=== PATIENT | male | born 1975 | race Caucasian/White ===

== ENCOUNTER 2016-10-06 23:36 | Inpatient (IN) ==
[2016-10-07] MEDS ORDERED: SODIUM CHLORIDE 0.9% 1,000 ML IV STA (00:03)
[2016-10-07] MEDS ORDERED: ALBUTEROL/IPRATROPIUM 3 ML NEB RESP TX STA (00:03)
[2016-10-07] MEDS ORDERED: ONDANSETRON 4 MG/2 ML VIAL IV STA (00:03)
[2016-10-07 00:22] LABS: Apearance,Urine CLOUDY (Clear); Bilirubin,Urine Negative (Negative); Blood, Urine Negative (Negative); Glucose,Urine (UA) Negative (Negative); Ketones,Urine Negative (Negative); Mucus,Urine Moderate /LPF (Occasional); Nitrite,Urine Negative (Negative); Protein,Urine 30 MG/DL; RBC,Urine 78 /HPF (0-4); Squamous Epithelial Cell,Urine Occasional /HPF (0-10); Urine Color Yellow (Yellow); Urine Specific Gravity 1.019 (1.001-1.035); Urine Urobilinogen < 2.0 EU/DL (0.2-1.0); WBC,Urine 295 /HPF (0-6)
--- NOTE | 2016-10-07 00:23 | EKG Report ---
Stationary ECG Study [facility] Test Date: 10/07/2016 12:18:38 AM Pat Name: VAHID FOSTER Department: Room: Gender: M [employer]: ARMIDA : 1975 Requested by: Marisel Tinoco Order Number: [id number] Reading MD: CARMEN GUTIERREZ Intervals [place] Rate: 108 P: 65 LA: 147 QRS: 53 QRSD: 104 T: 62 QT: 349 QTc: 412 Interpretive Statements SINUS TACHYCARDIA ABNORMAL RHYTHM ECG Electronically Signed On 10-07-16 08:59:15 CDT by CARMEN GUTIERREZ [id number]
[2016-10-07 00:41] LABS: Basophils % 0.3 % (0.0-0.8); Eosinophils # 0.2 10*3/uL (0.0-0.87); Eosinophils % 2.4 % (0.00-10.9); Hemoglobin 11.5 GM/DL (14.0-18.0); Immature Granulocytes % 0.3 %; Immature Granulocytes Absolute 0.02 #; Lymphocytes # 1.9 10*3/uL (1.4-4.0); Lymphocytes % 23.7 % (21.2-54.2); Mean Corpuscular HGB Conc 29.7 GM/DL (32-36); Mean Corpuscular Hemoglobin 25 PG (27-34); Mean Corpuscular Volume 83.9 FL (87-102); Mean Platelet Volume 9.7 FL (9.6-12.0); Monocytes # 0.5 10*3/uL (0.11-0.8); Neutrophils # 5.3 10*3/uL (1.4-7.4); Neutrophils % 67.3 % (38.7-73.9); Platelet Count 435 T/CUMM (130-400); Red Blood Count 4.61 MC/CUMM (3.8-5.5); Red Cell Distribution Width 16.3 % (9.3-17.3); White Blood Count 7.9 T/CUMM (4-12)
[2016-10-07] MEDS ORDERED: ONDANSETRON 4 MG/2 ML VIAL ONE (00:41)
[2016-10-07 00:48] LABS: Hematocrit 38.5 VOL% (42.0-52.0)
[2016-10-07 00:59] LABS: Albumin 2.9 G/DL (3.4-5.0); Bilirubin,Total 0.5 MG/DL (0.2-1.0); Calcium 9.6 MG/DL (8.5-10.1); Total Protein 7.3 G/DL (6.4-8.3)
[2016-10-07 01:00] LABS: Magnesium 2.2 MG/DL (1.8-2.4); Osmolality,Calculated 277.5 MOS/KG (273-304); Potassium 4.3 MMOL/L (3.5-5.1)
[2016-10-07] MEDS ORDERED: PIPERACILLIN/TAZOBACTAM 4.5 MG in SODIUM CHLORIDE 0.9% 100 ML IV STA (01:19)
[2016-10-07] MEDS ORDERED: PIPERACILLIN/TAZOBACTAM 4,500 MG VIAL IV ONE (01:33)
--- NOTE | 2016-10-07 01:38 | Emergency Department Note ---
Temo Eid Sierra, am scribing for, and in the presence of, Marisel Tinoco DO 23:56. IEarnest Catherine, DO, personally performed the services described in this documentation, ascribed by Nilsa Plascencia in my presence, and it is both accurate and complete . Arrival - Arrival Mode of Arrival: Stretcher Limitations: Physical Limitation Source: EMS - History of Present Illness HPI Narrative: Pt is a 41 y/o male that was brought to the ED from [facility] via EMS for evaluation of pt's trach tube falling out earlier today according to EMS. Pt is paraplegic due to a brain injury. Pt will open his eyes but is not responsive. Pt has no family present at the time. EMS reports pt's trach tube has been capped for over a month and skilled nursing. Nurse states pt was admitted to the hospital a couple of months for a "bad UTI." EMS reports the coughing began in the ER. No other complaints/pain in ED. Onset (ago): hour(s) Consistency: constant Allergies/Adverse Reactions: Allergies Allergy/AdvReac Type Severity Reaction Status Date / Time carisoprodol [From Soma] Allergy Unknown/Unable Verified 09/02/16 18:16 to obtain Home Medications: Home Medications Medication Instructions Recorded Confirmed Type Acetamin/Codeine 120-12 mg/5Ml 12.5 ml PEG Q8HR PRN 09/03/16 10/06/16 History [Tylenol/Codeine Liquid] Acetaminophen Tab [Tylenol Tab] 650 mg PER TUBE Q4H PRN #0 tablet 09/10/1610/06 Rx Albuterol/Ipratropium Neb [Duoneb] 3 ml RESP TX RT Q6H 09/10/16 10/06/16 Rx Ciprofloxacin 0.3% Oph Soln 2 drop RIGHT EYE Q4HR bottle 09/10/16 10/06/16 Rx [Ciloxan 0.3% Oph Soln] Diltiazem Tab [Cardizem Tab] 60 mg PO Q6H PRN #0 tablet 09/10/16 10/06/16 Rx Enoxaparin [Lovenox] 40 mg SUBCUT Q24H syringe 09/10/16 10/06/16 Rx Lansoprazole Odt Tab [Prevacid 30 mg PO DAILY tablet 09/10/16 10/06/16 Rx Solutab] Metoclopramide Tab [Reglan Tab] 5 mg PEG Q8H tablet 09/10/16 10/06/16 Rx Metoprolol Tartrate Tab [Lopressor 50 mg PEG BID tablet 09/10/16 10/06/16 Rx Tab] Morphine Inj 3 mg IV BID PRN #0 syringe 09/10/16 10/06/16 Rx Sodium Hypochlorite 0.25% Irr 1 applic TOP BID applic 09/10/16 10/06/16 Rx [Dakins 1/2 Strength 0.25% Soln] cefTAZidime [Fortaz] 1,000 mg IV Q12H vial 09/10/16 10/06/16 Rx levETIRAcetam TAB [Keppra Tab] 1,500 mg PEG BID tablet 09/10/16 10/06/16 Rx Review of System - Review of System ROS unobtainable: other (pt is paraplegic and is nonverbal and no family is present) Medical,Surgical,& Family Hx - Medical History Cardio: History of: Hypertension Neurology: History of: Neurological Problems (quadraplegia from an anoxic brain injury) Respiratory: History of: Obstructive Sleep Apnea, Respiratory Problems (trach) - Surgical History Surgical History: noncontributory - Family History Family History: noncontributory - Social History Smoking Status: Unknown if ever smoked Frequency of Alcohol Use: Unknown Type of Drug Use: Unknown Marital Status: Single Lives With:: Drafter [employer] Design Functional capacity: bed bound Exam Vital Signs: Vital Signs Temperature 98.2 F 10/06/16 23:36 Pulse Rate 107 H 10/07/16 01:10 Respiratory Rate 20 10/07/16 01:10 Blood Pressure 90/60 10/06/16 23:36 O2 Sat by Pulse Oximetry 100 10/07/16 01:10 - General Exam limited due to: other (pt is unresponsive) - Head Head exam: Present: atraumatic, normocephalic - Eye Eye exam: Present: PERRL, EOMI - ENT ENT exam: Present: other (thick sputum) - Neck Neck exam: Present: full ROM, other (trach site well healed) - Chest Chest inspection: Present: symmetric chest wall rise. Absent: tenderness - Respiratory Respiratory exam: Present: rhonchi (coarse rhonchi) - Cardiovascular Cardiovascular exam: Present: regular rate, normal rhythm, normal heart sounds - Abdominal Exam Abdominal exam: Present: soft, normal bowel sounds. Absent: distention, tenderness - exam: Present: other (catheter is draining urine with heavy sediment) - Neurological Exam Neurological exam: Present: alert - Psychiatric Psychiatric exam: Present: normal affect, normal mood - Skin Skin exam: Present: warm, dry Course Course Narrative: This is a 41-year-old male who is a quadriplegic from an anoxic brain injury. He has been using a tracheostomy for until about the last month. Now he has been on nasal cannula oxygen. He also has a PEG feeding tube. The patient is basically bedbound and is not verbally communicative at all. Apparently this evening the tracheostomy tube fell out the skilled nursing contacted the family and they wanted him evaluated. At arrival in the ER the stoma is noted to be well healed and stenotic. The patient is also noted to have a large amount of oral secretions and a very deep sounding cough. No other history is available when I initially evaluated the patient family was not present. The patient also has an indwelling Mcfadden I reviewed his chart his last admission was about a month and a half ago for urinary tract infection. Physical exam the patient is lying on the bed he is not on communicative he is asleep. He is in a position. HEENT exam there is some redness to both eyes. The oral mucosa is moist he has a lot of secretions that are being suctioned out of his mouth. They are yellow in color. His neck is supple he has a well-healed stoma in the trach region. There is no bleeding or drainage noted heart is regular rate and rhythm lungs reveal coarse expiratory next-door wheezing and rhonchi. Abdomen is round soft nontender with good bowel sounds he is a PEG tube present. His extremities are intact he is a quadriplegic. Neurologic exam no new deficits noted he has an anoxic brain injury. Chest x-ray done in the ER reveals a probable development of a right lower lobe pneumonia compared this to previous x -ray. Blood work has been obtained he also has a urinary tract infection. I have spoken to the hospitalist and feel the patient should be admitted for treatment of possible aspiration pneumonia. He has been given Zosyn in the ER he is also been given breathing treatments and blood cultures have been obtained. I have spoken to the patient's mom who is in the ER and she is in agreement with this treatment plan. - Consultations Consultation #1: Dr. Thompson has accepted the admission Time: 01:38 Results - Labs CBC & BMP: 10/07/16 00:28 10/07/16 00:28 Lab Results: I have reviewed the patients labs Labs: Laboratory Tests 09/02/16 09/02/16 10/07/16 20:34 20:34 00:11 WBC 12.5 H Hgb 9.3 L Hct 31.5 L MCV 81.2 L MCH 24 L MCHC 29.5 L Plt Count 532 H MPV 8.9 L Neut % (Auto) 79.7 H Lymph % (Auto) 12.2 L Neut # (Auto) 10.0 H Anion Gap 17.5 H Creatinine 0.40 L BUN/Creatinine Ratio 37.00 H Glucose 108 H AST 69 H ALT 107 H Alkaline Phosphatase 118 H Albumin 2.4 L Globulin 4.4 H Albumin/Globulin Ratio 0.5 L Urine Color Yellow Urine Appearance Cloudy Urine pH 6.0 Ur Specific [place] 1.019 Urine Protein 30 Urine Glucose (UA) Negative Urine Ketones Negative Urine Blood Negative Urine Nitrate Negative Urine Bilirubin Negative Urine Urobilinogen < 2.0 H Urine Leukocytes Large H Urine RBC 78 Urine WBC 295 Ur Squamous Epith Cells Occasional Urine Mucus Moderate Urine Yeast (Budding) Many Laboratory Tests 10/06/16 10/07/16 10/07/16 00:28 00:28 00:28 Hgb 11.5 L Hct 38.5 L MCV 83.9 L MCH 25 L MCHC 29.7 L Plt Count 435 H Creatinine 0.40 L BUN/Creatinine Ratio 35.00 H Lactic Acid 1.0 Albumin 2.9 L Globulin 4.4 H Albumin/Globulin Ratio 0.6 L - EKG EKG results: interpreted by ERMD, WNL EKG shows: tachycardia - Diagnostic Findings Procedure: Chest x-ray: image reviewed by me (Right lower lobe pneumonia.) Disposition Clinical Impression: Aspiration pneumonia, UTI (urinary tract infection) Case discussed with: patient's family Disposition: Still a Patient Condition: Stable Time of Disposition: 01:38
--- NOTE | 2016-10-07 02:08 | Hospitalist History & Physical ---
Assessment and Plan (1) Conjunctivitis, right eye Status: Acute Assessment and plan: Resume ciprofloxacin eyedrops. Patient did have them looked at the detention but recently they have been erroneously discontinued and the eye information continues Current Visit: Yes Qualifiers: Conjunctivitis type: chronic Chronic conjunctivitis type: bacterial Qualified Code(s): H10.401 - Unspecified chronic conjunctivitis, right eye (2) Aspiration pneumonia Status: Acute Assessment and plan: Patient is an institutionalized individual therefore this should be treated as a healthcare associated pneumonia with aspiration. She was started Zosyn this will be continued at a dose of 4.5 g IV every 6 hours. Unfortunately I cannot use Zyvox on this patient because of multiple other medication that would interact badly with it. I will therefore settle for vancomycin 1.25 g IV every 12 hours. Consult pharmacy for vancomycin pharmacokinetics and dosing. Duration of antibiotics should be at least 6 days and then reevaluate for alternative treatment Current Visit: Yes (3) UTI (urinary tract infection) Status: Acute Assessment and plan: Above antibiotic should suffice. For microbiology of the urinary cultures Current Visit: Yes History of Present Illness Chief complaint: Dislodged cupped tracheostomy/respiratory distress History of present illness: Mr. Arreola is a 41 year old male hat was brought to the ED from [facility] via EMS for evaluation of pt's trach tube falling out earlier today according to EMS. Pt is paraplegic due to a brain injury. Pt will open his eyes but is not responsive. Pt has no family present at the time. EMS reports pt's trach tube has been capped for over a month and detention. Nurse states pt was admitted to the hospital a couple of months for a "bad UTI." EMS reports the coughing began in the ER. Patient was seen facing the emergency room by Dr. Tinoco who explained to me that this patient had copious mucus suctioned out from his airway. Upon the obtaining an x-ray she was found to have a right lower lobe pneumonia. Patient also has a PEG tube and the possibility of aspiration. Right now the tracheostomy site is dressed and patient is saturating 95% on 2 L/min nasal cannula oxygen. He also has an indwelling Mcfadden catheter. Purulent urine. There is no fever and his total white count is only 7900. Home Medications Medication Instructions Recorded Confirmed Type Acetamin/Codeine 120-12 mg/5Ml 12.5 ml PEG Q8HR PRN 09/03/16 10/06/16 History [Tylenol/Codeine Liquid] Acetaminophen Tab [Tylenol Tab] 650 mg PER TUBE Q4H PRN #0 tablet 09/10/1610/06 Rx Albuterol/Ipratropium Neb [Duoneb] 3 ml RESP TX RT Q6H 09/10/16 10/06/16 Rx Ciprofloxacin 0.3% Oph Soln 2 drop RIGHT EYE Q4HR bottle 09/10/16 10/06/16 Rx [Ciloxan 0.3% Oph Soln] Diltiazem Tab [Cardizem Tab] 60 mg PO Q6H PRN #0 tablet 09/10/16 10/06/16 Rx Enoxaparin [Lovenox] 40 mg SUBCUT Q24H syringe 09/10/16 10/06/16 Rx Lansoprazole Odt Tab [Prevacid 30 mg PO DAILY tablet 09/10/16 10/06/16 Rx Solutab] Metoclopramide Tab [Reglan Tab] 5 mg PEG Q8H tablet 09/10/16 10/06/16 Rx Metoprolol Tartrate Tab [Lopressor 50 mg PEG BID tablet 09/10/16 10/06/16 Rx Tab] Morphine Inj 3 mg IV BID PRN #0 syringe 09/10/16 10/06/16 Rx Sodium Hypochlorite 0.25% Irr 1 applic TOP BID applic 09/10/16 10/06/16 Rx [Dakins 1/2 Strength 0.25% Soln] cefTAZidime [Fortaz] 1,000 mg IV Q12H vial 09/10/16 10/06/16 Rx levETIRAcetam TAB [Keppra Tab] 1,500 mg PEG BID tablet 09/10/16 10/06/16 Rx Allergies Allergy/AdvReac Type Severity Reaction Status Date / Time carisoprodol [From Soma] Allergy Unknown/Unable Verified 09/02/16 18:16 to obtain Medical,Surgical,& Family Hx - Medical History Cardio: History of: Hypertension Neurology: History of: Neurological Problems (quadraplegia from an anoxic brain injury; significant flexion contractures) Respiratory: History of: Obstructive Sleep Apnea, Respiratory Problems (trach) - Surgical History Additional Surgical History: Patient recently underwent debridement of sacral ulcers patient has chronic pressure ulcers in the sacral coccygeal area - Social History Smoking Status: Unknown if ever smoked Frequency of Alcohol Use: Unknown Type of Drug Use: Unknown Review of systems: 12 point system assessment was done. What stands out nausea the pneumonia in the right lower lobe patient with significant flexion contractures from he is quadriplegic patient with anoxic brain damage Exam - Constitutional Vitals: Period Temp Pulse Resp BP Sys/Plata Pulse Ox Last 24 Hr 98.2 F-98.2 F 100-108 20-26 90-90/60-60 94-100 General appearance: other (Incommunicado patient with anoxic brain damage significant contractures) - Head Head exam: Present: normocephalic, atraumatic - Eye Eye exam: Present: other (Noted right eye conjunctivitis) Pupils: Present: JOSE - Neck Neck exam: Present: other (Old tracheal stoma site is dressed is no drainage) - Respiratory Respiratory exam: Present: other (Poor inspiratory pool, no wheezing bilateral rhonchi) - Cardiovascular Cardiovascular exam: Present: regular rate and rhythm - GI/Abdominal GI/Abdominal exam: Present: normal bowel sounds - Extremities Exam Extremities exam: Present: other (Severe flexion contractures dose of muscle bulk) - Back Exam Back exam: Present: other (Contractures) - Neurological Exam Neurological exam: Present: other (Anoxic brain damage with severe flexion contractures) - Psychiatric Psychiatric exam: Present: other (No means of communication, anoxic brain damage ) - Skin Skin exam: Present: other (Sacral decubiti bimalleolar pressure ulcers) Results - Labs CBC & BMP: 10/07/16 00:28 10/07/16 00:28 Lab Results: I have reviewed the past 24 hour labs - Diagnostic Findings Procedure: Chest x-ray: image reviewed by me (Ppossible bibasilar infiltrate)
[2016-10-07] MEDS: CIPROFLOXACIN 0.3% OPH SOLN 2.5 ML BOTTLE RIGHT EYE SCH ×5 (05:36→21:27)
[2016-10-07] MEDS: METOCLOPRAMIDE 5 MG TABLET PEG SCH ×3 (05:36→21:28)
[2016-10-07] MEDS: VANCOMYCIN INJ 1,250 MG in SODIUM CHLORIDE 0.9% 250 ML IV SCH ×2 (05:40→17:03)
--- NOTE | 2016-10-07 06:52 | XRay Report ---
History: Shortness of breath Date: 10/07/2016 Study: Chest x-ray AP portable Comparison exam: September 24, 2016 The previous tracheostomy tube and right PICC line have been removed. The cardiomediastinal silhouette is unremarkable. The pulmonary vasculature is not engorged. There is some mild strandy and hazy bibasilar infiltrate. There is no gross pleural effusion. The osseous structures are unchanged. Impression: Mild bibasilar pneumonia. Consider aspiration pneumonia PROCEDURE INTERPRETED AT [facility] Final Report Signed by: Dr. Ivette Delgadillo
[2016-10-07] MEDS: ALBUTEROL/IPRATROPIUM 3 ML NEB RESP TX SCH ×3 (07:40→20:36)
[2016-10-07] MEDS: SODIUM HYPOCHLORITE 0.25% IRRIG 473 ML BOTTLE TOP SCH ×2 (08:02→20:55)
[2016-10-07] MEDS: ENOXAPARIN 40 MG/0.4 ML SYRINGE SUBCUT SCH (08:02)
[2016-10-07] MEDS: LANSOPRAZOLE ODT 30 MG TABLET PO SCH (08:02)
[2016-10-07] MEDS: METOPROLOL TARTRATE 50 MG TABLET PEG SCH ×2 (08:03→20:55)
[2016-10-07] MEDS: levETIRAcetam 500 MG TABLET PEG SCH ×2 (08:03→20:55)
[2016-10-07] MEDS: PIPERACILLIN/TAZOBACTAM 3,375 MG in SODIUM CHLORIDE 0.9% 100 ML IV SCH ×2 (09:48→20:55)
--- NOTE | 2016-10-07 09:48 | Event Note ---
Consult for wounds. I have been following this patient at [facility]. His sacral ulcer and ankle ulcers all appear healthy and clean. There is no need for debridement. Continue local wound care. I will continue to follow him when he goes back down to [facility].
--- NOTE | 2016-10-07 11:30 | Pulmonology Consult Note ---
Assessment and Plan (1) Right lower lobe pneumonia Status: Acute Assessment and plan: Probably has a mild infiltrate at the right base. Agree with empiric antibiotics. Does not need bronchoscopy at this point. He has a pretty good cough it appears. Current Visit: Yes (2) Urinary tract infection Status: Acute Assessment and plan: Abnormal urinalysis suggesting urinary tract infection. Cultures pending. Previously grew Pseudomonas that was sensitive to Zosyn. Agree with Zosyn this time. Current Visit: No Qualifiers: Urinary tract infection type: catheter-associated UTI Indwelling urinary catheter type: indwelling urethral catheter Encounter type: initial encounter Qualified Code(s): T83.511A - Infection and inflammatory reaction due to indwelling urethral catheter, initial encounter; N39.0 - Urinary tract infection , site not specified (3) Sacral decubitus ulcer, stage IV Status: Chronic Assessment and plan: Dr. Molina has seen him for this. He feels his decubitus ulcers are clean. Just needs wound care while here. Current Visit: No (4) Anoxic brain injury Status: Chronic Assessment and plan: Patient is being fed through PEG tube. He is not responsive. His tracheostomy is now out. If he can control his secretions with cough then he will not need to have the trach replaced. If his x-ray gets worse or is not able to clear secretions, then the tracheostomy could be replaced. Current Visit: No History of Present Illness Chief complaint: Tracheostomy came out History of present illness: Mr. 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 He had a 4 month hospitalization at [facility] with mechanical ventilation and tracheostomy. He went back to a half-way. He developed a urinary tract infection and sepsis a few weeks ago. He also has multiple decubitus ulcers. He was hospitalized here and then at [facility]. His pressure ulcers are better and clean according to Dr. Green the surgeon follows those. He was sent back from [facility] to [facility] and apparently there coughed his tracheostomy out. He was sent over here primarily for that. He was found to have a mild patchy infiltrate at the right lower lobe on his x-ray. Also has a lot of phlegm production. The tracheostomy had just been used for suctioning him out. He was keeping it closed most of the time. At the present time he is comfortable with the tracheostomy out. He has a pretty good cough. He has not had any fever. His white blood count is normal. He does have an abnormal urinalysis and an indwelling Mcfadden catheter. Home Medications Medication Instructions Recorded Confirmed Type Acetamin/Codeine 120-12 mg/5Ml 12.5 ml PEG Q8HR PRN 09/03/16 10/06/16 History [Tylenol/Codeine Liquid] Acetaminophen Tab [Tylenol Tab] 650 mg PER TUBE Q4H PRN #0 tablet 09/10/1610/06 Rx Albuterol/Ipratropium Neb [Duoneb] 3 ml RESP TX RT Q6H 09/10/16 10/06/16 Rx Ciprofloxacin 0.3% Oph Soln 2 drop RIGHT EYE Q4HR bottle 09/10/16 10/06/16 Rx [Ciloxan 0.3% Oph Soln] Diltiazem Tab [Cardizem Tab] 60 mg PO Q6H PRN #0 tablet 09/10/16 10/06/16 Rx Enoxaparin [Lovenox] 40 mg SUBCUT Q24H syringe 09/10/16 10/06/16 Rx Lansoprazole Odt Tab [Prevacid 30 mg PO DAILY tablet 09/10/16 10/06/16 Rx Solutab] Metoclopramide Tab [Reglan Tab] 5 mg PEG Q8H tablet 09/10/16 10/06/16 Rx Metoprolol Tartrate Tab [Lopressor 50 mg PEG BID tablet 09/10/16 10/06/16 Rx Tab] Morphine Inj 3 mg IV BID PRN #0 syringe 09/10/16 10/06/16 Rx Sodium Hypochlorite 0.25% Irr 1 applic TOP BID applic 09/10/16 10/06/16 Rx [Dakins 1/2 Strength 0.25% Soln] cefTAZidime [Fortaz] 1,000 mg IV Q12H vial 09/10/16 10/06/16 Rx levETIRAcetam TAB [Keppra Tab] 1,500 mg PEG BID tablet 09/10/16 10/06/16 Rx Allergies Allergy/AdvReac Type Severity Reaction Status Date / Time carisoprodol [From [facility]] Allergy Unknown/Unable Verified 09/02/16 18:16 to obtain ROS unobtainable: due to mental status Exam (Pulmonay) H&P - Constitutional Vitals: Period Temp Pulse Resp BP Sys/Plata Pulse Ox Last 24 Hr 96.8 F-98.1 F 111-115 19-20 115-123/73-83 93-96 Exam: Patient's afebrile. Oxygen saturation 98% on 2 L nasal biprong's. Pupils react to light he is unresponsive but does move his head and eyes side to side. He does move his arms spontaneously but without purpose apparently. He did pull his tracheostomy out himself but I suspect it was by accident. Tracheostomy site still open but bandaged. Chest reveals few rhonchi equal breath sounds does not sound tight. Heart normal rate rhythm no murmurs no rubs no gallops. Abdomen soft nontender no masses. Extremities no clubbing cyanosis edema. Multiple decubitus ulcers as described by wound care nurse and Dr. Green. Medical,Surgical,& Family Hx - Medical History Cardio: History of: Hypertension Neurology: History of: Neurological Problems (quadraplegia from an anoxic brain injury; significant flexion contractures) Respiratory: History of: Obstructive Sleep Apnea, Respiratory Problems (trach) - Family History Family History: Reports;: Family Hypertension (moms, mom) - Social History Smoking Status: Unknown if ever smoked Frequency of Alcohol Use: Unknown Type of Drug Use: Unknown Results - Labs CBC & BMP: 10/07/16 00:28 10/07/16 00:28 Lab Results: I have reviewed the past 24 hour labs - Diagnostic Findings Procedure: Chest x-ray: image reviewed by me (Mild strand infiltrate right lower lobe. Otherwise same as before.)
[2016-10-07] MEDS: DORNASE ALFA 2.5 MG/2.5 ML VIAL RESP TX SCH (20:30)
[2016-10-08] MEDS: ALBUTEROL/IPRATROPIUM 3 ML NEB RESP TX SCH ×4 (00:13→20:19)
[2016-10-08] MEDS: PIPERACILLIN/TAZOBACTAM 3,375 MG in SODIUM CHLORIDE 0.9% 100 ML IV SCH ×3 (01:56→17:22)
[2016-10-08] MEDS: CIPROFLOXACIN 0.3% OPH SOLN 2.5 ML BOTTLE RIGHT EYE SCH ×7 (01:56→22:41)
[2016-10-08] MEDS: VANCOMYCIN INJ 1,250 MG in SODIUM CHLORIDE 0.9% 250 ML IV SCH ×2 (05:49→23:12)
[2016-10-08] MEDS: METOCLOPRAMIDE 5 MG TABLET PEG SCH ×3 (05:58→22:42)
[2016-10-08 06:58] LABS: Calcium 9.1 MG/DL (8.5-10.1); Magnesium 2.2 MG/DL (1.8-2.4); Osmolality,Calculated 286.8 MOS/KG (273-304); Potassium 3.8 MMOL/L (3.5-5.1); Prealbumin 24.7 MG/DL (20-40)
[2016-10-08] MEDS: DORNASE ALFA 2.5 MG/2.5 ML VIAL RESP TX SCH ×2 (08:01→20:19)
[2016-10-08] MEDS: ENOXAPARIN 40 MG/0.4 ML SYRINGE SUBCUT SCH (08:05)
[2016-10-08] MEDS: levETIRAcetam 500 MG TABLET PEG SCH ×2 (08:06→21:27)
[2016-10-08] MEDS: METOPROLOL TARTRATE 50 MG TABLET PEG SCH ×2 (08:06→21:27)
[2016-10-08] MEDS: SODIUM HYPOCHLORITE 0.25% IRRIG 473 ML BOTTLE TOP SCH ×2 (08:06→22:42)
[2016-10-08] MEDS: LANSOPRAZOLE ODT 30 MG TABLET PO SCH (08:06)
--- NOTE | 2016-10-08 08:43 | Pulmonology Progress Note ---
Pulmonary - PN: Subj Interval history: This 41-year-old white male was sent over from the [facility] after pulling out his tracheostomy. He seems to have done fine with it out. We had considered removing an earlier but still needed it to suction him from time to time. He seems to be breathing better with the tracheostomy out. I would just leave it out. He has one mild area of stranding in his right mid lung that has been called pneumonia. He is on antibiotics for that. Also has urinary tract infection. Could be changed to antibiotics per PEG tube and go back to the [facility] tomorrow if chest x-ray looks okay in the morning. Exam (Progress Note) - Constitutional Vitals: Period Temp Pulse Resp BP Sys/Plata Pulse Ox Last 24 Hr 97.1 F-99.7 F 114-134 14-24 111-130/54-77 90-98 Exam: He has severe hypoxic brain injury and is not responsive. He does look around with his eyes and move his arms from time to time. He is afebrile. Pupils were reactive. Throat clear. Neck supple. Has a bandage over his tracheostomy site. I do not hear any air leak but it will probably take a few days for the cystocele. Chest shows minimal expiratory rhonchi. Actually sounds pretty clear. Heart normal rate rhythm no murmurs. Abdomen soft no masses. PEG tube in place and looks clean. Extremities no clubbing cyanosis or edema. Results - Labs CBC & BMP: 10/07/16 00:28 10/08/16 06:09 Lab Results: I have reviewed the past 24 hour labs Assessment and Plan (1) Right lower lobe pneumonia Status: Acute Assessment and plan: Probably has a mild infiltrate at the right base. Agree with empiric antibiotics. Does not need bronchoscopy at this point. He has a pretty good cough it appears. 10/08/16 very mild pneumonia at worst. Probably could change to Ceftin per PEG tube and discharge tomorrow back to [facility] if chest x-ray is stable or better. Current Visit: Yes (2) Urinary tract infection Status: Acute Assessment and plan: Abnormal urinalysis suggesting urinary tract infection. Cultures pending. Previously grew Pseudomonas that was sensitive to Zosyn. Agree with Zosyn this time. 10/08/16 I do not see a report on the urine culture. Current Visit: No Qualifiers: Urinary tract infection type: catheter-associated UTI Indwelling urinary catheter type: indwelling urethral catheter Encounter type: initial encounter Qualified Code(s): T83.511A - Infection and inflammatory reaction due to indwelling urethral catheter, initial encounter; N39.0 - Urinary tract infection , site not specified (3) Sacral decubitus ulcer, stage IV Status: Chronic Assessment and plan: Dr. Molina has seen him for this. He feels his decubitus ulcers are clean. Just needs wound care while here. Current Visit: No (4) Anoxic brain injury Status: Chronic Assessment and plan: Patient is being fed through PEG tube. He is not responsive. His tracheostomy is now out. If he can control his secretions with cough then he will not need to have the trach replaced. If his x-ray gets worse or is not able to clear secretions, then the tracheostomy could be replaced. 10/08/16 it does appear that he can defend his airway. Has a good cough. Have added cough assist. This could be continued at the nursing center. Current Visit: No
--- NOTE | 2016-10-08 09:03 | Hospitalist Progress Note ---
<Lainey Rodriguez - Last Filed: 10/08/16 09:05> Assessment and Plan (1) Right lower lobe pneumonia Status: Acute Assessment and plan: Agree with pulmonary recommendation; continue ABT. Will change to tablets for peg administration. BC NGTD; WBC's 7.9 today. Current Visit: Yes (2) UTI (urinary tract infection) Status: Acute Assessment and plan: Continue ABT as previously ordered. Current Visit: Yes Hospitalist: Subjective Interval history: Patient seen and examined. No significant overnight events. Tracheostomy decannulated; no respiratory issues reported per staff. Will monitor overnight ; plan to return to SNF in AM. Exam - Constitutional Vitals: Period Temp Pulse Resp BP Sys/Plata Pulse Ox Last 24 Hr 97.1 F-99.7 F 114-134 14-24 111-130/54-77 90-98 General appearance: normal weight, no acute distress - Head Head exam: Present: normal inspection, normocephalic, atraumatic - Eye Eye exam: Present: EOMI. Absent: conjunctival injection, nystagmus Pupils: Present: JOSE, normal accommodation - ENT ENT exam: Present: normal exam, normal external ear exam, normal oropharynx - Neck Neck exam: Present: normal inspection. Absent: lymphadenopathy, meningismus, tenderness, thyromegaly - Respiratory Respiratory exam: Present: rhonchi (scattered), other (tracheostomy de- cannulated.) - Cardiovascular Cardiovascular exam: Present: regular rate and rhythm. Absent: diastolic murmur , gallop, JVD, rubs - GI/Abdominal GI/Abdominal exam: Present: soft, other (PEG intact) - Extremities Exam Extremities exam: Present: other (flexion contractures noted to upper and lower torso) - Neurological Exam Neurological exam: Present: altered, motor sensory deficit - Psychiatric Psychiatric exam: Present: normal affect - Skin Skin exam: Present: normal color, diaphoretic Results - Labs CBC & BMP: 10/07/16 00:28 10/08/16 06:09 Lab Results: I have reviewed the past 24 hour labs <Noni Amaro - Last Filed: 10/08/16 11:35> Hospitalist: Subjective Interval history: Patient seen and examined along with DOV Rodriguez, agree with history, assessment and plan as documented. Patient looks more comfortable today. Possible return to senior care tomorrow on po antibiotics. Exam - Constitutional Vitals: Period Temp Pulse Resp BP Sys/Plata Pulse Ox Last 24 Hr 97.1 F-99.7 F 112-134 14-24 111-130/54-77 90-98 Results - Labs CBC & BMP: 10/07/16 00:28 10/08/16 06:09
[2016-10-08] MEDS: ACETAMINOPHEN 325 MG TABLET PER TUBE PRN (21:27)
[2016-10-09] MEDS: CIPROFLOXACIN 0.3% OPH SOLN 2.5 ML BOTTLE RIGHT EYE SCH ×6 (01:51→22:25)
[2016-10-09] MEDS: PIPERACILLIN/TAZOBACTAM 3,375 MG in SODIUM CHLORIDE 0.9% 100 ML IV SCH ×3 (01:57→18:23)
[2016-10-09] MEDS: ALBUTEROL/IPRATROPIUM 3 ML NEB RESP TX SCH ×4 (03:02→20:00)
[2016-10-09] MEDS: METOCLOPRAMIDE 5 MG TABLET PEG SCH ×3 (05:59→22:25)
[2016-10-09 06:59] LABS: Basophils % 0.2 % (0.0-0.8); Eosinophils # 0.1 10*3/uL (0.0-0.87); Eosinophils % 0.6 % (0.00-10.9); Hematocrit 35.1 VOL% (42.0-52.0); Hemoglobin 10.4 GM/DL (14.0-18.0); Immature Granulocytes % 0.6 %; Immature Granulocytes Absolute 0.09 #; Lymphocytes # 1.8 10*3/uL (1.4-4.0); Lymphocytes % 11.2 % (21.2-54.2); Mean Corpuscular HGB Conc 29.6 GM/DL (32-36); Mean Corpuscular Hemoglobin 25 PG (27-34); Monocytes # 0.7 10*3/uL (0.11-0.8); Monocytes % 4.1 % (1.7-12.7); Neutrophils # 13.6 10*3/uL (1.4-7.4); Neutrophils % 83.3 % (38.7-73.9); Platelet Count 434 T/CUMM (130-400); Red Blood Count 4.18 MC/CUMM (3.8-5.5); Red Cell Distribution Width 16.5 % (9.3-17.3); White Blood Count 16.3 T/CUMM (4-12)
[2016-10-09 07:30] LABS: Albumin 2.7 G/DL (3.4-5.0); Bilirubin,Total 0.6 MG/DL (0.2-1.0); Calcium 8.8 MG/DL (8.5-10.1); Magnesium 2.2 MG/DL (1.8-2.4); Osmolality,Calculated 290.6 MOS/KG (273-304); Potassium 3.7 MMOL/L (3.5-5.1); Total Protein 6.8 G/DL (6.4-8.3)
[2016-10-09] MEDS: DORNASE ALFA 2.5 MG/2.5 ML VIAL RESP TX SCH ×2 (07:34→20:00)
--- NOTE | 2016-10-09 07:56 | Pulmonology Progress Note ---
Pulmonary - PN: Subj Interval history: This 41-year-old white male was [facility] after pulling out his tracheostomy. He seems to have done fine with it out. We had considered removing an earlier but still needed it to suction him from time to time. He seems to be breathing better with the tracheostomy out. I would just leave it out. He has one mild area of stranding in his right mid lung that has been called pneumonia. He is on antibiotics for that. Also has urinary tract infection. Could be changed to antibiotics per PEG tube and go back to the [facility] tomorrow if chest x-ray looks okay in the morning. 10/09/2016 patient having a little more difficulty with coarse rhonchi. White blood count is up to 16,000. No fever. Oxygen saturations acceptable. Chest x -ray looks a little bit worse. I still favor leaving the tracheostomy out if we can. I will plan bronchoscopy in the morning and evaluate his airways. May yet want to get the trach replaced. If he has problems with hypoxemia that is what I would do next. Exam (Progress Note) - Constitutional Vitals: Period Temp Pulse Resp BP Sys/Plata Pulse Ox Last 24 Hr 97.1 F-101.0 F 112-132 14-24 106-122/66-91 90-99 Exam: He has severe hypoxic brain injury and is not responsive. He does look around with his eyes and move his arms from time to time. He is afebrile. Pupils were reactive. Throat clear. Neck supple. Has a bandage over his tracheostomy site. Chest shows rhonchi bilaterally. Equal breath sounds. Heart normal rate rhythm no murmurs. Abdomen soft no masses. PEG tube in place and looks clean. Extremities no clubbing cyanosis or edema. Results - Labs CBC & BMP: 10/09/16 06:31 10/09/16 06:31 Lab Results: I have reviewed the past 24 hour labs - Diagnostic Findings Procedure: Chest x-ray: image reviewed by me (Slightly increased interstitial markings in the bases.) Assessment and Plan (1) Right lower lobe pneumonia Status: Acute Assessment and plan: Probably has a mild infiltrate at the right base. Agree with empiric antibiotics. Does not need bronchoscopy at this point. He has a pretty good cough it appears. 10/08/16 very mild pneumonia at worst. Probably could change to Ceftin per PEG tube and discharge tomorrow back to [facility] if chest x-ray is stable or better. 10/09/2016 he has some bibasilar pneumonia. Elevated white count. No fever. Continuing empiric antibiotics. Not ready to go back to [facility] as yet. I will plan bronchoscopy in the morning. Make a decision after that as to whether we can leave the trach out long-term. I certainly hope that we can do that. He should be able to breathe better with the trach out then with it and and capped. Current Visit: Yes (2) Urinary tract infection Status: Acute Assessment and plan: Abnormal urinalysis suggesting urinary tract infection. Cultures pending. Previously grew Pseudomonas that was sensitive to Zosyn. Agree with Zosyn this time. 10/08/16 I do not see a report on the urine culture. 10/09/2016 only grew some yeast. Cover with Diflucan. Current Visit: No Qualifiers: Urinary tract infection type: catheter-associated UTI Indwelling urinary catheter type: indwelling urethral catheter Encounter type: initial encounter Qualified Code(s): T83.511A - Infection and inflammatory reaction due to indwelling urethral catheter, initial encounter; N39.0 - Urinary tract infection , site not specified (3) Sacral decubitus ulcer, stage IV Status: Chronic Assessment and plan: Dr. Molina has seen him for this. He feels his decubitus ulcers are clean. Just needs wound care while here. 10/09/2016 continuing wound care. Current Visit: No (4) Anoxic brain injury Status: Chronic Assessment and plan: Patient is being fed through PEG tube. He is not responsive. His tracheostomy is now out. If he can control his secretions with cough then he will not need to have the trach replaced. If his x-ray gets worse or is not able to clear secretions, then the tracheostomy could be replaced. 10/08/16 it does appear that he can defend his airway. Has a good cough. Have added cough assist. This could be continued at the nursing center. 10/09/2016 he has a pretty good cough. Remains to be seen how he will do with his pneumonia with his tracheostomy out. Current Visit: No
[2016-10-09 08:12] LABS: INR 1.2; PT Patient Result 12.5 SECS
--- NOTE | 2016-10-09 08:24 | XRay Report ---
Referring Physician: ANKITA Rodriguez Exam: XR chest 1V portable Date: October 09, 2016 at 6:02 AM Reason: COPD Comparison: Chest one view portable October 07, 2016 Findings: The cardiac silhouette is upper normal in size. The lungs are poorly expanded, and there are scattered opacities within both lower lung zones. These opacities likely represent atelectasis, but there could also be pneumonia. No pneumothorax or pleural effusion is identified. The osseous structures appear stable. There is again a sclerotic density at the left humeral neck. Please see previous studies of the left humerus for further details. Impression: There are scattered opacities within both lower lung zones. The opacities within the left lower lung zone have slightly increased. This likely represents atelectasis, but there could also be pneumonia. PROCEDURE INTERPRETED AT [facility] DEPARTMENT OF RADIOLOGY Final Report Signed by: Dr. Jose De Jesus
[2016-10-09] MEDS: ENOXAPARIN 40 MG/0.4 ML SYRINGE SUBCUT SCH (08:42)
[2016-10-09] MEDS: METOPROLOL TARTRATE 50 MG TABLET PEG SCH ×2 (08:43→20:48)
[2016-10-09] MEDS: LANSOPRAZOLE ODT 30 MG TABLET PO SCH (08:43)
[2016-10-09] MEDS: levETIRAcetam 500 MG TABLET PEG SCH ×2 (08:43→20:49)
[2016-10-09] MEDS: methylPREDNISolone SOD SUC 40 MG/1 ML VIAL IV SCH ×2 (08:44→18:20)
[2016-10-09] MEDS: SODIUM HYPOCHLORITE 0.25% IRRIG 473 ML BOTTLE TOP SCH ×2 (08:44→21:01)
[2016-10-09] MEDS: VANCOMYCIN INJ 1,250 MG in SODIUM CHLORIDE 0.9% 250 ML IV SCH ×2 (08:45→22:19)
--- NOTE | 2016-10-09 16:14 | Hospitalist Progress Note ---
Assessment and Plan (1) Urinary tract infection Status: Acute Current Visit: No Qualifiers: Urinary tract infection type: catheter-associated UTI Indwelling urinary catheter type: indwelling urethral catheter Encounter type: initial encounter Qualified Code(s): T83.511A - Infection and inflammatory reaction due to indwelling urethral catheter, initial encounter; N39.0 - Urinary tract infection , site not specified (2) Anoxic brain injury Status: Chronic Current Visit: No (3) Right lower lobe pneumonia Status: Acute Current Visit: Yes Hospitalist: Subjective Interval history: No acute events overnight. Increase in wbc count today. Afebrile. Pulmonary assisting. Plan for bronchoscopy tomorrow. Exam - Constitutional Vitals: Period Temp Pulse Resp BP Sys/Plata Pulse Ox Last 24 Hr 98.1 F-99.9 F 107-132 14-24 106-135/70-91 90-99 General appearance: normal weight - Head Head exam: Present: normocephalic, atraumatic - Eye Eye exam: Present: EOMI Pupils: Present: JOSE - ENT ENT exam: Present: normal exam - Neck Neck exam: Present: normal inspection - Respiratory Respiratory exam: Present: clear to auscultation bilaterally. Absent: rhonchi, wheezes - Cardiovascular Cardiovascular exam: Present: regular rate and rhythm - GI/Abdominal GI/Abdominal exam: Present: normal bowel sounds, soft. Absent: tenderness, rebound - Extremities Exam Extremities exam: Present: normal inspection - Back Exam Back exam: Present: normal inspection - Skin Skin exam: Present: warm, intact Results - Labs CBC & BMP: 10/09/16 06:31 10/09/16 06:31
[2016-10-09] MEDS: DILTIAZEM 60 MG TABLET PO PRN (20:49)
[2016-10-10] MEDS: ALBUTEROL/IPRATROPIUM 3 ML NEB RESP TX SCH ×4 (00:36→19:19)
[2016-10-10] MEDS: methylPREDNISolone SOD SUC 40 MG/1 ML VIAL IV SCH ×4 (01:21→23:00)
[2016-10-10] MEDS: PIPERACILLIN/TAZOBACTAM 3,375 MG in SODIUM CHLORIDE 0.9% 100 ML IV SCH ×3 (01:26→18:40)
[2016-10-10] MEDS: CIPROFLOXACIN 0.3% OPH SOLN 2.5 ML BOTTLE RIGHT EYE SCH ×6 (01:29→21:44)
[2016-10-10] MEDS: METOCLOPRAMIDE 5 MG TABLET PEG SCH ×3 (06:03→22:11)
[2016-10-10] MEDS ORDERED: PROMETHAZINE 25 MG/1 ML VIAL IM ONE (07:00)
[2016-10-10] MEDS ORDERED: LIDOCAINE 1% 20 ML VIAL MISC INJ ONE (07:30)
[2016-10-10] MEDS ORDERED: MIDAZOLAM 2 MG/2 ML VIAL IV ONE (07:30)
[2016-10-10 07:45] LABS: Hematocrit 34.3 VOL% (42.0-52.0); Hemoglobin 10.3 GM/DL (14.0-18.0); Immature Granulocytes % 0.4 %; Immature Granulocytes Absolute 0.05 #; Lymphocytes # 0.9 10*3/uL (1.4-4.0); Lymphocytes % 7.8 % (21.2-54.2); Mean Corpuscular Hemoglobin 25 PG (27-34); Mean Corpuscular Volume 83.9 FL (87-102); Mean Platelet Volume 10.2 FL (9.6-12.0); Monocytes # 0.1 10*3/uL (0.11-0.8); Monocytes % 1.2 % (1.7-12.7); Neutrophils # 10.5 10*3/uL (1.4-7.4); Neutrophils % 90.6 % (38.7-73.9); Platelet Count 406 T/CUMM (130-400); Red Blood Count 4.09 MC/CUMM (3.8-5.5); Red Cell Distribution Width 16.1 % (9.3-17.3); White Blood Count 11.6 T/CUMM (4-12)
[2016-10-10] MEDS: DORNASE ALFA 2.5 MG/2.5 ML VIAL RESP TX SCH ×2 (07:47→19:19)
[2016-10-10 08:16] LABS: Calcium 9.3 MG/DL (8.5-10.1); Magnesium 2.4 MG/DL (1.8-2.4); Osmolality,Calculated 295.6 MOS/KG (273-304); Phosphorous 3.7 MG/DL (2.5-4.9); Potassium 4.3 MMOL/L (3.5-5.1)
[2016-10-10 08:17] LABS: Lymphocytes 9 % (20-55); Segmented Neutrophils 90 % (50-85); Total Cells Counted 100
[2016-10-10 08:19] LABS: Hypochromasia 1+; Microcytosis 1+
--- NOTE | 2016-10-10 09:44 | Operative Note ---
Date of procedure: 10/10/16 (Abrupt bronchoscopy with bronchial washings) Pre-op diagnosis: Pneumonia retained secretions Post-op diagnosis: same Procedure: After an appropriate time out to be sure we were dealing with Miguel Arreola, the patient was topically anesthetized in the nose and nasopharynx with Xylocaine. He had been given 25 mg of Phenergan intramuscularly on the berry prior to coming to the respiratory suite. 3 L of nasal oxygen was placed in the left naris. The fiberoptic bronchoscope was introduced via the right naris. There were lots of thick secretions in the hypopharynx. His vocal cords were identified and did not seem to function normally in that you could see laryngeal secretions going into the trachea. He had a vigorous cough but it was not clearing the secretions. The bronchoscope was advanced into the trachea. There were retained secretions throughout the tracheobronchial tree. They are worse in both lower lobes. Using saline irrigation to remove the retained secretions. The site of the tracheostomy was noted internally and there is no stenosis at that level. Tracheostomy site is high. The bronchoscope was removed. I did remove some thick nasal pharyngeal secretions prior to totally removing the bronchoscope. Procedure was tolerated well. Based on what I am seeing I think his tracheostomy needs to be replaced for adequate suctioning. His cough does not appear to be adequate. Anesthesia: conscious sedation Surgeon / Physician: Devon Mai Estimated blood loss: none Specimens: other (Bronchial washings for cultures) Condition: stable Disposition: floor Results - Labs CBC & BMP: 10/10/16 07:20 10/10/16 07:20 Discharge Plan - Discharge Medications No Action Acetamin/Codeine 120-12 mg/5Ml [Tylenol/Codeine Liquid] 12.5 ml PEG Q8HR PRN PRN Reason: Pain Acetaminophen Tab [Tylenol Tab] 650 mg PER TUBE Q4H PRN #0 tablet PRN Reason: fever, headache/body aches Albuterol/Ipratropium Neb [Duoneb] 3 ml RESP TX RT Q6H Ciprofloxacin 0.3% Oph Soln [Ciloxan 0.3% Oph Soln] 2 drop RIGHT EYE Q4HR bottle Enoxaparin [Lovenox] 40 mg SUBCUT Q24H syringe Lansoprazole Odt Tab [Prevacid Solutab] 30 mg PO DAILY tablet Metoprolol Tartrate Tab [Lopressor Tab] 50 mg PEG BID tablet Morphine Inj 3 mg IV BID PRN #0 syringe PRN Reason: Pain cefTAZidime [Fortaz] 1,000 mg IV Q12H vial levETIRAcetam TAB [Keppra Tab] 1,500 mg PEG BID tablet Diltiazem Tab [Cardizem Tab] 60 mg PO Q6H PRN #0 tablet PRN Reason: INCREASED HEART RATE Metoclopramide Tab [Reglan Tab] 5 mg PEG Q8H tablet Sodium Hypochlorite 0.25% Irr [Dakins 1/2 Strength 0.25% Soln] 1 applic TOP BID applic - Follow Up or Referral - Forms/Instructions
--- NOTE | 2016-10-10 09:47 | Pulmonology Progress Note ---
Pulmonary - PN: Subj Interval history: This 41-year-old white male was sent over from the skilled nursing after pulling out his tracheostomy. He seems to have done fine with it out. We had considered removing an earlier but still needed it to suction him from time to time. He seems to be breathing better with the tracheostomy out. I would just leave it out. He has one mild area of stranding in his right mid lung that has been called pneumonia. He is on antibiotics for that. Also has urinary tract infection. Could be changed to antibiotics per PEG tube and go back to the skilled nursing tomorrow if chest x-ray looks okay in the morning. 10/09/2016 patient having a little more difficulty with coarse rhonchi. White blood count is up to 16,000. No fever. Oxygen saturations acceptable. Chest x -ray looks a little bit worse. I still favor leaving the tracheostomy out if we can. I will plan bronchoscopy in the morning and evaluate his airways. May yet want to get the trach replaced. If he has problems with hypoxemia that is what I would do next. 10/10/2016 patient has a lower white count. However he is having some diaphoresis. No fever has been recorded. He had fiberoptic bronchoscopy this morning which is dictated separately. He has a strong cough but is not able to expectorate sputum. I think he clearly needs his tracheostomy replaced for tracheal toilet. Exam (Progress Note) - Constitutional Vitals: Period Temp Pulse Resp BP Sys/Plata Pulse Ox Last 24 Hr 98.7 F-99.6 F 107-142 14-29 93-166/60-79 90-98 Exam: He has severe hypoxic brain injury and is not responsive. He does look around with his eyes and move his arms from time to time. He is afebrile. Pupils were reactive. Throat clear. Neck supple. Has a bandage over his tracheostomy site. Chest shows rhonchi bilaterally. Equal breath sounds. Heart normal rate rhythm no murmurs. Abdomen soft no masses. PEG tube in place and looks clean. Extremities no clubbing cyanosis or edema. Results - Labs CBC & BMP: 10/10/16 07:20 10/10/16 07:20 Lab Results: I have reviewed the past 24 hour labs Assessment and Plan (1) Right lower lobe pneumonia Status: Acute Assessment and plan: Probably has a mild infiltrate at the right base. Agree with empiric antibiotics. Does not need bronchoscopy at this point. He has a pretty good cough it appears. 10/08/16 very mild pneumonia at worst. Probably could change to Ceftin per PEG tube and discharge tomorrow back to skilled nursing if chest x-ray is stable or better. 10/09/2016 he has some bibasilar pneumonia. Elevated white count. No fever. Continuing empiric antibiotics. Not ready to go back to skilled nursing as yet. I will plan bronchoscopy in the morning. Make a decision after that as to whether we can leave the trach out long-term. I certainly hope that we can do that. He should be able to breathe better with the trach out then with it and and capped. 10/10/2016 he has actually bibasilar pneumonia. On empiric antibiotics. Based on bronchoscopy findings today we need to replace his tracheostomy to adequately clear his airways. Current Visit: Yes (2) Urinary tract infection Status: Acute Assessment and plan: Abnormal urinalysis suggesting urinary tract infection. Cultures pending. Previously grew Pseudomonas that was sensitive to Zosyn. Agree with Zosyn this time. 10/08/16 I do not see a report on the urine culture. 10/09/2016 only grew some yeast. Cover with Diflucan. Current Visit: No Qualifiers: Urinary tract infection type: catheter-associated UTI Indwelling urinary catheter type: indwelling urethral catheter Encounter type: initial encounter Qualified Code(s): T83.511A - Infection and inflammatory reaction due to indwelling urethral catheter, initial encounter; N39.0 - Urinary tract infection , site not specified (3) Sacral decubitus ulcer, stage IV Status: Chronic Assessment and plan: Dr. Molina has seen him for this. He feels his decubitus ulcers are clean. Just needs wound care while here. 10/09/2016 continuing wound care. 10/10/16 followed by wound care and surgery as needed. Current Visit: No (4) Anoxic brain injury Status: Chronic Assessment and plan: Patient is being fed through PEG tube. He is not responsive. His tracheostomy is now out. If he can control his secretions with cough then he will not need to have the trach replaced. If his x-ray gets worse or is not able to clear secretions, then the tracheostomy could be replaced. 10/08/16 it does appear that he can defend his airway. Has a good cough. Have added cough assist. This could be continued at the nursing center. 10/09/2016 he has a pretty good cough. Remains to be seen how he will do with his pneumonia with his tracheostomy out. 10/10/2016 patient still not responsive. He has a vigorous cough but fails to clear secretions I think he continues to aspirate upper airway secretions. We need to get his tracheostomy replaced. Current Visit: No
[2016-10-10] MEDS ORDERED: LIDOCAINE 1%/EPI INJ 20 ML VIAL MISC INJ ONE (11:20)
[2016-10-10] MEDS: ENOXAPARIN 40 MG/0.4 ML SYRINGE SUBCUT SCH (11:27)
[2016-10-10] MEDS: METOPROLOL TARTRATE 50 MG TABLET PEG SCH ×2 (11:28→20:58)
[2016-10-10] MEDS: levETIRAcetam 500 MG TABLET PEG SCH ×2 (11:28→20:57)
[2016-10-10] MEDS: LANSOPRAZOLE ODT 30 MG TABLET PO SCH (11:28)
[2016-10-10] MEDS: VANCOMYCIN INJ 1,250 MG in SODIUM CHLORIDE 0.9% 250 ML IV SCH ×2 (11:29→23:02)
[2016-10-10] MEDS: SODIUM HYPOCHLORITE 0.25% IRRIG 473 ML BOTTLE TOP SCH ×2 (11:30→21:06)
--- NOTE | 2016-10-10 12:04 | Hospitalist Progress Note ---
<Michael,Lainey - Last Filed: 10/10/16 12:01> Assessment and Plan (1) Right lower lobe pneumonia Status: Acute Assessment and plan: Agree with pulmonary recommendation; continue ABT. Will change to tablets for peg administration. BC NGTD; WBC's 7.9 today. 5/4-Bronch this AM; there is concern that he may not be able to adequately clear his airway; agree with pulmonary recommendation to replace trach. Current Visit: Yes (2) UTI (urinary tract infection) Status: Acute Assessment and plan: Continue ABT as previously ordered. Current Visit: Yes (3) Hypernatremia Status: Acute Assessment and plan: Sodium level at 146; will increase free water flushes to 200 ml every 6 hours. Current Visit: No Hospitalist: Subjective Interval history: Patient seen and examined; no significant overnight events reported. Bronchscopy this AM per Dr. Mai. Exam - Constitutional Vitals: Period Temp Pulse Resp BP Sys/Plata Pulse Ox Last 24 Hr 96.2 F-99.6 F 107-146 14-29 93-166/48-79 90-98 General appearance: normal weight, no acute distress - Head Head exam: Present: normal inspection, normocephalic - Eye Eye exam: Present: EOMI Pupils: Present: JOSE, normal accommodation - ENT ENT exam: Present: normal exam - Neck Neck exam: Present: normal inspection. Absent: lymphadenopathy, meningismus, tenderness, thyromegaly - Respiratory Respiratory exam: Present: decreased breath sounds - Cardiovascular Cardiovascular exam: Present: regular rate and rhythm. Absent: carotid bruit, diastolic murmur, gallop, rubs, systolic murmur, tachycardia - GI/Abdominal GI/Abdominal exam: Present: normal bowel sounds, soft - Extremities Exam Extremities exam: Present: other (flexion contractures noted to upper and lower torso) - Back Exam Back exam: Present: normal inspection - Neurological Exam Neurological exam: Present: alert, altered, motor sensory deficit - Psychiatric Psychiatric exam: Present: normal affect - Skin Skin exam: Present: normal color, warm, dry Results - Labs CBC & BMP: 10/10/16 07:20 10/10/16 07:20 Lab Results: I have reviewed the past 24 hour labs <Noni Amaro - Last Filed: 10/10/16 14:44> Assessment and Plan (1) Urinary tract infection Status: Acute Current Visit: No Qualifiers: Urinary tract infection type: catheter-associated UTI Indwelling urinary catheter type: indwelling urethral catheter Encounter type: initial encounter Qualified Code(s): T83.511A - Infection and inflammatory reaction due to indwelling urethral catheter, initial encounter; N39.0 - Urinary tract infection , site not specified (2) Anoxic brain injury Status: Chronic Current Visit: No (3) Right lower lobe pneumonia Status: Acute Current Visit: Yes Hospitalist: Subjective Interval history: Patient seen independently of [employer]PER Michael, agree with assessment and plan as documented. Plan is for tracheostomy with stomal revision in the OR tomorrow. Exam - Constitutional Vitals: Period Temp Pulse Resp BP Sys/Plata Pulse Ox Last 24 Hr 96.2 F-99.6 F 112-146 14-29 93-166/48-79 90-98 Results - Labs CBC & BMP: 10/10/16 07:20 10/10/16 07:20
--- NOTE | 2016-10-10 13:15 | Consultation ---
Assessment and Plan - Time spent with patient Time spent with patient: Less than 30 minutes (1) Tracheostomy dependence Status: Acute Assessment and plan: I recommend tracheostomy with stomal revision tomorrow in the OR will obtain consent and put this on the schedule. Thank you very much for this consult Current Visit: Yes (2) Dyspnea Status: Acute Current Visit: Yes (3) Anoxic brain injury Status: Chronic Current Visit: No History of Present Illness - Data of Consult Patient: new to practice Consult date: 10/10/16 Requesting Physician: Devon Mai - Consult Narrative Reason for consult: Trach History of present illness: Mr. Arreola is a 41 year old male with anoxic brain injury and the history were requiring trach. He recently had trach removed as were trying to advance his independence and over the last 3 days as the tracheostomy has closed he has had more more difficulty and there is a desire to replace the trach. ENT is evaluated to see if this can be done at bedside or if she will need a formal tracheostomy again. CC: Noni Amaro MD - Home Medications and Allergies Home Medications: Home Medications Medication Instructions Recorded Confirmed Type Acetamin/Codeine 120-12 mg/5Ml 12.5 ml PEG Q8HR PRN 09/03/16 10/06/16 History [Tylenol/Codeine Liquid] Acetaminophen Tab [Tylenol Tab] 650 mg PER TUBE Q4H PRN #0 tablet 09/10/1610/06 Rx Albuterol/Ipratropium Neb [Duoneb] 3 ml RESP TX RT Q6H 09/10/16 10/06/16 Rx Ciprofloxacin 0.3% Oph Soln 2 drop RIGHT EYE Q4HR bottle 09/10/16 10/06/16 Rx [Ciloxan 0.3% Oph Soln] Diltiazem Tab [Cardizem Tab] 60 mg PO Q6H PRN #0 tablet 09/10/16 10/06/16 Rx Enoxaparin [Lovenox] 40 mg SUBCUT Q24H syringe 09/10/16 10/06/16 Rx Lansoprazole Odt Tab [Prevacid 30 mg PO DAILY tablet 09/10/16 10/06/16 Rx Solutab] Metoclopramide Tab [Reglan Tab] 5 mg PEG Q8H tablet 09/10/16 10/06/16 Rx Metoprolol Tartrate Tab [Lopressor 50 mg PEG BID tablet 09/10/16 10/06/16 Rx Tab] Morphine Inj 3 mg IV BID PRN #0 syringe 09/10/16 10/06/16 Rx Sodium Hypochlorite 0.25% Irr 1 applic TOP BID applic 09/10/16 10/06/16 Rx [Dakins 1/2 Strength 0.25% Soln] cefTAZidime [Fortaz] 1,000 mg IV Q12H vial 09/10/16 10/06/16 Rx levETIRAcetam TAB [Keppra Tab] 1,500 mg PEG BID tablet 09/10/16 10/06/16 Rx Allergies/Adverse Reactions: Allergies Allergy/AdvReac Type Severity Reaction Status Date / Time carisoprodol [From Soma] Allergy Unknown/Unable Verified 09/02/16 18:16 to obtain ROS unobtainable: due to mental status Medical,Surgical,& Family Hx - Medical History Cardio: History of: Hypertension Neurology: History of: Neurological Problems (quadraplegia from an anoxic brain injury; significant flexion contractures) Respiratory: History of: Obstructive Sleep Apnea, Respiratory Problems (trach) - Family History Family History: Reports;: Family Hypertension (moms, mom) - Social History Smoking Status: Unknown if ever smoked Frequency of Alcohol Use: Unknown Type of Drug Use: Unknown Exam - Constitutional Vitals: Period Temp Pulse Resp BP Sys/Plata Pulse Ox Last 24 Hr 96.2 F-99.6 F 107-146 14-29 93-166/48-79 90-98 General appearance: normal weight, no acute distress - Head Head exam: Present: normal inspection, normocephalic - ENT ENT exam: Present: normal exam, normal external ear exam, normal oropharynx - Neck Neck exam: Present: other (Midline tracheostomy scar with the stoma completely closed possible pinpoint hole present but not enough to be able to dilate and place a tracheostomy at bedside I recommend we go to the OR tomorrow we can perform a tracheostomy.) - Respiratory Respiratory exam: Present: other (Mild shortness of breath with no current discomfort or respiratory distress.) - GI/Abdominal GI/Abdominal exam: Present: soft - Neurological Exam Neurological exam: Present: other (Arousable but only to his baseline secondary to his history of neurologic injury) - Psychiatric Psychiatric exam: Present: other (At baseline secondary to neurologic injury) - Skin Skin exam: Present: normal color, warm Results - Labs CBC & BMP: 10/10/16 07:20 10/10/16 07:20 Lab Results: I have reviewed the past 24 hour labs
[2016-10-10] MEDS: FLUCONAZOLE INJ 200 MG in PREMIX 1 EACH IV SCH (17:28)
[2016-10-10] MEDS: ACETAMINOPHEN 325 MG TABLET PER TUBE PRN (20:56)
[2016-10-10] MEDS: DILTIAZEM 60 MG TABLET PO PRN (20:57)
[2016-10-11] MEDS: ALBUTEROL/IPRATROPIUM 3 ML NEB RESP TX SCH ×4 (00:11→19:15)
[2016-10-11] MEDS: CIPROFLOXACIN 0.3% OPH SOLN 2.5 ML BOTTLE RIGHT EYE SCH ×6 (03:39→21:31)
[2016-10-11] MEDS: PIPERACILLIN/TAZOBACTAM 3,375 MG in SODIUM CHLORIDE 0.9% 100 ML IV SCH ×3 (03:39→18:18)
[2016-10-11] MEDS: METOCLOPRAMIDE 5 MG TABLET PEG SCH ×3 (06:22→21:31)
[2016-10-11 06:43] LABS: Hematocrit 35.8 VOL% (42.0-52.0); Hemoglobin 10.5 GM/DL (14.0-18.0); Immature Granulocytes % 0.5 %; Immature Granulocytes Absolute 0.05 #; Lymphocytes % 9.5 % (21.2-54.2); Mean Corpuscular HGB Conc 29.3 GM/DL (32-36); Mean Corpuscular Hemoglobin 25 PG (27-34); Mean Corpuscular Volume 86.5 FL (87-102); Mean Platelet Volume 10.2 FL (9.6-12.0); Monocytes # 0.3 10*3/uL (0.11-0.8); Monocytes % 3.3 % (1.7-12.7); Neutrophils % 86.7 % (38.7-73.9); Platelet Count 435 T/CUMM (130-400); Red Blood Count 4.14 MC/CUMM (3.8-5.5); Red Cell Distribution Width 16.1 % (9.3-17.3); White Blood Count 10.3 T/CUMM (4-12)
[2016-10-11 07:20] LABS: Alanine Aminotransferase 39 U/L (16-61); Albumin 2.8 G/DL (3.4-5.0); Alkaline Phosphatase 65 U/L (45-117); Aspartate Amino Transferase 16 U/L (0-37); Bilirubin,Total < 0.39 MG/DL (0.2-1.0); Blood Urea Nitrogen 25 MG/DL (7-18); Calcium 9.1 MG/DL (8.5-10.1); Glucose 142 MG/DL (74-106); Magnesium 2.3 MG/DL (1.8-2.4); Phosphorous 3.2 MG/DL (2.5-4.9); Sodium 150 MMOL/L (136-145)
--- NOTE | 2016-10-11 09:30 | Pulmonology Progress Note ---
Pulmonary - PN: Subj Interval history: This 41-year-old white male [facility] out his [facility]. He seems to have done fine with it out. We had considered removing an earlier but still needed it to suction him from time to time. He seems to be breathing better with the tracheostomy out. I would just leave it out. He has one mild area of stranding in his right mid lung that has been called pneumonia. He is on antibiotics for that. Also has urinary tract infection. Could be changed to antibiotics per PEG tube and go back to the [facility] tomorrow if chest x-ray looks okay in the morning. 10/09/2016 patient having a little more difficulty with coarse rhonchi. White blood count is up to 16,000. No fever. Oxygen saturations acceptable. Chest x -ray looks a little bit worse. I still favor leaving the tracheostomy out if we can. I will plan bronchoscopy in the morning and evaluate his airways. May yet want to get the trach replaced. If he has problems with hypoxemia that is what I would do next. 10/10/2016 patient has a lower white count. However he is having some diaphoresis. No fever has been recorded. He had fiberoptic bronchoscopy this morning which is dictated separately. He has a strong cough but is not able to expectorate sputum. I think he clearly needs his tracheostomy replaced for tracheal toilet. 10/11/2016 patient clearly is better today. His chest x-ray is improved. His lungs sound better. He is tolerating the CoughAssist machine. His mother declined the tracheostomy at this point. I think that is reasonable. We will treat him without the tracheostomy. He may require suctioning from time to time. If his cough is adequate with the CoughAssist machine then we may do fine without it. Would treat him for a few more days with antibiotics. He does have some erythema on his face and chest that I think is probably red man syndrome secondary to vancomycin. We will slow down the administration of the vancomycin and give him some antihistamines. May be able to change off of that once the bronchial wash cultures are out Exam (Progress Note) - Constitutional Vitals: Period Temp Pulse Resp BP Sys/Plata Pulse Ox Last 24 Hr 97 F-101.3 F 109-146 14-29 100-166/48-85 90-99 Exam: He has severe hypoxic brain injury and is not responsive. He does look around with his eyes and move his arms from time to time. He is afebrile. Pupils were reactive. Face is somewhat erythematous throat clear. Neck supple. Has a bandage over his tracheostomy site. Chest shows rhonchi bilaterally. Upper anterior chest is erythematous. equal breath sounds. Heart normal rate rhythm no murmurs. Abdomen soft no masses. PEG tube in place and looks clean. Extremities no clubbing cyanosis or edema. Results - Labs CBC & BMP: 10/11/16 05:59 10/11/16 05:59 Lab Results: I have reviewed the past 24 hour labs - Diagnostic Findings Procedure: Chest x-ray: image reviewed by me (Chest x-ray is a little better. Less bibasilar atelectasis.) Assessment and Plan (1) Right lower lobe pneumonia Status: Acute Assessment and plan: Probably has a mild infiltrate at the right base. Agree with empiric antibiotics. Does not need bronchoscopy at this point. He has a pretty good cough it appears. 10/08/16 very mild pneumonia at worst. Probably could change to Ceftin per PEG tube and discharge [facility] if chest x-ray is stable or better. 10/09/2016 he has some bibasilar pneumonia. Elevated white count. No fever. Continuing empiric antibiotics. Not ready to go back to [facility] as yet. I will plan bronchoscopy in the morning. Make a decision after that as to whether we can leave the trach out long-term. I certainly hope that we can do that. He should be able to breathe better with the trach out then with it and and capped. 10/10/2016 he has actually bibasilar pneumonia. On empiric antibiotics. Based on bronchoscopy findings today we need to replace his tracheostomy to adequately clear his airways. 10/11/2016 we will continue treating antibiotics and leave the tracheostomy out, as is his mother's request. Check cultures this weekend. If we can stop vancomycin we should. He has red man syndrome likely from that. Current Visit: Yes (2) Urinary tract infection Status: Acute Assessment and plan: Abnormal urinalysis suggesting urinary tract infection. Cultures pending. Previously grew Pseudomonas that was sensitive to Zosyn. Agree with Zosyn this time. 10/08/16 I do not see a report on the urine culture. 10/09/2016 only grew some yeast. Cover with Diflucan. Current Visit: No Qualifiers: Urinary tract infection type: catheter-associated UTI Indwelling urinary catheter type: indwelling urethral catheter Encounter type: initial encounter Qualified Code(s): T83.511A - Infection and inflammatory reaction due to indwelling urethral catheter, initial encounter; N39.0 - Urinary tract infection , site not specified (3) Sacral decubitus ulcer, stage IV Status: Chronic Assessment and plan: Dr. Molina has seen him for this. He feels his decubitus ulcers are clean. Just needs wound care while here. 10/09/2016 continuing wound care. 10/10/16 followed by wound care and surgery as needed. 10/11/16 this has been stable. Current Visit: No (4) Anoxic brain injury Status: Chronic Assessment and plan: Patient is being fed through PEG tube. He is not responsive. His tracheostomy is now out. If he can control his secretions with cough then he will not need to have the trach replaced. If his x-ray gets worse or is not able to clear secretions, then the tracheostomy could be replaced. 10/08/16 it does appear that he can defend his airway. Has a good cough. Have added cough assist. This could be continued at the nursing center. 10/09/2016 he has a pretty good cough. Remains to be seen how he will do with his pneumonia with his tracheostomy out. 10/10/2016 patient still not responsive. He has a vigorous cough but fails to clear secretions I think he continues to aspirate upper airway secretions. We need to get his tracheostomy replaced. 10/11/2016 decision has been made not to replace the tracheostomy, as his mother does not want it done. We would use CoughAssist and do nasopharyngeal suctioning as required. Current Visit: No
--- NOTE | 2016-10-11 10:04 | XRay Report ---
XR chest 1V portable Indication: COPD Comparison: 09 Oct 2016 Findings: The heart and mediastinum are normal in size and configuration. The pulmonary vascularity is normal in caliber. Linear densities are present in both lung bases. No other lung infiltrates, effusions, pneumothorax or other abnormality is demonstrated. Impression: No significant changes. PROCEDURE INTERPRETED AT [facility] DEPARTMENT OF RADIOLOGY Final Report Signed by: Dr. Eduardo Stafford
--- NOTE | 2016-10-11 10:04 | Hospitalist Progress Note ---
<Lainey Rodriguez - Last Filed: 10/11/16 10:01> Assessment and Plan (1) Right lower lobe pneumonia Status: Acute Assessment and plan: Agree with pulmonary recommendation; continue ABT. Will change to tablets for peg administration. BC NGTD; WBC's 7.9 today. 5/4-Bronch this AM; there is concern that he may not be able to adequately clear his airway; agree with pulmonary recommendation to replace trach. 5/5-Family refused tracheostomy; no respirataory issues noted. Agree with pulmonary; will discontinue Vancomycin and use cough assist as needed. Current Visit: Yes (2) UTI (urinary tract infection) Status: Acute Assessment and plan: Continue ABT as previously ordered. 5- Urine culture positive for anderson tropicalis;will start Diflucan 200 mg QD. 5/5-Continue Diflucan as ordered. Current Visit: Yes (3) Hypernatremia Status: Acute Assessment and plan: 5/4-Sodium level at 146; will increase free water flushes to 200 ml every 6 hours. 5/5-Sodium increased to 150 today; will start Dextrose 5% at 75 ml hr. Will reassess in AM. Current Visit: No Hospitalist: Subjective Interval history: Patient seen and examined. No significant overnight events. Family refused tracheostomy placement at this time. No reported respiratory issues. Exam - Constitutional Vitals: Period Temp Pulse Resp BP Sys/Plata Pulse Ox Last 24 Hr 97 F-101.3 F 109-134 18-22 121-136/68-85 90-99 General appearance: normal weight, mild distress - Head Head exam: Present: normal inspection, normocephalic, atraumatic - Eye Eye exam: Present: EOMI. Absent: conjunctival injection Pupils: Present: JOSE, normal accommodation - ENT ENT exam: Present: normal exam, normal external ear exam, normal oropharynx, other (trach stoma; covered with dressing) - Neck Neck exam: Present: normal inspection. Absent: lymphadenopathy, meningismus, tenderness, thyromegaly - Respiratory Respiratory exam: Present: decreased breath sounds. Absent: rales, rhonchi, stridor, wheezes - Cardiovascular Cardiovascular exam: Present: regular rate and rhythm, tachycardia. Absent: carotid bruit, diastolic murmur, gallop, JVD, rubs, systolic murmur - GI/Abdominal GI/Abdominal exam: Present: normal bowel sounds, soft (PEG tube noted) - Extremities Exam Extremities exam: Present: other (flexion contractures) - Neurological Exam Neurological exam: Present: altered - Psychiatric Psychiatric exam: Present: normal affect - Skin Skin exam: Present: normal color, warm, dry Results - Labs CBC & BMP: 10/11/16 05:59 10/11/16 05:59 Lab Results: I have reviewed the past 24 hour labs <Noni Amaro - Last Filed: 10/11/16 10:57> Assessment and Plan (1) Urinary tract infection Status: Acute Current Visit: No Qualifiers: Urinary tract infection type: catheter-associated UTI Indwelling urinary catheter type: indwelling urethral catheter Encounter type: initial encounter Qualified Code(s): T83.511A - Infection and inflammatory reaction due to indwelling urethral catheter, initial encounter; N39.0 - Urinary tract infection , site not specified (2) Anoxic brain injury Status: Chronic Current Visit: No (3) Right lower lobe pneumonia Status: Acute Current Visit: Yes Hospitalist: Subjective Interval history: Patient seen and examined independently of SUPERVISOR GROWER Michael, agree with assessment and plan as documented. Patient's mother refused tracheostomy placement. Noted facial redness with vancomycin, agree with slowing infusion. Pulmonary managing. Exam - Constitutional Vitals: Period Temp Pulse Resp BP Sys/Plata Pulse Ox Last 24 Hr 97 F-101.3 F 109-134 18-22 121-136/68-85 90-99 Results - Labs CBC & BMP: 10/11/16 05:59 10/11/16 05:59
[2016-10-11] MEDS: methylPREDNISolone SOD SUC 40 MG/1 ML VIAL IV SCH ×3 (10:16→23:18)
[2016-10-11] MEDS: METOPROLOL TARTRATE 50 MG TABLET PEG SCH ×2 (10:16→20:07)
[2016-10-11] MEDS: LANSOPRAZOLE ODT 30 MG TABLET PO SCH (10:16)
[2016-10-11] MEDS: ENOXAPARIN 40 MG/0.4 ML SYRINGE SUBCUT SCH (10:17)
[2016-10-11] MEDS: SODIUM HYPOCHLORITE 0.25% IRRIG 473 ML BOTTLE TOP SCH ×2 (10:23→20:07)
--- NOTE | 2016-10-11 10:36 | Progress Note ---
Assessment and Plan (1) Tracheostomy dependence Status: Acute Assessment and plan: I recommend tracheostomy with stomal revision tomorrow in the OR will obtain consent and put this on the schedule. Thank you very much for this consult 10/11/2016 His mother does not desire to have a tracheostomy placed we will cancel surgery and I will sign off on this case but I remain available if there is any questions or concerns. Current Visit: Yes (2) Dyspnea Status: Acute Current Visit: Yes (3) Anoxic brain injury Status: Chronic Current Visit: No Family Medicine PN Sub Interval history: Patient's mother does not desire to have a repeat tracheostomy performed we will cancel this case at this time and if we need to readdress this issue in the future we will I notified this to Dr. Mai. Exam (Progress Note) - Constitutional Vitals: Period Temp Pulse Resp BP Sys/Plata Pulse Ox Last 24 Hr 97 F-101.3 F 109-134 18-22 121-136/68-85 90-99 General appearance: normal weight, mild distress (I expect his respiratory distress will worsen as the tracheostomy completely closes but the mother is reportedly aware of this.) - Head Head exam: Present: normal inspection, normocephalic - ENT ENT exam: Present: normal exam, normal external ear exam, normal oropharynx - Neck Neck exam: Present: other (Midline tracheostomy completely closed with possible pinhole still present) - Respiratory Respiratory exam: Present: accessory muscle use, other (Mild difficulty with breathing) - GI/Abdominal GI/Abdominal exam: Present: soft - Neurological Exam Neurological exam: Present: other (At baseline per patient nurses) - Psychiatric Psychiatric exam: Present: other (At baseline per patient's nurses) - Skin Skin exam: Present: normal color, warm Results - Labs CBC & BMP: 10/11/16 05:59 10/11/16 05:59 Lab Results: I have reviewed the past 24 hour labs
[2016-10-11] MEDS: levETIRAcetam 500 MG TABLET PEG SCH (10:52)
[2016-10-11] MEDS: VANCOMYCIN INJ 1,250 MG in SODIUM CHLORIDE 0.9% 250 ML IV SCH (10:52)
[2016-10-11] MEDS: diphenhydrAMINE 25 MG/10 ML UDCUP PO SCH ×2 (11:11→18:18)
[2016-10-11] MEDS: LACTOBACILLUS RHAMNOSUS GG CAPSULE PO SCH ×2 (11:11→20:06)
[2016-10-11] MEDS: DEXTROSE 5% 1,000 ML IV SCH (15:11)
[2016-10-11] MEDS: FLUCONAZOLE INJ 200 MG in PREMIX 1 EACH IV SCH (16:07)
[2016-10-12] MEDS: ALBUTEROL/IPRATROPIUM 3 ML NEB RESP TX SCH ×4 (00:20→19:25)
[2016-10-12] MEDS: PIPERACILLIN/TAZOBACTAM 3,375 MG in SODIUM CHLORIDE 0.9% 100 ML IV SCH ×3 (02:42→18:11)
[2016-10-12] MEDS: diphenhydrAMINE 25 MG/10 ML UDCUP PO SCH ×3 (02:43→18:10)
[2016-10-12] MEDS: CIPROFLOXACIN 0.3% OPH SOLN 2.5 ML BOTTLE RIGHT EYE SCH ×6 (02:43→21:20)
[2016-10-12] MEDS: METOCLOPRAMIDE 5 MG TABLET PEG SCH ×3 (05:46→21:02)
--- NOTE | 2016-10-12 08:59 | Hospitalist Progress Note ---
<Camille Rodriguezda - Last Filed: 10/12/16 09:02> Assessment and Plan (1) Right lower lobe pneumonia Status: Acute Assessment and plan: Agree with pulmonary recommendation; continue ABT. Will change to tablets for peg administration. BC NGTD; WBC's 7.9 today. 5/4-Bronch this AM; there is concern that he may not be able to adequately clear his airway; agree with pulmonary recommendation to replace trach. 5/5-Family refused tracheostomy; no respirataory issues noted. Agree with pulmonary; will discontinue Vancomycin and use cough assist as needed. 5/6-Continue Zosyn as ordered. Current Visit: Yes (2) UTI (urinary tract infection) Status: Acute Assessment and plan: Continue ABT as previously ordered. 5/- Urine culture positive for anderson tropicalis;will start Diflucan 200 mg QD. 5/5-Continue Diflucan as ordered. 5/6-Continue Diflucan as ordered. Current Visit: Yes (3) Hypernatremia Status: Acute Assessment and plan: 5-Sodium level at 146; will increase free water flushes to 200 ml every 6 hours. 5/5-Sodium increased to 150 today; will start Dextrose 5% at 75 ml hr. Will reassess in AM. 5/6-Continue free water flushes and IV 5% Dextrose at 75 ml/hr. Current Visit: No Hospitalist: Subjective Interval history: Patient seen and examined. No significant overnight events. Exam - Constitutional Vitals: Period Temp Pulse Resp BP Sys/Plata Pulse Ox Last 24 Hr 97.5 F-100.6 F 98-114 18-20 127-134/60-82 91-100 General appearance: normal weight, no acute distress - Head Head exam: Present: normal inspection, normocephalic, atraumatic - Eye Eye exam: Present: EOMI. Absent: conjunctival injection, nystagmus Pupils: Present: JOSE, normal accommodation - ENT ENT exam: Present: normal exam, normal external ear exam, normal oropharynx, other (Tracheostomy site covered with dressing) - Neck Neck exam: Present: normal inspection - Respiratory Respiratory exam: Present: decreased breath sounds - Cardiovascular Cardiovascular exam: Present: regular rate and rhythm. Absent: carotid bruit, diastolic murmur, gallop, JVD, rubs, systolic murmur - GI/Abdominal GI/Abdominal exam: Present: normal bowel sounds, soft, other (PEG intact) - Extremities Exam Extremities exam: Present: other (Flexion contractures noted to upper and lower torso) - Back Exam Back exam: Present: normal inspection - Neurological Exam Neurological exam: Present: altered - Psychiatric Psychiatric exam: Present: normal affect - Skin Skin exam: Present: normal color, warm, dry Results - Labs CBC & BMP: 10/11/16 05:59 10/11/16 05:59 Lab Results: I have reviewed the past 24 hour labs <Noni Amaro - Last Filed: 10/12/16 11:53> Assessment and Plan (1) Urinary tract infection Status: Acute Current Visit: No Qualifiers: Urinary tract infection type: catheter-associated UTI Indwelling urinary catheter type: indwelling urethral catheter Encounter type: initial encounter Qualified Code(s): T83.511A - Infection and inflammatory reaction due to indwelling urethral catheter, initial encounter; N39.0 - Urinary tract infection , site not specified (2) Anoxic brain injury Status: Chronic Current Visit: No (3) Right lower lobe pneumonia Status: Acute Current Visit: Yes Hospitalist: Subjective Interval history: Patient seen and examined independently of SYSTEM DEVELOPMENT MANAGER Michael, agree with assessment and plan as documented. Patient appears red and flushed on exam today, vancomycin has been discontinued. Pulmonary assisting. Bronchial washings growing gram negative rods. Exam - Constitutional Vitals: Period Temp Pulse Resp BP Sys/Plata Pulse Ox Last 24 Hr 97.5 F-100.6 F 102-114 18-20 127-140/60-84 91-100 Results - Labs CBC & BMP: 10/11/16 05:59 10/11/16 05:59
[2016-10-12] MEDS: LANSOPRAZOLE ODT 30 MG TABLET PO SCH (09:16)
[2016-10-12] MEDS: METOPROLOL TARTRATE 50 MG TABLET PEG SCH ×2 (09:16→20:52)
[2016-10-12] MEDS: methylPREDNISolone SOD SUC 40 MG/1 ML VIAL IV SCH ×3 (09:16→23:19)
[2016-10-12] MEDS: LACTOBACILLUS RHAMNOSUS GG CAPSULE PO SCH ×2 (09:16→20:51)
[2016-10-12] MEDS: ENOXAPARIN 40 MG/0.4 ML SYRINGE SUBCUT SCH (09:16)
--- NOTE | 2016-10-12 09:27 | Pulmonology Progress Note ---
Pulmonary - PN: Subj Interval history: The patient is a 41-year-old man that [facility] and is quite debilitated after anoxic brain injury. He previously had a tracheostomy tube and he pulled this out. His family does not want the tube replaced but he does seem to be breathing okay at present. The patient did have a bronchoscope and is growing gram-negative rods out of washings. He does not seem to have any respiratory distress at present. The patient is lying in bed and is completely obtunded. Exam (Progress Note) - Constitutional Vitals: Period Temp Pulse Resp BP Sys/Plata Pulse Ox Last 24 Hr 97.5 F-100.6 F 98-114 18-20 127-134/60-82 91-100 General appearance: normal weight, no acute distress (The patient is comfortable lying in bed.) - Head Head exam: Present: normal inspection - Eye Eye exam: Present: other (The patient does look around but does not follow commands). Absent: conjunctival injection, scleral icterus Pupils: Present: JOSE - ENT ENT exam: Present: other (He does have a pati complexion) - Neck Neck exam: Present: other (The tracheostomy site is closing). Absent: lymphadenopathy, thyromegaly - Respiratory Respiratory exam: Present: rhonchi. Absent: accessory muscle use, rales, wheezes - Cardiovascular Cardiovascular exam: Present: regular rate and rhythm. Absent: gallop, systolic murmur - GI/Abdominal GI/Abdominal exam: Present: normal bowel sounds, soft, other (He has a PEG tube in place). Absent: distended, organomegaly, tenderness - Extremities Exam Extremities exam: Absent: calf tenderness, edema - Neurological Exam Neurological exam: Present: altered (He is not able to follow commands), other ( He does have some rigidity of his extremities) - Skin Skin exam: Present: other (He has some decubitus ulcers on the sacrum and ankles ) Results - Labs CBC & BMP: 10/11/16 05:59 10/11/16 05:59 - Diagnostic Findings Procedure: Chest x-ray: image reviewed by me, report reviewed by me (Chest x- ray does show some minimal atelectasis in the bases.) Assessment and Plan (1) Anoxic brain injury Status: Chronic Assessment and plan: Patient apparently has significant anoxic brain injury and is bedridden and very debilitated. Current Visit: No (2) Sacral decubitus ulcer, stage IV Status: Chronic Assessment and plan: The wounds are being followed by surgery. Current Visit: No (3) UTI (urinary tract infection) Status: Acute Assessment and plan: Patient has yeast growing out on culture. Current Visit: Yes (4) Right lower lobe pneumonia Status: Acute Assessment and plan: Patient may have minimal pneumonia. His breathing is relatively stable. He has gram-negative rods on washings. His antibiotics have been adjusted. Current Visit: Yes
[2016-10-12] MEDS: SODIUM HYPOCHLORITE 0.25% IRRIG 473 ML BOTTLE TOP SCH ×2 (11:33→21:56)
[2016-10-12] MEDS: levETIRAcetam LIQUID 100 MG/ML 30 ML/BOTTLE PEG SCH ×2 (11:33→21:17)
[2016-10-12] MEDS: FLUCONAZOLE INJ 200 MG in PREMIX 1 EACH IV SCH (15:44)
[2016-10-12] MEDS: DEXTROSE 5% 1,000 ML IV SCH (23:18)
[2016-10-13] MEDS: ALBUTEROL/IPRATROPIUM 3 ML NEB RESP TX SCH ×4 (00:56→19:18)
[2016-10-13] MEDS: diphenhydrAMINE 25 MG/10 ML UDCUP PO SCH ×3 (01:53→18:08)
[2016-10-13] MEDS: CIPROFLOXACIN 0.3% OPH SOLN 2.5 ML BOTTLE RIGHT EYE SCH ×6 (01:53→23:13)
[2016-10-13] MEDS: PIPERACILLIN/TAZOBACTAM 3,375 MG in SODIUM CHLORIDE 0.9% 100 ML IV SCH ×3 (01:53→18:19)
[2016-10-13] MEDS: METOCLOPRAMIDE 5 MG TABLET PEG SCH ×2 (05:57→16:25)
[2016-10-13 07:38] LABS: Albumin 2.8 G/DL (3.4-5.0); Bilirubin,Total 0.7 MG/DL (0.2-1.0); Calcium 8.8 MG/DL (8.5-10.1); Magnesium 2.3 MG/DL (1.8-2.4); Phosphorous 2.7 MG/DL (2.5-4.9); Potassium 4.2 MMOL/L (3.5-5.1); Total Protein 6.8 G/DL (6.4-8.3)
[2016-10-13] MEDS: METOPROLOL TARTRATE 50 MG TABLET PEG SCH ×2 (08:25→23:10)
[2016-10-13] MEDS: LANSOPRAZOLE ODT 30 MG TABLET PO SCH (08:25)
[2016-10-13] MEDS: ENOXAPARIN 40 MG/0.4 ML SYRINGE SUBCUT SCH (08:26)
[2016-10-13] MEDS: SODIUM HYPOCHLORITE 0.25% IRRIG 473 ML BOTTLE TOP SCH ×2 (08:26→23:11)
[2016-10-13] MEDS: methylPREDNISolone SOD SUC 40 MG/1 ML VIAL IV SCH ×2 (08:26→16:25)
[2016-10-13] MEDS: LACTOBACILLUS RHAMNOSUS GG CAPSULE PO SCH ×2 (08:26→23:10)
[2016-10-13] MEDS: levETIRAcetam LIQUID 100 MG/ML 30 ML/BOTTLE PEG SCH ×2 (08:27→23:11)
--- NOTE | 2016-10-13 09:11 | Hospitalist Progress Note ---
<Camille Rodriguezda - Last Filed: 10/13/16 09:08> Assessment and Plan (1) Right lower lobe pneumonia Status: Acute Assessment and plan: Agree with pulmonary recommendation; continue ABT. Will change to tablets for peg administration. BC NGTD; WBC's 7.9 today. 5/4-Bronch this AM; there is concern that he may not be able to adequately clear his airway; agree with pulmonary recommendation to replace trach. 5/5-Family refused tracheostomy; no respirataory issues noted. Agree with pulmonary; will discontinue Vancomycin and use cough assist as needed. 5/6-Continue Zosyn as ordered. 5/7-Bronchial washing significant for psuedomonas; continue Zosyn as ordered. Current Visit: Yes (2) UTI (urinary tract infection) Status: Acute Assessment and plan: Continue ABT as previously ordered. 5/- Urine culture positive for anderson tropicalis;will start Diflucan 200 mg QD. 5/5-Continue Diflucan as ordered. 5/6-Continue Diflucan as ordered. 5/7-Continue Diflucan as ordered. Current Visit: Yes (3) Hypernatremia Status: Acute Assessment and plan: 5-Sodium level at 146; will increase free water flushes to 200 ml every 6 hours. 5/5-Sodium increased to 150 today; will start Dextrose 5% at 75 ml hr. Will reassess in AM. 5/6-Continue free water flushes and IV 5% Dextrose at 75 ml/hr. 5/7-Sodium has normalized; today at 143. Will change to KVO. Current Visit: No Hospitalist: Subjective Interval history: Patient seen and examined; no significant overnight events. C&S of bronchial wash reports pseudomonas. Sodium normalized today at 143. Exam - Constitutional Vitals: Period Temp Pulse Resp BP Sys/Plata Pulse Ox Last 24 Hr 97.1 F-99.0 F 89-103 16-22 132-151/74-89 90-99 General appearance: normal weight, no acute distress - Head Head exam: Present: normal inspection, normocephalic, atraumatic - Eye Eye exam: Present: EOMI, conjunctival injection Pupils: Present: JOSE, normal accommodation - ENT ENT exam: Present: normal exam, normal external ear exam, normal oropharynx, other (trach stoma with scab formation) - Neck Neck exam: Present: normal inspection. Absent: lymphadenopathy, meningismus, tenderness, thyromegaly - Respiratory Respiratory exam: Present: clear to auscultation bilaterally. Absent: rales, rhonchi, stridor, wheezes - Cardiovascular Cardiovascular exam: Present: regular rate and rhythm. Absent: carotid bruit, diastolic murmur, gallop, rubs, systolic murmur - GI/Abdominal GI/Abdominal exam: Present: soft, other (PEG tube). Absent: normal bowel sounds - Extremities Exam Extremities exam: Present: other (flexion contractures to upper and lower extremeties) - Back Exam Back exam: Present: normal inspection - Neurological Exam Neurological exam: Present: altered - Psychiatric Psychiatric exam: Present: flat affect - Skin Skin exam: Present: normal color, warm, dry Results - Labs CBC & BMP: 10/11/16 05:59 10/13/16 06:57 Lab Results: I have reviewed the past 24 hour labs <Noni Amaro - Last Filed: 10/13/16 11:39> Assessment and Plan (1) Urinary tract infection Status: Acute Current Visit: No Qualifiers: Urinary tract infection type: catheter-associated UTI Indwelling urinary catheter type: indwelling urethral catheter Encounter type: initial encounter Qualified Code(s): T83.511A - Infection and inflammatory reaction due to indwelling urethral catheter, initial encounter; N39.0 - Urinary tract infection , site not specified (2) Anoxic brain injury Status: Chronic Current Visit: No (3) Right lower lobe pneumonia Status: Acute Current Visit: Yes Qualifiers: Pneumonia type: due to Pseudomonas Qualified Code(s): J15.1 - Pneumonia due to Pseudomonas Hospitalist: Subjective Interval history: Patient seen and examined independently of DOV Rodriguez. Sodium within normal limits now. Bronchial washings growing Pseudomonas Exam - Constitutional Vitals: Period Temp Pulse Resp BP Sys/Plata Pulse Ox Last 24 Hr 97.1 F-99.0 F 89-103 16-22 132-151/74-89 90-99 Results - Labs CBC & BMP: 10/13/16 09:34 10/13/16 06:57
--- NOTE | 2016-10-13 09:21 | Pulmonology Progress Note ---
Pulmonary - PN: Subj Interval history: The patient is a 41-year-old man that is in the care home and is quite debilitated after anoxic brain injury. He previously had a tracheostomy tube and he pulled this out. His family does not want the tube replaced but he does seem to be breathing okay at present. The patient did have a bronchoscope and is growing Pseudomonas out of the washings. The patient looks about the same and is breathing comfortably. He does not seem to be having any respiratory distress at present. Exam (Progress Note) - Constitutional Vitals: Period Temp Pulse Resp BP Sys/Plata Pulse Ox Last 24 Hr 97.1 F-99.0 F 89-103 16-22 132-151/74-89 90-99 Exam: General appearance: normal weight, no acute distress (The patient is comfortable lying in bed. He is basically bedridden and unable to follow commands) - Head Head exam: Present: normal inspection - Eye Eye exam: Present: other (The patient does look around but does not follow commands). Absent: conjunctival injection, scleral icterus Pupils: Present: JOSE - ENT ENT exam: Present: other (He does have a pati complexion) - Neck Neck exam: Present: other (The tracheostomy site is closing). Absent: lymphadenopathy, thyromegaly - Respiratory Respiratory exam: Present: He has fair breath sounds bilaterally with some minimal rhonchi. - Cardiovascular Cardiovascular exam: Present: regular rate and rhythm. Absent: gallop, systolic murmur - GI/Abdominal GI/Abdominal exam: Present: normal bowel sounds, soft, other (He has a PEG tube in place). Absent: distended, organomegaly, tenderness - Extremities Exam Extremities exam: Absent: calf tenderness, edema - Neurological Exam Neurological exam: Present: altered (He is not able to follow commands), other ( He does have some rigidity of his extremities) - Skin Skin exam: Present: other (He has some decubitus ulcers on the sacrum and ankles ) Results - Labs CBC & BMP: 10/11/16 05:59 10/13/16 06:57 Assessment and Plan (1) Anoxic brain injury Status: Chronic Assessment and plan: Patient apparently has significant anoxic brain injury and is bedridden and very debilitated. Current Visit: No (2) Sacral decubitus ulcer, stage IV Status: Chronic Assessment and plan: The wounds are being followed by surgery. Current Visit: No (3) UTI (urinary tract infection) Status: Acute Assessment and plan: Patient has yeast growing out on culture. Current Visit: Yes (4) Right lower lobe pneumonia Status: Acute Assessment and plan: Patient has Pseudomonas growing out of his washings. Will adjust his antibiotics. He seems to be breathing okay. Current Visit: Yes Qualifiers: Pneumonia type: due to Pseudomonas Qualified Code(s): J15.1 - Pneumonia due to Pseudomonas
[2016-10-13 09:43] LABS: Basophils % 0.1 % (0.0-0.8); Hemoglobin 12.1 GM/DL (14.0-18.0); Immature Granulocytes % 0.6 %; Lymphocytes # 1.6 10*3/uL (1.4-4.0); Lymphocytes % 9.8 % (21.2-54.2); Mean Corpuscular HGB Conc 30.3 GM/DL (32-36); Mean Corpuscular Hemoglobin 25 PG (27-34); Mean Corpuscular Volume 82.5 FL (87-102); Mean Platelet Volume 10.3 FL (9.6-12.0); Monocytes # 0.6 10*3/uL (0.11-0.8); Monocytes % 3.9 % (1.7-12.7); Neutrophils # 13.9 10*3/uL (1.4-7.4); Neutrophils % 85.6 % (38.7-73.9); Platelet Count 338 T/CUMM (130-400); Red Blood Count 4.85 MC/CUMM (3.8-5.5); Red Cell Distribution Width 15.4 % (9.3-17.3); White Blood Count 16.2 T/CUMM (4-12)
[2016-10-13] MEDS: SODIUM CHLORIDE 0.9% IV SCH (16:25)
[2016-10-13] MEDS: TOBRAMYCIN IV SCH (16:25)
[2016-10-13] MEDS: FLUCONAZOLE INJ 200 MG in PREMIX 1 EACH IV SCH (16:30)
[2016-10-13] MEDS: DEXTROSE 5% 1,000 ML IV SCH ×2 (17:24→23:09)
[2016-10-13] MEDS: METOCLOPRAMIDE 10 MG/10 ML UDCUP PEG SCH (23:09)
[2016-10-13] MEDS: DESITIN 4OZ/NYSTATIN 15 GRAM MIXTURE PASTE TOP SCH (23:13)
[2016-10-14] MEDS: ALBUTEROL/IPRATROPIUM 3 ML NEB RESP TX SCH ×4 (00:16→18:57)
[2016-10-14] MEDS: methylPREDNISolone SOD SUC 40 MG/1 ML VIAL IV SCH ×2 (00:53→12:08)
[2016-10-14] MEDS: diphenhydrAMINE 25 MG/10 ML UDCUP PO SCH ×3 (03:15→17:25)
[2016-10-14] MEDS: PIPERACILLIN/TAZOBACTAM 3,375 MG in SODIUM CHLORIDE 0.9% 100 ML IV SCH ×2 (03:15→09:33)
[2016-10-14] MEDS: CIPROFLOXACIN 0.3% OPH SOLN 2.5 ML BOTTLE RIGHT EYE SCH ×6 (03:15→21:01)
[2016-10-14] MEDS: METOCLOPRAMIDE 10 MG/10 ML UDCUP PEG SCH ×3 (05:14→20:43)
--- NOTE | 2016-10-14 08:31 | Pulmonology Progress Note ---
Pulmonary - PN: Subj Interval history: This 41-year-old white male was sent over from the [facility] after pulling out his tracheostomy. He seems to have done fine with it out. We had considered removing an earlier but still needed it to suction him from time to time. He seems to be breathing better with the tracheostomy out. I would just leave it out. He has one mild area of stranding in his right mid lung that has been called pneumonia. He is on antibiotics for that. Also has urinary tract infection. Could be changed to antibiotics per PEG tube and go back to the [facility] tomorrow if chest x-ray looks okay in the morning. 10/09/2016 patient having a little more difficulty with coarse rhonchi. White blood count is up to 16,000. No fever. Oxygen saturations acceptable. Chest x -ray looks a little bit worse. I still favor leaving the tracheostomy out if we can. I will plan bronchoscopy in the morning and evaluate his airways. May yet want to get the trach replaced. If he has problems with hypoxemia that is what I would do next. 10/10/2016 patient has a lower white count. However he is having some diaphoresis. No fever has been recorded. He had fiberoptic bronchoscopy this morning which is dictated separately. He has a strong cough but is not able to expectorate sputum. I think he clearly needs his tracheostomy replaced for tracheal toilet. 10/11/2016 patient clearly is better today. His chest x-ray is improved. His lungs sound better. He is tolerating the CoughAssist machine. His mother declined the tracheostomy at this point. I think that is reasonable. We will treat him without the tracheostomy. He may require suctioning from time to time. If his cough is adequate with the CoughAssist machine then we may do fine without it. Would treat him for a few more days with antibiotics. He does have some erythema on his face and chest that I think is probably red man syndrome secondary to vancomycin. We will slow down the administration of the vancomycin and give him some antihistamines. May be able to change off of that once the bronchial wash cultures are out. 10/14/2016 he seems to be doing well with the tracheostomy out now. He grew Pseudomonas from bronchial washings that was only sensitive to aminoglycosides. Presently on combination of tobramycin and Zosyn. Needs at least 5 days of tobramycin which would put us through with that. Would look for return to [facility] Friday if stable and if possible. Exam (Progress Note) - Constitutional Vitals: Period Temp Pulse Resp BP Sys/Plata Pulse Ox Last 24 Hr 96.1 F-98.3 F 72-111 16-21 113-143/65-83 91-100 Exam: He has severe hypoxic brain injury and is not responsive. He does look around with his eyes and move his arms from time to time. He is afebrile. Pupils were reactive. Face no longer red, throat clear. Neck supple. Tracheostomy site almost completely sealed. Chest shows rhonchi bilaterally, equal breath sounds. Heart normal rate rhythm no murmurs. Abdomen soft no masses. PEG tube in place and looks clean. Extremities no clubbing cyanosis or edema. Results - Labs CBC & BMP: 10/13/16 09:34 10/13/16 06:57 Lab Results: I have reviewed the past 24 hour labs - Diagnostic Findings Procedure: Chest x-ray: pending Assessment and Plan (1) Right lower lobe pneumonia Status: Acute Assessment and plan: Probably has a mild infiltrate at the right base. Agree with empiric antibiotics. Does not need bronchoscopy at this point. He has a pretty good cough it appears. 10/08/16 very mild pneumonia at worst. Probably could change to Ceftin per PEG tube and discharge tomorrow back to [facility] if chest x-ray is stable or better. 10/09/2016 he has some bibasilar pneumonia. Elevated white count. No fever. Continuing empiric antibiotics. Not ready to go back to [facility] as yet. I will plan bronchoscopy in the morning. Make a decision after that as to whether we can leave the trach out long-term. I certainly hope that we can do that. He should be able to breathe better with the trach out then with it and and capped. 10/10/2016 he has actually bibasilar pneumonia. On empiric antibiotics. Based on bronchoscopy findings today we need to replace his tracheostomy to adequately clear his airways. 10/11/2016 we will continue treating antibiotics and leave the tracheostomy out, as is his mother's request. Check cultures this weekend. If we can stop vancomycin we should. He has red man syndrome likely from that. 10/14/2016 clinically he is much improved with the pneumonia. Needs about 5 more days of tobramycin as it was just started yesterday. The Pseudomonas was only sensitive to aminoglycosides. Current Visit: Yes Qualifiers: Pneumonia type: due to Pseudomonas Qualified Code(s): J15.1 - Pneumonia due to Pseudomonas (2) Urinary tract infection Status: Acute Assessment and plan: Abnormal urinalysis suggesting urinary tract infection. Cultures pending. Previously grew Pseudomonas that was sensitive to Zosyn. Agree with Zosyn this time. 10/08/16 I do not see a report on the urine culture. 10/09/2016 only grew some yeast. Cover with Diflucan. Current Visit: No Qualifiers: Urinary tract infection type: catheter-associated UTI Indwelling urinary catheter type: indwelling urethral catheter Encounter type: initial encounter Qualified Code(s): T83.511A - Infection and inflammatory reaction due to indwelling urethral catheter, initial encounter; N39.0 - Urinary tract infection , site not specified (3) Sacral decubitus ulcer, stage IV Status: Chronic Assessment and plan: Dr. Molina has seen him for this. He feels his decubitus ulcers are clean. Just needs wound care while here. 10/09/2016 continuing wound care. 10/10/16 followed by wound care and surgery as needed. 10/11/16 this has been stable. 10/14/2016 continues to be followed by wound care. Current Visit: No (4) Anoxic brain injury Status: Chronic Assessment and plan: Patient is being fed through PEG tube. He is not responsive. His tracheostomy is now out. If he can control his secretions with cough then he will not need to have the trach replaced. If his x-ray gets worse or is not able to clear secretions, then the tracheostomy could be replaced. 10/08/16 it does appear that he can defend his airway. Has a good cough. Have added cough assist. This could be continued at the nursing center. 10/09/2016 he has a pretty good cough. Remains to be seen how he will do with his pneumonia with his tracheostomy out. 10/10/2016 patient still not responsive. He has a vigorous cough but fails to clear secretions I think he continues to aspirate upper airway secretions. We need to get his tracheostomy replaced. 10/11/2016 decision has been made not to replace the tracheostomy, as his mother does not want it done. We would use CoughAssist and do nasopharyngeal suctioning as required. 10/14/2016 no change in mental status. Still looks around but does not make contact. Current Visit: No
[2016-10-14 08:45] LABS: Osmolality,Calculated 287.1 MOS/KG (273-304); Potassium 3.7 MMOL/L (3.5-5.1); Prealbumin 34.2 MG/DL (20-40)
[2016-10-14] MEDS ORDERED: methylPREDNISolone SOD SUC 40 MG/1 ML VIAL IV SCH (09:00)
[2016-10-14] MEDS: DESITIN 4OZ/NYSTATIN 15 GRAM MIXTURE PASTE TOP SCH ×2 (09:32→20:46)
[2016-10-14] MEDS: LANSOPRAZOLE ODT 30 MG TABLET PO SCH (09:32)
[2016-10-14] MEDS: LACTOBACILLUS RHAMNOSUS GG CAPSULE PO SCH ×2 (09:32→20:43)
[2016-10-14] MEDS: METOPROLOL TARTRATE 50 MG TABLET PEG SCH ×2 (09:32→20:43)
[2016-10-14] MEDS: levETIRAcetam LIQUID 100 MG/ML 30 ML/BOTTLE PEG SCH ×2 (09:32→20:44)
[2016-10-14 09:38] LABS: Basophils % 0.1 % (0.0-0.8); Hematocrit 36.3 VOL% (42.0-52.0); Hemoglobin 10.9 GM/DL (14.0-18.0); Immature Granulocytes % 1.5 %; Immature Granulocytes Absolute 0.21 #; Lymphocytes # 0.8 10*3/uL (1.4-4.0); Lymphocytes % 5.5 % (21.2-54.2); Mean Corpuscular Hemoglobin 25 PG (27-34); Mean Corpuscular Volume 82.1 FL (87-102); Mean Platelet Volume 10.9 FL (9.6-12.0); Monocytes # 0.3 10*3/uL (0.11-0.8); Monocytes % 1.9 % (1.7-12.7); Neutrophils # 13.1 10*3/uL (1.4-7.4); Platelet Count 393 T/CUMM (130-400); Red Blood Count 4.42 MC/CUMM (3.8-5.5); Red Cell Distribution Width 15.1 % (9.3-17.3); White Blood Count 14.4 T/CUMM (4-12)
--- NOTE | 2016-10-14 10:04 | XRay Report ---
Portable chest Date: 10/14/2016 Clinical history: Follow-up pneumonia Comparison: 10/11/2016 Technique: Portable AP sitting chest Findings: The heart is borderline in size. Expiratory chest with reduced atelectasis/infiltration of the right lung base with progressive atelectasis/infiltration at the left lung base. Degenerative changes are noted with stable sclerotic ossific findings in the left shoulder location. Impression: Reduced atelectasis/infiltrate in the right lung base with similar progressive findings at the left lung base. PROCEDURE INTERPRETED AT [facility] DEPARTMENT OF RADIOLOGY Final Report Signed by: Dr. Britta Chou
--- NOTE | 2016-10-14 10:24 | Hospitalist Progress Note ---
<Mynor Dahl - Last Filed: 10/14/16 10:20> Assessment and Plan - Time spent with patient Time spent with patient: Less than 30 minutes (1) Right lower lobe pneumonia Status: Acute Assessment and plan: CXR today reveals reduced atelectasis/infiltrate in right lung base. Continue tobramycin and zosyn. Pulmonology continues to follow. Current Visit: Yes Qualifiers: Pneumonia type: due to Pseudomonas Qualified Code(s): J15.1 - Pneumonia due to Pseudomonas (2) UTI (urinary tract infection) Status: Acute Assessment and plan: Continue diflucan as ordered Current Visit: Yes (3) Anoxic brain injury Status: Chronic Assessment and plan: Patient is unresponsive and being fed through a PEG tube. On exam, the patient does look around but fails to make eye contact. He no longer has a trach and appears to be coping well without it. CXR reveals reduced atelectasis/ infiltrate in RLL. Family has decided against replacing his tracheostomy. Pulmonology is following and using CoughAssist and nasopharyngeal suctioning to assist with clearing secretions from his pneumonia. Current Visit: No Hospitalist: Subjective Interval history: Patient seen and examined today. He appears to be coping well without the tracheostomy. He continues to be treated with tobramycin and Zosyn for the pseudomonas that grew from his bronchial washings. CXR this morning revealed reduced atelectasis/infiltrate in the right lung base. No other significant events reported overnight. Exam - Constitutional Vitals: Period Temp Pulse Resp BP Sys/Plata Pulse Ox Last 24 Hr 96.1 F-98.3 F 72-111 16-21 113-143/65-83 91-100 Exam: General appearance: normal weight, no acute distress - Head Head exam: Present: normocephalic, atraumatic - Eye Eye exam: Present: EOMI. Absent: conjunctival injection, nystagmus Pupils: Present: JOSE, normal accommodation - ENT ENT exam: Present: normal exam, normal external ear exam, trach stoma with scab formation - Neck Neck exam: Present: normal inspection. Absent: lymphadenopathy, tenderness, thyromegaly - Respiratory Respiratory exam: Present: diffuse adventitious lung sounds throughout. Absent : rales, wheezes - Cardiovascular Cardiovascular exam: Present: regular rate and rhythm. Absent: carotid bruit, gallop, rubs - GI/Abdominal GI/Abdominal exam: Present: normal bowel sounds, PEG tube in place. Absent: ascites, distended, mass - Extremities Exam Extremities exam: Present: normal inspection, normal capillary refill. Absent: edema - Back Exam Back exam: Absent: CVA tenderness (L), CVA tenderness (R) - Neurological Exam Neurological exam: Present: altered - Psychiatric Psychiatric exam: Present: flat affect - Skin Skin exam: Present: normal color, warm, dry Results - Labs CBC & BMP: 10/14/16 08:08 10/14/16 08:08 Lab Results: I have reviewed the past 24 hour labs - Diagnostic Findings Procedure: Chest x-ray: image reviewed by me, report reviewed by me (reduced atelectasis/infiltrate in RLL) <Noni Amaro - Last Filed: 10/14/16 13:19> Assessment and Plan (1) Urinary tract infection Status: Acute Current Visit: No Qualifiers: Urinary tract infection type: catheter-associated UTI Indwelling urinary catheter type: indwelling urethral catheter Encounter type: initial encounter Qualified Code(s): T83.511A - Infection and inflammatory reaction due to indwelling urethral catheter, initial encounter; N39.0 - Urinary tract infection , site not specified (2) Anoxic brain injury Status: Chronic Current Visit: No (3) Right lower lobe pneumonia Status: Acute Current Visit: Yes Qualifiers: Pneumonia type: due to Pseudomonas Qualified Code(s): J15.1 - Pneumonia due to Pseudomonas Hospitalist: Subjective Interval history: Patient seen and examined independently of MARIANA Dahl, agree with assessment and plan as documented. Pulmonary assisting. Bronchial washings grew pseudomonas. Continue tobramycin. Will need for 5 more days. Discontinue zosyn. Exam - Constitutional Vitals: Period Temp Pulse Resp BP Sys/Plata Pulse Ox Last 24 Hr 96.1 F-98.3 F 72-111 16-21 113-128/65-74 91-98 Results - Labs CBC & BMP: 10/14/16 08:08 10/14/16 08:08
[2016-10-14] MEDS: SODIUM HYPOCHLORITE 0.25% IRRIG 473 ML BOTTLE TOP SCH ×2 (10:30→20:43)
[2016-10-14 11:27] LABS: Hypochromasia 1+; Lymphocytes 5 % (20-55); Platelet Estimate Adequate; Polychromasia Slight; Segmented Neutrophils 93 % (50-85); Total Cells Counted 100
[2016-10-14] MEDS: ENOXAPARIN 40 MG/0.4 ML SYRINGE SUBCUT SCH (12:58)
[2016-10-14] MEDS: TOBRAMYCIN IV SCH (17:00)
[2016-10-14] MEDS: SODIUM CHLORIDE 0.9% IV SCH (17:00)
[2016-10-14] MEDS: FLUCONAZOLE INJ 200 MG in PREMIX 1 EACH IV SCH (18:00)
[2016-10-14] MEDS: DEXTROSE 5% 1,000 ML IV SCH (20:09)
[2016-10-15] MEDS: ALBUTEROL/IPRATROPIUM 3 ML NEB RESP TX SCH ×4 (01:22→19:23)
[2016-10-15] MEDS: methylPREDNISolone SOD SUC 40 MG/1 ML VIAL IV SCH (02:28)
[2016-10-15] MEDS: CIPROFLOXACIN 0.3% OPH SOLN 2.5 ML BOTTLE RIGHT EYE SCH ×7 (02:28→22:41)
[2016-10-15] MEDS: METOCLOPRAMIDE 10 MG/10 ML UDCUP PEG SCH ×4 (02:28→20:46)
[2016-10-15] MEDS: diphenhydrAMINE 25 MG/10 ML UDCUP PO SCH ×3 (02:28→17:31)
[2016-10-15 06:44] LABS: Calcium 8.9 MG/DL (8.5-10.1); Magnesium 2.2 MG/DL (1.8-2.4); Osmolality,Calculated 289.8 MOS/KG (273-304); Potassium 3.4 MMOL/L (3.5-5.1)
[2016-10-15 07:13] LABS: Basophils % 0.1 % (0.0-0.8); Eosinophils % 0.1 % (0.00-10.9); Hematocrit 37.8 VOL% (42.0-52.0); Hemoglobin 11.4 GM/DL (14.0-18.0); Immature Granulocytes % 0.6 %; Immature Granulocytes Absolute 0.12 #; Lymphocytes # 0.8 10*3/uL (1.4-4.0); Lymphocytes % 4.4 % (21.2-54.2); Mean Corpuscular HGB Conc 30.2 GM/DL (32-36); Mean Corpuscular Hemoglobin 25 PG (27-34); Mean Corpuscular Volume 84.2 FL (87-102); Mean Platelet Volume 10.6 FL (9.6-12.0); Monocytes # 0.3 10*3/uL (0.11-0.8); Monocytes % 1.8 % (1.7-12.7); Neutrophils # 17.8 10*3/uL (1.4-7.4); Platelet Count 400 T/CUMM (130-400); Red Blood Count 4.49 MC/CUMM (3.8-5.5); Red Cell Distribution Width 16.1 % (9.3-17.3); White Blood Count 19.2 T/CUMM (4-12)
[2016-10-15 07:20] LABS: Lymphocytes 2 % (20-55); Segmented Neutrophils 94 % (50-85); Total Cells Counted 100
[2016-10-15 07:21] LABS: Hypochromasia 1+; Ovalocytes Slight; Platelet Estimate Adequate
--- NOTE | 2016-10-15 07:40 | Pulmonology Progress Note ---
Pulmonary - PN: Subj Interval history: This 41-year-old white male was sent over from the long term after pulling out his tracheostomy. He seems to have done fine with it out. We had considered removing an earlier but still needed it to suction him from time to time. He seems to be breathing better with the tracheostomy out. I would just leave it out. He has one mild area of stranding in his right mid lung that has been called pneumonia. He is on antibiotics for that. Also has urinary tract infection. Could be changed to antibiotics per PEG tube and go back to the long term tomorrow if chest x-ray looks okay in the morning. 10/09/2016 patient having a little more difficulty with coarse rhonchi. White blood count is up to 16,000. No fever. Oxygen saturations acceptable. Chest x -ray looks a little bit worse. I still favor leaving the tracheostomy out if we can. I will plan bronchoscopy in the morning and evaluate his airways. May yet want to get the trach replaced. If he has problems with hypoxemia that is what I would do next. 10/10/2016 patient has a lower white count. However he is having some diaphoresis. No fever has been recorded. He had fiberoptic bronchoscopy this morning which is dictated separately. He has a strong cough but is not able to expectorate sputum. I think he clearly needs his tracheostomy replaced for tracheal toilet. 10/11/2016 patient clearly is better today. His chest x-ray is improved. His lungs sound better. He is tolerating the CoughAssist machine. His mother declined the tracheostomy at this point. I think that is reasonable. We will treat him without the tracheostomy. He may require suctioning from time to time. If his cough is adequate with the CoughAssist machine then we may do fine without it. Would treat him for a few more days with antibiotics. He does have some erythema on his face and chest that I think is probably red man syndrome secondary to vancomycin. We will slow down the administration of the vancomycin and give him some antihistamines. May be able to change off of that once the bronchial wash cultures are out. 10/14/2016 he seems to be doing well with the tracheostomy out now. He grew Pseudomonas from bronchial washings that was only sensitive to aminoglycosides. Presently on combination of tobramycin and Zosyn. Needs at least 5 days of tobramycin which would put us through with that. Would look for return to long term Friday if stable and if possible. 10/15/2016 patient remains afebrile. White count is up to 19,000 however. I do think we should continue with a combination of antibiotics despite the fact that it is resistant to Zosyn. Using it in combination with an aminoglycoside might be more effective than the aminoglycoside alone. Usually need to antibiotics for Pseudomonas to prevent resistance. His chest x-ray has shown improvement. Probably can be discharged to the long term on Friday if all is stable. Exam (Progress Note) - Constitutional Vitals: Period Temp Pulse Resp BP Sys/Plata Pulse Ox Last 24 Hr 98.0 F-99.8 F 88-115 17-22 124-155/76-93 90-100 Exam: He has severe hypoxic brain injury and is not responsive. He does look around with his eyes and move his arms from time to time. He is afebrile. Pupils were reactive. Face no longer red, throat clear. Neck supple. Tracheostomy site almost completely sealed. Chest shows mild rhonchi bilaterally, equal breath sounds. Heart normal rate rhythm no murmurs. Abdomen soft no masses. PEG tube in place and looks clean. Extremities no clubbing cyanosis or edema. Results - Labs CBC & BMP: 10/15/16 05:28 10/15/16 05:28 Lab Results: I have reviewed the past 24 hour labs Assessment and Plan (1) Right lower lobe pneumonia Status: Acute Assessment and plan: Probably has a mild infiltrate at the right base. Agree with empiric antibiotics. Does not need bronchoscopy at this point. He has a pretty good cough it appears. 10/08/16 very mild pneumonia at worst. Probably could change to Ceftin per PEG tube and discharge tomorrow back to long term if chest x-ray is stable or better. 10/09/2016 he has some bibasilar pneumonia. Elevated white count. No fever. Continuing empiric antibiotics. Not ready to go back to long term as yet. I will plan bronchoscopy in the morning. Make a decision after that as to whether we can leave the trach out long-term. I certainly hope that we can do that. He should be able to breathe better with the trach out then with it and and capped. 10/10/2016 he has actually bibasilar pneumonia. On empiric antibiotics. Based on bronchoscopy findings today we need to replace his tracheostomy to adequately clear his airways. 10/11/2016 we will continue treating antibiotics and leave the tracheostomy out, as is his mother's request. Check cultures this weekend. If we can stop vancomycin we should. He has red man syndrome likely from that. 10/14/2016 clinically he is much improved with the pneumonia. Needs about 5 more days of tobramycin as it was just started yesterday. The Pseudomonas was only sensitive to aminoglycosides. 10/15/2016 radiographically improved. Still has some atelectasis at the right base. This is healthcare facility acquired and is Pseudomonas so needs antibiotics a couple more days. Current Visit: Yes Qualifiers: Pneumonia type: due to Pseudomonas Qualified Code(s): J15.1 - Pneumonia due to Pseudomonas (2) Urinary tract infection Status: Acute Assessment and plan: Abnormal urinalysis suggesting urinary tract infection. Cultures pending. Previously grew Pseudomonas that was sensitive to Zosyn. Agree with Zosyn this time. 10/08/16 I do not see a report on the urine culture. 10/09/2016 only grew some yeast. Cover with Diflucan. Current Visit: No Qualifiers: Urinary tract infection type: catheter-associated UTI Indwelling urinary catheter type: indwelling urethral catheter Encounter type: initial encounter Qualified Code(s): T83.511A - Infection and inflammatory reaction due to indwelling urethral catheter, initial encounter; N39.0 - Urinary tract infection , site not specified (3) Sacral decubitus ulcer, stage IV Status: Chronic Assessment and plan: Dr. Molina has seen him for this. He feels his decubitus ulcers are clean. Just needs wound care while here. 10/09/2016 continuing wound care. 10/10/16 followed by wound care and surgery as needed. 10/11/16 this has been stable. 10/14/2016 continues to be followed by wound care. 10/15/2016 wound care following. Current Visit: No (4) Anoxic brain injury Status: Chronic Assessment and plan: Patient is being fed through PEG tube. He is not responsive. His tracheostomy is now out. If he can control his secretions with cough then he will not need to have the trach replaced. If his x-ray gets worse or is not able to clear secretions, then the tracheostomy could be replaced. 10/08/16 it does appear that he can defend his airway. Has a good cough. Have added cough assist. This could be continued at the nursing center. 10/09/2016 he has a pretty good cough. Remains to be seen how he will do with his pneumonia with his tracheostomy out. 10/10/2016 patient still not responsive. He has a vigorous cough but fails to clear secretions I think he continues to aspirate upper airway secretions. We need to get his tracheostomy replaced. 10/11/2016 decision has been made not to replace the tracheostomy, as his mother does not want it done. We would use CoughAssist and do nasopharyngeal suctioning as required. 10/14/2016 no change in mental status. Still looks around but does not make contact. Current Visit: No
[2016-10-15] MEDS: PIPERACILLIN/TAZOBACTAM 3,375 MG in SODIUM CHLORIDE 0.9% 100 ML IV SCH (08:42)
[2016-10-15] MEDS: METOPROLOL TARTRATE 50 MG TABLET PEG SCH ×2 (08:42→20:46)
[2016-10-15] MEDS: SODIUM HYPOCHLORITE 0.25% IRRIG 473 ML BOTTLE TOP SCH ×2 (08:42→20:47)
[2016-10-15] MEDS: ENOXAPARIN 40 MG/0.4 ML SYRINGE SUBCUT SCH (08:43)
[2016-10-15] MEDS: DESITIN 4OZ/NYSTATIN 15 GRAM MIXTURE PASTE TOP SCH ×2 (08:43→20:46)
[2016-10-15] MEDS: LANSOPRAZOLE ODT 30 MG TABLET PO SCH (08:43)
[2016-10-15] MEDS: LACTOBACILLUS RHAMNOSUS GG CAPSULE PO SCH ×2 (10:19→20:46)
[2016-10-15] MEDS: levETIRAcetam LIQUID 100 MG/ML 30 ML/BOTTLE PEG SCH ×2 (10:19→20:46)
--- NOTE | 2016-10-15 14:14 | Hospitalist Progress Note ---
Assessment and Plan (1) Right lower lobe pneumonia Status: Acute Assessment and plan: Lung sound clear but reduced breath sounds bilaterally.Bronchial washings grew Pseudomonas Continue with Tobramycin and Zosyn IV Pulm is following will get BC Current Visit: Yes Qualifiers: Pneumonia type: due to Pseudomonas Qualified Code(s): J15.1 - Pneumonia due to Pseudomonas (2) Anoxic brain injury Status: Chronic Assessment and plan: Patient is non-responsive, he appears comfortable on NC of oxygen. Continue good nursing care. CXR in am. Current Visit: No (3) Urinary tract infection Status: Acute Assessment and plan: due to yeast infection Continue with IV diflucan Current Visit: No Qualifiers: Urinary tract infection type: catheter-associated UTI Indwelling urinary catheter type: indwelling urethral catheter Encounter type: initial encounter Qualified Code(s): T83.511A - Infection and inflammatory reaction due to indwelling urethral catheter, initial encounter; N39.0 - Urinary tract infection , site not specified (4) Sacral decubitus ulcer, stage IV Status: Chronic Assessment and plan: continue with wound care Current Visit: No Hospitalist: Subjective Interval history: Patient appears comfortable on 2L of [place] oxygen. WBC is a little higher today with some low grade fever. Exam - Constitutional Vitals: Period Temp Pulse Resp BP Sys/Plata Pulse Ox Last 24 Hr 97.5 F-99.8 F 87-115 17-23 124-155/69-93 90-99 General appearance: no acute distress - Head Head exam: Present: normal inspection - Respiratory Respiratory exam: Present: clear to auscultation bilaterally - Cardiovascular Cardiovascular exam: Present: regular rate and rhythm - GI/Abdominal GI/Abdominal exam: Present: normal bowel sounds - Extremities Exam Extremities exam: Present: other (quadriplegic) Results - Labs CBC & BMP: 10/15/16 05:28 10/15/16 05:28 Lab Results: I have reviewed the past 24 hour labs
[2016-10-15] MEDS: FLUCONAZOLE INJ 200 MG in PREMIX 1 EACH IV SCH (16:49)
[2016-10-15] MEDS: SODIUM CHLORIDE 0.9% IV SCH (21:06)
[2016-10-15] MEDS: TOBRAMYCIN IV SCH (21:06)
[2016-10-15] MEDS: DEXTROSE 5% 1,000 ML IV SCH (21:28)
[2016-10-16] MEDS: ALBUTEROL/IPRATROPIUM 3 ML NEB RESP TX SCH ×4 (00:04→20:23)
[2016-10-16] MEDS: PIPERACILLIN/TAZOBACTAM 3,375 MG in SODIUM CHLORIDE 0.9% 100 ML IV SCH ×3 (01:17→17:06)
[2016-10-16] MEDS: METOCLOPRAMIDE 10 MG/10 ML UDCUP PEG SCH ×4 (01:17→20:50)
[2016-10-16] MEDS: methylPREDNISolone SOD SUC 40 MG/1 ML VIAL IV SCH (01:17)
[2016-10-16] MEDS: diphenhydrAMINE 25 MG/10 ML UDCUP PO SCH ×3 (01:17→17:05)
[2016-10-16] MEDS: CIPROFLOXACIN 0.3% OPH SOLN 2.5 ML BOTTLE RIGHT EYE SCH ×6 (01:50→21:13)
--- NOTE | 2016-10-16 08:49 | Pulmonology Progress Note ---
Pulmonary - PN: Subj Interval history: This 41-year-old white male was sent over from the residential after pulling out his tracheostomy. He seems to have done fine with it out. We had considered removing an earlier but still needed it to suction him from time to time. He seems to be breathing better with the tracheostomy out. I would just leave it out. He has one mild area of stranding in his right mid lung that has been called pneumonia. He is on antibiotics for that. Also has urinary tract infection. Could be changed to antibiotics per PEG tube and go back to the residential tomorrow if chest x-ray looks okay in the morning. 10/09/2016 patient having a little more difficulty with coarse rhonchi. White blood count is up to 16,000. No fever. Oxygen saturations acceptable. Chest x -ray looks a little bit worse. I still favor leaving the tracheostomy out if we can. I will plan bronchoscopy in the morning and evaluate his airways. May yet want to get the trach replaced. If he has problems with hypoxemia that is what I would do next. 10/10/2016 patient has a lower white count. However he is having some diaphoresis. No fever has been recorded. He had fiberoptic bronchoscopy this morning which is dictated separately. He has a strong cough but is not able to expectorate sputum. I think he clearly needs his tracheostomy replaced for tracheal toilet. 10/11/2016 patient clearly is better today. His chest x-ray is improved. His lungs sound better. He is tolerating the CoughAssist machine. His mother declined the tracheostomy at this point. I think that is reasonable. We will treat him without the tracheostomy. He may require suctioning from time to time. If his cough is adequate with the CoughAssist machine then we may do fine without it. Would treat him for a few more days with antibiotics. He does have some erythema on his face and chest that I think is probably red man syndrome secondary to vancomycin. We will slow down the administration of the vancomycin and give him some antihistamines. May be able to change off of that once the bronchial wash cultures are out. 10/14/2016 he seems to be doing well with the tracheostomy out now. He grew Pseudomonas from bronchial washings that was only sensitive to aminoglycosides. Presently on combination of tobramycin and Zosyn. Needs at least 5 days of tobramycin which would put us through with that. Would look for return to residential Friday if stable and if possible. 10/15/2016 patient remains afebrile. White count is up to 19,000 however. I do think we should continue with a combination of antibiotics despite the fact that it is resistant to Zosyn. Using it in combination with an aminoglycoside might be more effective than the aminoglycoside alone. Usually need to antibiotics for Pseudomonas to prevent resistance. His chest x-ray has shown improvement. Probably can be discharged to the residential on Friday if all is stable. 10/16/2016 maximum temperature was 99.7. Patient does have some rhonchi but otherwise no respiratory difficulty. Plan for finishing antibiotic Friday. Recheck renal function tomorrow. Exam (Progress Note) - Constitutional Vitals: Period Temp Pulse Resp BP Sys/Plata Pulse Ox Last 24 Hr 97.5 F-99.7 F 65-107 18-22 126-140/69-89 90-99 Exam: He has severe hypoxic brain injury and is not responsive. He does look around with his eyes and move his arms from time to time. He is afebrile. Pupils were reactive. Face no longer red, throat clear. Neck supple. Tracheostomy site almost completely sealed. Chest shows mild rhonchi bilaterally, equal breath sounds. Heart normal rate rhythm no murmurs. Abdomen soft no masses. PEG tube in place and looks clean. Extremities no clubbing cyanosis or edema. Results - Labs CBC & BMP: 10/15/16 05:28 10/15/16 05:28 Lab Results: I have reviewed the past 24 hour labs Assessment and Plan (1) Right lower lobe pneumonia Status: Acute Assessment and plan: Probably has a mild infiltrate at the right base. Agree with empiric antibiotics. Does not need bronchoscopy at this point. He has a pretty good cough it appears. 10/08/16 very mild pneumonia at worst. Probably could change to Ceftin per PEG tube and discharge tomorrow back to residential if chest x-ray is stable or better. 10/09/2016 he has some bibasilar pneumonia. Elevated white count. No fever. Continuing empiric antibiotics. Not ready to go back to residential as yet. I will plan bronchoscopy in the morning. Make a decision after that as to whether we can leave the trach out long-term. I certainly hope that we can do that. He should be able to breathe better with the trach out then with it and and capped. 10/10/2016 he has actually bibasilar pneumonia. On empiric antibiotics. Based on bronchoscopy findings today we need to replace his tracheostomy to adequately clear his airways. 10/11/2016 we will continue treating antibiotics and leave the tracheostomy out, as is his mother's request. Check cultures this weekend. If we can stop vancomycin we should. He has red man syndrome likely from that. 10/14/2016 clinically he is much improved with the pneumonia. Needs about 5 more days of tobramycin as it was just started yesterday. The Pseudomonas was only sensitive to aminoglycosides. 10/15/2016 radiographically improved. Still has some atelectasis at the right base. This is healthcare facility acquired and is Pseudomonas so needs antibiotics a couple more days. 10/16/2016 clinically improved. Complete antibiotics Friday. Current Visit: Yes Qualifiers: Pneumonia type: due to Pseudomonas Qualified Code(s): J15.1 - Pneumonia due to Pseudomonas (2) Urinary tract infection Status: Acute Assessment and plan: Abnormal urinalysis suggesting urinary tract infection. Cultures pending. Previously grew Pseudomonas that was sensitive to Zosyn. Agree with Zosyn this time. 10/08/16 I do not see a report on the urine culture. 10/09/2016 only grew some yeast. Cover with Diflucan. Current Visit: No Qualifiers: Urinary tract infection type: catheter-associated UTI Indwelling urinary catheter type: indwelling urethral catheter Encounter type: initial encounter Qualified Code(s): T83.511A - Infection and inflammatory reaction due to indwelling urethral catheter, initial encounter; N39.0 - Urinary tract infection , site not specified (3) Sacral decubitus ulcer, stage IV Status: Chronic Assessment and plan: Dr. Molina has seen him for this. He feels his decubitus ulcers are clean. Just needs wound care while here. 10/09/2016 continuing wound care. 10/10/16 followed by wound care and surgery as needed. 10/11/16 this has been stable. 10/14/2016 continues to be followed by wound care. 10/15/2016 wound care following. 10/16/2016 will need long-term follow-up of surgery. Dr. Molina has Current Visit: No (4) Anoxic brain injury Status: Chronic Assessment and plan: Patient is being fed through PEG tube. He is not responsive. His tracheostomy is now out. If he can control his secretions with cough then he will not need to have the trach replaced. If his x-ray gets worse or is not able to clear secretions, then the tracheostomy could be replaced. 10/08/16 it does appear that he can defend his airway. Has a good cough. Have added cough assist. This could be continued at the nursing center. 10/09/2016 he has a pretty good cough. Remains to be seen how he will do with his pneumonia with his tracheostomy out. 10/10/2016 patient still not responsive. He has a vigorous cough but fails to clear secretions I think he continues to aspirate upper airway secretions. We need to get his tracheostomy replaced. 10/11/2016 decision has been made not to replace the tracheostomy, as his mother does not want it done. We would use CoughAssist and do nasopharyngeal suctioning as required. 10/14/2016 no change in mental status. Still looks around but does not make contact. 10/16/2016 remains unresponsive. Current Visit: No
[2016-10-16] MEDS: ENOXAPARIN 40 MG/0.4 ML SYRINGE SUBCUT SCH (08:58)
[2016-10-16] MEDS: DESITIN 4OZ/NYSTATIN 15 GRAM MIXTURE PASTE TOP SCH ×2 (08:59→21:00)
[2016-10-16] MEDS: levETIRAcetam LIQUID 100 MG/ML 30 ML/BOTTLE PEG SCH ×2 (08:59→20:49)
[2016-10-16] MEDS: LACTOBACILLUS RHAMNOSUS GG CAPSULE PO SCH ×2 (09:00→20:50)
[2016-10-16] MEDS: SODIUM HYPOCHLORITE 0.25% IRRIG 473 ML BOTTLE TOP SCH ×2 (09:00→21:16)
[2016-10-16] MEDS: METOPROLOL TARTRATE 50 MG TABLET PEG SCH ×2 (09:00→20:50)
[2016-10-16] MEDS: LANSOPRAZOLE ODT 30 MG TABLET PO SCH (09:00)
[2016-10-16] MEDS: FLUCONAZOLE INJ 200 MG in PREMIX 1 EACH IV SCH (16:18)
--- NOTE | 2016-10-16 17:14 | Hospitalist Progress Note ---
Assessment and Plan (1) Right lower lobe pneumonia Status: Acute Assessment and plan: Lung sounds clear but reduced breath sounds bilaterally.Bronchial washings grew Pseudomonas Continue with Tobramycin and Zosyn IV till friday Pulm is following BC- negative so far Current Visit: Yes Qualifiers: Pneumonia type: due to Pseudomonas Qualified Code(s): J15.1 - Pneumonia due to Pseudomonas (2) Anoxic brain injury Status: Chronic Assessment and plan: Patient is non-responsive, he appears comfortable on NC of oxygen. Continue good nursing care. CXR in am. Current Visit: No (3) Urinary tract infection Status: Acute Assessment and plan: due to yeast infection Continue with IV diflucan Current Visit: No Qualifiers: Urinary tract infection type: catheter-associated UTI Indwelling urinary catheter type: indwelling urethral catheter Encounter type: initial encounter Qualified Code(s): T83.511A - Infection and inflammatory reaction due to indwelling urethral catheter, initial encounter; N39.0 - Urinary tract infection , site not specified (4) Sacral decubitus ulcer, stage IV Status: Chronic Assessment and plan: continue with wound care Current Visit: No Hospitalist: Subjective Interval history: Patient seen and no new issues. He will be on IV antibiotics till Friday. Exam - Constitutional Vitals: Period Temp Pulse Resp BP Sys/Plata Pulse Ox Last 24 Hr 96.9 F-99.7 F 101-108 19-22 126-140/67-89 90-96 General appearance: no acute distress - Head Head exam: Present: normal inspection - Respiratory Respiratory exam: Present: clear to auscultation bilaterally - Cardiovascular Cardiovascular exam: Present: regular rate and rhythm - GI/Abdominal GI/Abdominal exam: Present: normal bowel sounds - Extremities Exam Extremities exam: Present: other (sacral decubitus ulcer) Results - Labs CBC & BMP: 10/15/16 05:28 10/15/16 05:28 Lab Results: I have reviewed the past 24 hour labs
[2016-10-16] MEDS: DEXTROSE 5% 1,000 ML IV SCH (21:00)
[2016-10-16] MEDS: SODIUM CHLORIDE 0.9% IV SCH (21:28)
[2016-10-16] MEDS: TOBRAMYCIN IV SCH (21:28)
[2016-10-17] MEDS: ALBUTEROL/IPRATROPIUM 3 ML NEB RESP TX SCH ×4 (00:41→19:28)
[2016-10-17] MEDS: methylPREDNISolone SOD SUC 40 MG/1 ML VIAL IV SCH (01:31)
[2016-10-17] MEDS: PIPERACILLIN/TAZOBACTAM 3,375 MG in SODIUM CHLORIDE 0.9% 100 ML IV SCH ×3 (01:33→17:30)
[2016-10-17] MEDS: CIPROFLOXACIN 0.3% OPH SOLN 2.5 ML BOTTLE RIGHT EYE SCH ×6 (01:34→21:02)
[2016-10-17] MEDS: METOCLOPRAMIDE 10 MG/10 ML UDCUP PEG SCH ×3 (05:11→20:27)
--- NOTE | 2016-10-17 07:34 | Pulmonology Progress Note ---
Pulmonary - PN: Subj Interval history: This 41-year-old white male was sent over from the care home after pulling out his tracheostomy. He seems to have done fine with it out. We had considered removing an earlier but still needed it to suction him from time to time. He seems to be breathing better with the tracheostomy out. I would just leave it out. He has one mild area of stranding in his right mid lung that has been called pneumonia. He is on antibiotics for that. Also has urinary tract infection. Could be changed to antibiotics per PEG tube and go back to the care home tomorrow if chest x-ray looks okay in the morning. 10/09/2016 patient having a little more difficulty with coarse rhonchi. White blood count is up to 16,000. No fever. Oxygen saturations acceptable. Chest x -ray looks a little bit worse. I still favor leaving the tracheostomy out if we can. I will plan bronchoscopy in the morning and evaluate his airways. May yet want to get the trach replaced. If he has problems with hypoxemia that is what I would do next. 10/10/2016 patient has a lower white count. However he is having some diaphoresis. No fever has been recorded. He had fiberoptic bronchoscopy this morning which is dictated separately. He has a strong cough but is not able to expectorate sputum. I think he clearly needs his tracheostomy replaced for tracheal toilet. 10/11/2016 patient clearly is better today. His chest x-ray is improved. His lungs sound better. He is tolerating the CoughAssist machine. His mother declined the tracheostomy at this point. I think that is reasonable. We will treat him without the tracheostomy. He may require suctioning from time to time. If his cough is adequate with the CoughAssist machine then we may do fine without it. Would treat him for a few more days with antibiotics. He does have some erythema on his face and chest that I think is probably red man syndrome secondary to vancomycin. We will slow down the administration of the vancomycin and give him some antihistamines. May be able to change off of that once the bronchial wash cultures are out. 10/14/2016 he seems to be doing well with the tracheostomy out now. He grew Pseudomonas from bronchial washings that was only sensitive to aminoglycosides. Presently on combination of tobramycin and Zosyn. Needs at least 5 days of tobramycin which would put us through with that. Would look for return to care home Friday if stable and if possible. 10/15/2016 patient remains afebrile. White count is up to 19,000 however. I do think we should continue with a combination of antibiotics despite the fact that it is resistant to Zosyn. Using it in combination with an aminoglycoside might be more effective than the aminoglycoside alone. Usually need to antibiotics for Pseudomonas to prevent resistance. His chest x-ray has shown improvement. Probably can be discharged to the care home on Friday if all is stable. 10/16/2016 maximum temperature was 99.7. Patient does have some rhonchi but otherwise no respiratory difficulty. Plan for finishing antibiotic Friday. Recheck renal function tomorrow. 10/17/2016 patient remains unresponsive but moves spontaneously. No further fever. He has a little purulent drainage from the tracheostomy site that I think is just sputum that gets through the residual stoma there. We will try using a petrolatum gauze to get it to finish sealing off. Need to recheck his renal function. Should be ready for discharge tomorrow if all is stable. Exam (Progress Note) - Constitutional Vitals: Period Temp Pulse Resp BP Sys/Plata Pulse Ox Last 24 Hr 96.9 F-98.9 F 100-111 18-24 128-136/67-91 92-99 Exam: He has severe hypoxic brain injury and is not responsive. He does look around with his eyes and move his arms from time to time. He is afebrile. Pupils were reactive. Face no longer red, throat clear. Neck supple. Tracheostomy site almost completely sealed, but still a small amount of cloudy drainage. Chest shows mild rhonchi bilaterally, equal breath sounds. Heart normal rate rhythm no murmurs. Abdomen soft no masses. PEG tube in place and looks clean. Extremities no clubbing cyanosis or edema. Results - Labs CBC & BMP: 10/15/16 05:28 10/15/16 05:28 Lab Results: I have reviewed the past 24 hour labs - Diagnostic Findings Procedure: Chest x-ray: image reviewed by me (Chest x-ray is essentially clear now) Assessment and Plan (1) Right lower lobe pneumonia Status: Acute Assessment and plan: Probably has a mild infiltrate at the right base. Agree with empiric antibiotics. Does not need bronchoscopy at this point. He has a pretty good cough it appears. 10/08/16 very mild pneumonia at worst. Probably could change to Ceftin per PEG tube and discharge tomorrow back to care home if chest x-ray is stable or better. 10/09/2016 he has some bibasilar pneumonia. Elevated white count. No fever. Continuing empiric antibiotics. Not ready to go back to care home as yet. I will plan bronchoscopy in the morning. Make a decision after that as to whether we can leave the trach out long-term. I certainly hope that we can do that. He should be able to breathe better with the trach out then with it and and capped. 10/10/2016 he has actually bibasilar pneumonia. On empiric antibiotics. Based on bronchoscopy findings today we need to replace his tracheostomy to adequately clear his airways. 10/11/2016 we will continue treating antibiotics and leave the tracheostomy out, as is his mother's request. Check cultures this weekend. If we can stop vancomycin we should. He has red man syndrome likely from that. 10/14/2016 clinically he is much improved with the pneumonia. Needs about 5 more days of tobramycin as it was just started yesterday. The Pseudomonas was only sensitive to aminoglycosides. 10/15/2016 radiographically improved. Still has some atelectasis at the right base. This is healthcare facility acquired and is Pseudomonas so needs antibiotics a couple more days. 10/16/2016 clinically improved. Complete antibiotics Friday. Her graph 2016 radiographically improved. Will finish a week's worth of anti-pseudomonal antibiotics tomorrow. Can return to care home if afebrile. He will be at risk for recurrent episodes of pneumonia going forward due to his decreased level of consciousness. Patient's mother has declined putting the tracheostomy back in, which is understandable at this point. It would not prevent pneumonias. Current Visit: Yes Qualifiers: Pneumonia type: due to Pseudomonas Qualified Code(s): J15.1 - Pneumonia due to Pseudomonas (2) Urinary tract infection Status: Acute Assessment and plan: Abnormal urinalysis suggesting urinary tract infection. Cultures pending. Previously grew Pseudomonas that was sensitive to Zosyn. Agree with Zosyn this time. 10/08/16 I do not see a report on the urine culture. 10/09/2016 only grew some yeast. Cover with Diflucan. Current Visit: No Qualifiers: Urinary tract infection type: catheter-associated UTI Indwelling urinary catheter type: indwelling urethral catheter Encounter type: initial encounter Qualified Code(s): T83.511A - Infection and inflammatory reaction due to indwelling urethral catheter, initial encounter; N39.0 - Urinary tract infection , site not specified (3) Sacral decubitus ulcer, stage IV Status: Chronic Assessment and plan: Dr. Molina has seen him for this. He feels his decubitus ulcers are clean. Just needs wound care while here. 10/09/2016 continuing wound care. 10/10/16 followed by wound care and surgery as needed. 10/11/16 this has been stable. 10/14/2016 continues to be followed by wound care. 10/15/2016 wound care following. 10/16/2016 will need long-term follow-up of surgery. Dr. Molina has been following 10/17/2016 will need to be followed up at the care home by the wound care nurse there. Dr. Molina will be available to follow here as needed. Current Visit: No (4) Anoxic brain injury Status: Chronic Assessment and plan: Patient is being fed through PEG tube. He is not responsive. His tracheostomy is now out. If he can control his secretions with cough then he will not need to have the trach replaced. If his x-ray gets worse or is not able to clear secretions, then the tracheostomy could be replaced. 10/08/16 it does appear that he can defend his airway. Has a good cough. Have added cough assist. This could be continued at the nursing center. 10/09/2016 he has a pretty good cough. Remains to be seen how he will do with his pneumonia with his tracheostomy out. 10/10/2016 patient still not responsive. He has a vigorous cough but fails to clear secretions I think he continues to aspirate upper airway secretions. We need to get his tracheostomy replaced. 10/11/2016 decision has been made not to replace the tracheostomy, as his mother does not want it done. We would use CoughAssist and do nasopharyngeal suctioning as required. 10/14/2016 no change in mental status. Still looks around but does not make contact. 10/16/2016 remains unresponsive. 10/17/2016 this is apparently a permanent hypoxic injury. He does not communicate with his environment. This would be a persistent vegetative state. Current Visit: No
[2016-10-17 08:07] LABS: Calcium 8.4 MG/DL (8.5-10.1); Magnesium 2.1 MG/DL (1.8-2.4); Osmolality,Calculated 284.3 MOS/KG (273-304); Phosphorous 3.1 MG/DL (2.5-4.9); Prealbumin 33.2 MG/DL (20-40)
--- NOTE | 2016-10-17 09:20 | XRay Report ---
Exam: XR chest 1V portable Date: 10/17/2016 4:00 AM Indication: Shortness of breath Comparison: 10/14/2016 Technical: AP portable Findings: Cardiomegaly present. No obvious pneumothorax. Oxygen tubing superimposes exam. Mild interstitial densities are present in both bases. ASVD is present. Mediastinum is intact. Impression: 1. Cardiomegaly 2. Bibasilar interstitial alveolar infiltrates persist PROCEDURE INTERPRETED AT [facility] DEPARTMENT OF RADIOLOGY Final Report Signed by: Dr. Isaías Duffy
[2016-10-17] MEDS: LACTOBACILLUS RHAMNOSUS GG CAPSULE PO SCH ×2 (10:17→20:27)
[2016-10-17] MEDS: METOPROLOL TARTRATE 50 MG TABLET PEG SCH ×2 (10:18→20:27)
[2016-10-17] MEDS: ENOXAPARIN 40 MG/0.4 ML SYRINGE SUBCUT SCH (10:18)
[2016-10-17] MEDS: LANSOPRAZOLE ODT 30 MG TABLET PO SCH (10:18)
[2016-10-17] MEDS: DESITIN 4OZ/NYSTATIN 15 GRAM MIXTURE PASTE TOP SCH ×2 (10:19→20:28)
[2016-10-17] MEDS: SODIUM HYPOCHLORITE 0.25% IRRIG 473 ML BOTTLE TOP SCH ×2 (10:19→20:43)
[2016-10-17] MEDS: levETIRAcetam LIQUID 100 MG/ML 30 ML/BOTTLE PEG SCH ×2 (10:19→20:28)
[2016-10-17] MEDS ORDERED: POTASSIUM CHLORIDE 20 MEQ/15 ML UDCUP PER TUBE ONE (12:00)
--- NOTE | 2016-10-17 12:53 | Hospitalist Progress Note ---
Assessment and Plan (1) Right lower lobe pneumonia Status: Acute Assessment and plan: Lung sounds clear but reduced breath sounds bilaterally.Bronchial washings grew Pseudomonas. CXR showed bibasilar infiltrates Continue with Tobramycin and Zosyn IV till Friday Pulm is following BC- negative so far Current Visit: Yes Qualifiers: Pneumonia type: due to Pseudomonas Qualified Code(s): J15.1 - Pneumonia due to Pseudomonas (2) Anoxic brain injury Status: Chronic Assessment and plan: Patient is non-responsive, he appears comfortable on NC of oxygen. Continue good nursing care. CXR in am. Current Visit: No (3) Urinary tract infection Status: Acute Assessment and plan: due to yeast infection Continue with IV diflucan Current Visit: No Qualifiers: Urinary tract infection type: catheter-associated UTI Indwelling urinary catheter type: indwelling urethral catheter Encounter type: initial encounter Qualified Code(s): T83.511A - Infection and inflammatory reaction due to indwelling urethral catheter, initial encounter; N39.0 - Urinary tract infection , site not specified (4) Sacral decubitus ulcer, stage IV Status: Chronic Assessment and plan: continue with wound care Current Visit: No (5) Debility Status: Acute Assessment and plan: He is bed bound and quadriplegic Plan Continue with good Nursing care. Current Visit: Yes Hospitalist: Subjective Interval history: Patient seen. He is still unresponsive and moves spontaneously.CXR showed bibasilar infiltrates. His WBC is slightly higher but there is no evidence of fever and patient is on steroids Exam - Constitutional Vitals: Period Temp Pulse Resp BP Sys/Plata Pulse Ox Last 24 Hr 96.9 F-98.9 F 100-127 18-24 112-133/67-91 92-99 General appearance: no acute distress, other (on NC oxygen. His tracheostomy site is almost completely sealed) - Respiratory Respiratory exam: Present: rales - Cardiovascular Cardiovascular exam: Present: regular rate and rhythm - GI/Abdominal GI/Abdominal exam: Present: normal bowel sounds - Extremities Exam Extremities exam: Present: other (quadriplegic) Results - Labs CBC & BMP: 10/15/16 05:28 10/17/16 05:32 Lab Results: I have reviewed the past 24 hour labs
[2016-10-17] MEDS: FLUCONAZOLE INJ 200 MG in PREMIX 1 EACH IV SCH (17:31)
[2016-10-17] MEDS: DEXTROSE 5% 1,000 ML IV SCH (20:27)
[2016-10-17] MEDS: TOBRAMYCIN IV SCH (22:45)
[2016-10-17] MEDS: SODIUM CHLORIDE 0.9% IV SCH (22:45)
[2016-10-18] MEDS: methylPREDNISolone SOD SUC 40 MG/1 ML VIAL IV SCH (01:17)
[2016-10-18] MEDS: CIPROFLOXACIN 0.3% OPH SOLN 2.5 ML BOTTLE RIGHT EYE SCH ×3 (01:21→09:02)
[2016-10-18] MEDS: PIPERACILLIN/TAZOBACTAM 3,375 MG in SODIUM CHLORIDE 0.9% 100 ML IV SCH ×2 (01:21→09:01)
[2016-10-18] MEDS: ALBUTEROL/IPRATROPIUM 3 ML NEB RESP TX SCH ×2 (02:18→07:03)
[2016-10-18] MEDS: METOCLOPRAMIDE 10 MG/10 ML UDCUP PEG SCH (04:59)
[2016-10-18 06:19] LABS: Basophils % 0.1 % (0.0-0.8); Hematocrit 37.4 VOL% (42.0-52.0); Hemoglobin 11.5 GM/DL (14.0-18.0); Immature Granulocytes % 0.5 %; Immature Granulocytes Absolute 0.06 #; Lymphocytes # 0.5 10*3/uL (1.4-4.0); Lymphocytes % 3.6 % (21.2-54.2); Mean Corpuscular HGB Conc 30.7 GM/DL (32-36); Mean Corpuscular Hemoglobin 25 PG (27-34); Mean Corpuscular Volume 82.6 FL (87-102); Mean Platelet Volume 10.4 FL (9.6-12.0); Monocytes # 0.1 10*3/uL (0.11-0.8); Monocytes % 0.5 % (1.7-12.7); Neutrophils # 12.7 10*3/uL (1.4-7.4); Neutrophils % 95.3 % (38.7-73.9); Platelet Count 426 T/CUMM (130-400); Red Blood Count 4.53 MC/CUMM (3.8-5.5); Red Cell Distribution Width 16.7 % (9.3-17.3); White Blood Count 13.3 T/CUMM (4-12)
[2016-10-18 06:46] LABS: Calcium 8.8 MG/DL (8.5-10.1); Lymphocytes 5 % (20-55); Osmolality,Calculated 284.5 MOS/KG (273-304); Potassium 4.1 MMOL/L (3.5-5.1); Segmented Neutrophils 95 % (50-85); Total Cells Counted 100
[2016-10-18 06:48] LABS: Hypochromasia 1+; Ovalocytes Slight; Platelet Estimate Adequate
[2016-10-18] MEDS: LACTOBACILLUS RHAMNOSUS GG CAPSULE PO SCH (09:01)
[2016-10-18] MEDS: levETIRAcetam LIQUID 100 MG/ML 30 ML/BOTTLE PEG SCH (09:01)
[2016-10-18] MEDS: METOPROLOL TARTRATE 50 MG TABLET PEG SCH (09:01)
[2016-10-18] MEDS: DESITIN 4OZ/NYSTATIN 15 GRAM MIXTURE PASTE TOP SCH (09:01)
[2016-10-18] MEDS: ENOXAPARIN 40 MG/0.4 ML SYRINGE SUBCUT SCH (09:01)
[2016-10-18] MEDS: SODIUM HYPOCHLORITE 0.25% IRRIG 473 ML BOTTLE TOP SCH (09:01)
[2016-10-18] MEDS: LANSOPRAZOLE ODT 30 MG TABLET PO SCH (09:01)
--- NOTE | 2016-10-18 09:14 | Pulmonology Progress Note ---
Pulmonary - PN: Subj Interval history: This 41-year-old white male was sent over from the [facility] after pulling out his tracheostomy. He seems to have done fine with it out. We had considered removing an earlier but still needed it to suction him from time to time. He seems to be breathing better with the tracheostomy out. I would just leave it out. He has one mild area of stranding in his right mid lung that has been called pneumonia. He is on antibiotics for that. Also has urinary tract infection. Could be changed to antibiotics per PEG tube and go back to the [facility] tomorrow if chest x-ray looks okay in the morning. 10/09/2016 patient having a little more difficulty with coarse rhonchi. White blood count is up to 16,000. No fever. Oxygen saturations acceptable. Chest x -ray looks a little bit worse. I still favor leaving the tracheostomy out if we can. I will plan bronchoscopy in the morning and evaluate his airways. May yet want to get the trach replaced. If he has problems with hypoxemia that is what I would do next. 10/10/2016 patient has a lower white count. However he is having some diaphoresis. No fever has been recorded. He had fiberoptic bronchoscopy this morning which is dictated separately. He has a strong cough but is not able to expectorate sputum. I think he clearly needs his tracheostomy replaced for tracheal toilet. 10/11/2016 patient clearly is better today. His chest x-ray is improved. His lungs sound better. He is tolerating the CoughAssist machine. His mother declined the tracheostomy at this point. I think that is reasonable. We will treat him without the tracheostomy. He may require suctioning from time to time. If his cough is adequate with the CoughAssist machine then we may do fine without it. Would treat him for a few more days with antibiotics. He does have some erythema on his face and chest that I think is probably red man syndrome secondary to vancomycin. We will slow down the administration of the vancomycin and give him some antihistamines. May be able to change off of that once the bronchial wash cultures are out. 10/14/2016 he seems to be doing well with the tracheostomy out now. He grew Pseudomonas from bronchial washings that was only sensitive to aminoglycosides. Presently on combination of tobramycin and Zosyn. Needs at least 5 days of tobramycin which would put us through with that. Would look for return to [facility] Friday if stable and if possible. 10/15/2016 patient remains afebrile. White count is up to 19,000 however. I do think we should continue with a combination of antibiotics despite the fact that it is resistant to Zosyn. Using it in combination with an aminoglycoside might be more effective than the aminoglycoside alone. Usually need to antibiotics for Pseudomonas to prevent resistance. His chest x-ray has shown improvement. Probably can be discharged to the [facility] on Friday if all is stable. 10/16/2016 maximum temperature was 99.7. Patient does have some rhonchi but otherwise no respiratory difficulty. Plan for finishing antibiotic Friday. Recheck renal function tomorrow. 10/17/2016 patient remains unresponsive but moves spontaneously. No further fever. He has a little purulent drainage from the tracheostomy site that I think is just sputum that gets through the residual stoma there. We will try using a petrolatum gauze to get it to finish sealing off. Need to recheck his renal function. Should be ready for discharge tomorrow if all is stable. 10/18/2016 patient is afebrile. Chest x-ray is clear. Oxygen saturation 91% on 2 L. Tolerating bolus feedings. Should be ready to go back to the [facility] today. Can discontinue IV antibiotics. He is nevertheless subject to getting recurrent respiratory infections. I would recommend continuing using the CoughAssist machine at the correction twice daily long-term. Exam (Progress Note) - Constitutional Vitals: Period Temp Pulse Resp BP Sys/Plata Pulse Ox Last 24 Hr 96.4 F-99.6 F 60-113 16-24 108-129/62-73 88-99 Exam: He has severe hypoxic brain injury and is not responsive. He does look around with his eyes and move his arms from time to time. He is afebrile. Pupils were reactive. Face no longer red, throat clear. Neck supple. Tracheostomy site almost completely sealed, but still a small amount of cloudy drainage. Chest shows minimal rhonchi bilaterally, equal breath sounds. Heart normal rate rhythm no murmurs. Abdomen soft no masses. PEG tube in place and looks clean. Extremities no clubbing cyanosis or edema. Results - Labs CBC & BMP: 10/18/16 05:48 10/18/16 05:48 Lab Results: I have reviewed the past 24 hour labs - Diagnostic Findings Procedure: Chest x-ray: image reviewed by me (Lungs are now essentially clear) Assessment and Plan (1) Right lower lobe pneumonia Status: Acute Assessment and plan: Probably has a mild infiltrate at the right base. Agree with empiric antibiotics. Does not need bronchoscopy at this point. He has a pretty good cough it appears. 10/08/16 very mild pneumonia at worst. Probably could change to Ceftin per PEG tube and discharge tomorrow back to [facility] if chest x-ray is stable or better. 10/09/2016 he has some bibasilar pneumonia. Elevated white count. No fever. Continuing empiric antibiotics. Not ready to go back to correction as yet. I will plan bronchoscopy in the morning. Make a decision after that as to whether we can leave the trach out long-term. I certainly hope that we can do that. He should be able to breathe better with the trach out then with it and and capped. 10/10/2016 he has actually bibasilar pneumonia. On empiric antibiotics. Based on bronchoscopy findings today we need to replace his tracheostomy to adequately clear his airways. 10/11/2016 we will continue treating antibiotics and leave the tracheostomy out, as is his mother's request. Check cultures this weekend. If we can stop vancomycin we should. He has red man syndrome likely from that. 10/14/2016 clinically he is much improved with the pneumonia. Needs about 5 more days of tobramycin as it was just started yesterday. The Pseudomonas was only sensitive to aminoglycosides. 10/15/2016 radiographically improved. Still has some atelectasis at the right base. This is healthcare facility acquired and is Pseudomonas so needs antibiotics a couple more days. 10/16/2016 clinically improved. Complete antibiotics Friday. 10/17/2016 radiographically improved. Will finish a week's worth of anti- pseudomonal antibiotics tomorrow. Can return to [facility] if afebrile. He will be at risk for recurrent episodes of pneumonia going forward due to his decreased level of consciousness. Patient's mother has declined putting the tracheostomy back in, which is understandable at this point. It would not prevent pneumonias. 10/18/2016 this has resolved radiographically. Can stop antibiotics and returning to the correction. Current Visit: Yes Qualifiers: Pneumonia type: due to Pseudomonas Qualified Code(s): J15.1 - Pneumonia due to Pseudomonas (2) Urinary tract infection Status: Acute Assessment and plan: Abnormal urinalysis suggesting urinary tract infection. Cultures pending. Previously grew Pseudomonas that was sensitive to Zosyn. Agree with Zosyn this time. 10/08/16 I do not see a report on the urine culture. 10/09/2016 only grew some yeast. Cover with Diflucan. Current Visit: No Qualifiers: Urinary tract infection type: catheter-associated UTI Indwelling urinary catheter type: indwelling urethral catheter Encounter type: initial encounter Qualified Code(s): T83.511A - Infection and inflammatory reaction due to indwelling urethral catheter, initial encounter; N39.0 - Urinary tract infection , site not specified (3) Sacral decubitus ulcer, stage IV Status: Chronic Assessment and plan: Dr. Molina has seen him for this. He feels his decubitus ulcers are clean. Just needs wound care while here. 10/09/2016 continuing wound care. 10/10/16 followed by wound care and surgery as needed. 10/11/16 this has been stable. 10/14/2016 continues to be followed by wound care. 10/15/2016 wound care following. 10/16/2016 will need long-term follow-up of surgery. Dr. Molina has been following 10/17/2016 will need to be followed up at the [facility] by the wound care nurse there. Dr. Molina will be available to follow here as needed. 10/18/2016 wound care nurse to follow at the correction and be in touch with Dr. Molina if complications arise. Current Visit: No (4) Anoxic brain injury Status: Chronic Assessment and plan: Patient is being fed through PEG tube. He is not responsive. His tracheostomy is now out. If he can control his secretions with cough then he will not need to have the trach replaced. If his x-ray gets worse or is not able to clear secretions, then the tracheostomy could be replaced. 10/08/16 it does appear that he can defend his airway. Has a good cough. Have added cough assist. This could be continued at the nursing center. 10/09/2016 he has a pretty good cough. Remains to be seen how he will do with his pneumonia with his tracheostomy out. 10/10/2016 patient still not responsive. He has a vigorous cough but fails to clear secretions I think he continues to aspirate upper airway secretions. We need to get his tracheostomy replaced. 10/11/2016 decision has been made not to replace the tracheostomy, as his mother does not want it done. We would use CoughAssist and do nasopharyngeal suctioning as required. 10/14/2016 no change in mental status. Still looks around but does not make contact. 10/16/2016 remains unresponsive. 10/17/2016 this is apparently a permanent hypoxic injury. He does not communicate with his environment. This would be a persistent vegetative state. 10/18/2016 no change in mental status. Current Visit: No
--- NOTE | 2016-10-18 09:39 | XRay Report ---
XR chest 1V portable Indication: Pneumonia Comparison: Chest x-ray October 17, 2016 Technique: Single frontal view of the chest Findings: Cardiomediastinal silhouette is stable in configuration. Redemonstration of hazy consolidation of the lateral lower left lung consistent with pneumonia with mild elevation of left hemidiaphragm. Osseous and surrounding soft tissue structures appear grossly unchanged. IMPRESSION: Continued left lower lung pneumonia. PROCEDURE INTERPRETED AT [facility] DEPARTMENT OF RADIOLOGY Final Report Signed by: Dr Pako Garrison
--- NOTE | 2016-10-18 11:09 | Discharge Summary ---
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 He had a 4 month hospitalization at [facility] with mechanical ventilation and tracheostomy. He [facility] to a [facility]. He developed a urinary tract infection and sepsis a few weeks ago. He also has multiple decubitus ulcers. He was hospitalized here and then at [facility]. His pressure ulcers are better and clean according to Dr. Green the surgeon follows those. He was sent back from [facility] to [facility] and apparently there coughed his tracheostomy out and was sent her. Upon arrival, CXR showed a mild patchy infiltrate at the right lower lobe, his WBC was normal.He was admitted, we began sunctioning from his tracheostomy .Pulm saw in consultation. He was started empirically on antibiotics.He was fed through his peg tube.patient had a bronchoscopy,there is concern that he may not be able to adequately clear his airway so pulm recommended to replace trach but family refused.Urine culture positive for anderson tropicalis, he was treated with diflucan. His high sodium was corrected with free water and IV D5W.Bronchial washings grew Pseudomonas so he was treated with IV Zosyn and Tobramycin.He is nevertheless subject to getting recurrent respiratory infections.Pulm recommended to continue using the Cough Assist machine at the [facility] twice daily long-term.His sacral decubitus ulcer stage 4 was being looked after by the wound care Nurse.His vitals are stable and he is ready to be dcd back to the [facility] today. - Time spent with patient Time with patient DS: Greater than 30 minutes (Time spent: 40mins) Diagnosis - Discharge Diagnosis (1) Right lower lobe pneumonia Status: Acute (2) Anoxic brain injury Status: Chronic (3) Urinary tract infection Status: Acute (4) Sacral decubitus ulcer, stage IV Status: Chronic (5) Debility Status: Acute Specialty Discharge - Follow Up or Referrals Discharge Plan - Discharge Data Disposition: Disch/Xfer to Snf Condition at Discharge: Stable Discharge Diet: advance to your usual diet Activity: resume usual activities as tolerated - Discharge Medications Continue Acetamin/Codeine 120-12 mg/5Ml [Tylenol/Codeine Liquid] 12.5 ml PEG Q8HR PRN PRN Reason: Pain Acetaminophen Tab [Tylenol Tab] 650 mg PER TUBE Q4H PRN #0 tablet PRN Reason: fever, headache/body aches Albuterol/Ipratropium Neb [Duoneb] 3 ml RESP TX RT Q6H Ciprofloxacin 0.3% Oph Soln [Ciloxan 0.3% Oph Soln] 2 drop RIGHT EYE Q4HR bottle Lansoprazole Odt Tab [Prevacid Solutab] 30 mg PO DAILY tablet Metoprolol Tartrate Tab [Lopressor Tab] 50 mg PEG BID tablet levETIRAcetam TAB [Keppra Tab] 1,500 mg PEG BID tablet Diltiazem Tab [Cardizem Tab] 60 mg PO Q6H PRN #0 tablet PRN Reason: INCREASED HEART RATE Metoclopramide Tab [Reglan Tab] 5 mg PEG Q8H tablet Sodium Hypochlorite 0.25% Irr [Dakins 1/2 Strength 0.25% Soln] 1 applic TOP BID applic Discontinued Enoxaparin [Lovenox] 40 mg SUBCUT Q24H syringe Morphine Inj 3 mg IV BID PRN #0 syringe PRN Reason: Pain cefTAZidime [Fortaz] 1,000 mg IV Q12H vial - Follow Up or Referral - Forms/Instructions Instructions: Urinary Tract Infection in Men (DC), Conjunctivitis (DC), Community-acquired Pneumonia (DC) Additional Discharge Instructions: follow with PCP Exam - Constitutional Vitals: Period Temp Pulse Resp BP Sys/Plata Pulse Ox Last 24 Hr 96.4 F-99.6 F 60-113 16-24 108-129/62-73 88-99 General appearance: no acute distress - Respiratory Respiratory exam: Present: clear to auscultation bilaterally - Cardiovascular Cardiovascular exam: Present: regular rate and rhythm - GI/Abdominal GI/Abdominal exam: Present: normal bowel sounds - Extremities Exam Extremities exam: Present: other (quadriplegic) Discharge Results Procedures and tests throughout hospitalization: Pending Orders 10/15/16 15:08 Blood Culture Routine 10/21/16 04:00 Basic Metabolic Panel MOTH Labs on day of discharge: Labs from last 24 hours 10/18/16 10/18/16 10/18/16 05:48 05:48 05:42 WBC 13.3 H D RBC 4.53 Hgb 11.5 L Hct 37.4 L MCV 82.6 L MCH 25 L MCHC 30.7 L RDW 16.7 Plt Count 426 H MPV 10.4 Neut % (Auto) 95.3 H Lymph % (Auto) 3.6 L [place] % (Auto) 0.5 L Eos % (Auto) 0.0 Baso % (Auto) 0.1 Neut # (Auto) 12.7 H Lymph # (Auto) 0.5 L [place] # (Auto) 0.1 L Eos # (Auto) 0.0 Baso # (Auto) 0.0 Total Counted 100 Immature Gran % 0.5 Nucleated RBC % 0.0 Immature Gran # 0.06 Segmented Neutrophils 95 H Lymphocytes 5 L Nucleated RBCs # 0.00 Platelet Estimate Adequate Hypochromasia 1+ Ovalocytes Slight Morphology Comment Sodium 139 Potassium 4.1 Chloride 101 Carbon Dioxide 26 Anion Gap 16.1 H BUN 17 Creatinine 0.70 GFR Calculation 141 BUN/Creatinine Ratio 24.00 H Glucose 207 H POC Glucose 209 H Calculated Osmolality 284.5 Calcium 8.8 Tobramycin Trough 10/18/16 10/17/16 10/17/16 00:05 19:37 17:27 WBC RBC Hgb Hct MCV MCH MCHC RDW Plt Count MPV Neut % (Auto) Lymph % (Auto) [place] % (Auto) Eos % (Auto) Baso % (Auto) Neut # (Auto) Lymph # (Auto) [place] # (Auto) Eos # (Auto) Baso # (Auto) Total Counted Immature Gran % Nucleated RBC % Immature Gran # Segmented Neutrophils Lymphocytes Nucleated RBCs # Platelet Estimate Hypochromasia Ovalocytes Morphology Comment Sodium Potassium Chloride Carbon Dioxide Anion Gap BUN Creatinine GFR Calculation BUN/Creatinine Ratio Glucose POC Glucose 101 113 H Calculated Osmolality Calcium Tobramycin Trough < 0.3 10/17/16 12:25 WBC RBC Hgb Hct MCV MCH MCHC RDW Plt Count MPV Neut % (Auto) Lymph % (Auto) [place] % (Auto) Eos % (Auto) Baso % (Auto) Neut # (Auto) Lymph # (Auto) [place] # (Auto) Eos # (Auto) Baso # (Auto) Total Counted Immature Gran % Nucleated RBC % Immature Gran # Segmented Neutrophils Lymphocytes Nucleated RBCs # Platelet Estimate Hypochromasia Ovalocytes Morphology Comment Sodium Potassium Chloride Carbon Dioxide Anion Gap BUN Creatinine GFR Calculation BUN/Creatinine Ratio Glucose POC Glucose 173 H Calculated Osmolality Calcium Tobramycin Trough Preliminary micro results at discharge 10/15/16 15:08 Blood Culture - Preliminary Blood No growth at 1 day 10/15/16 15:08 Blood Culture - Preliminary Blood No growth at 1 day DS: Provider Date of admission: 10/07/16 01:52 Primary care physician: . No PCP Attending physician on admission: Stoney Thompson MD Consults: 10/07/16 02:02 Consult to Pharmacy [CONS] Routine Reason for Pharmacy Consult: Dose/Manage Vancomycin 10/07/16 03:44 Consult to Dietitian [CONS] Routine Reason for Dietitian: Dietary Consult Consult Comment: also tube feeding recommendations 10/07/16 09:00 Consult to Physician [CONS] Routine Comment: large sacral decubitus, and other skin breakdown Consulting Provider: Kuldeep Molina Person Notified: CARMEN Date Notified: 10/07/16 Time Notified: 09:05 10/07/16 09:55 Consult to Wound Care [facility] [CONS] Routine Reason for Wound Care: Wound Care Management 10/07/16 10:20 Consult to Physician [CONS] Routine Comment: [facility]ency pt, admitted with aspiration pna Consulting Provider: Devon Mai Person Notified: AWARE Date Notified: 10/07/16 Time Notified: 14:56 Consult Notification Comment: Left message with Laurel called again @ 12:41 10/10/16 09:47 Consult to Physician [CONS] Routine Comment: Needs tracheostomy replaced. Out about 3 days. Consulting Provider: Anders Andrews Consult to Specialist Group: ENT When should Consulting Provider be notified: Now Person Notified: Vincent Date Notified: 10/10/16 Time Notified: 10:10 10/13/16 09:25 Consult to Pharmacy [CONS] Routine Reason for Pharmacy Consult: Dose/Manage Tobramycin Discharging clinician: Mi Pate MD
[2016-10-18 11:46] VITALS: BP 128/78
== END 2016-10-18 12:11 | DRG 177 ==
LOC: EDUNIT# → EDBD → N.ED 23:36 → N.EDINP 10-07 01:52 → SUATTDRO 10-07 01:52 → N.5E 10-07 02:40
PROVIDERS: ADMIT Internal Medicine Infectious Disease; ATTEND Internal Medicine

== ENCOUNTER 2016-10-23 22:00 | Inpatient (IN) ==
[2016-10-23] MEDS ORDERED: VECURONIUM 10 MG VIAL IV ONE (22:08)
[2016-10-23] MEDS ORDERED: ACETAMINOPHEN 325 MG SUPP RECTAL ONE (22:11)
[2016-10-23] MEDS ORDERED: VECURONIUM 10 MG VIAL IV STA (22:24)
[2016-10-23] MEDS ORDERED: SODIUM CHLORIDE 0.9% 2,200 ML IV ONE (22:43)
--- NOTE | 2016-10-23 22:54 | Emergency Department Note ---
Pascual Eid Emily, am scribing for, and in the presence of, hGassan Acosta MD 22: 52. Dave Eid Charles R, MD, personally performed the services described in this documentation, ascribed by Fatimah Garner in my presence, and it is both accurate and complete . Arrival - Arrival Chief Complaint: Fever ED Nursing Triage Note: C/O Pt was seen and treated at [facility] for Respiratory distress/failure. Pt was found to have elevated temp of 105 rectally. Pt was discharged from hospital last week Mode of Arrival: Stretcher Limitations: Language Barrier (nonverbal), Physical Limitation Source: Old Records Reviewed, RN Notes Reviewed Time Seen by Provider: 10/23/16 22:10 - History of Present Illness HPI Narrative: Pt is a 41 y/o male who was transferred to ED from [facility] in [place], [place] , for further evaluation of respiratory/failure and fever of 105 rectally. Pt' s fever in ED is 103.3. Pt is quadriplegic from anoxic brain injury, is nonverbal and has a partially closed trach along with peg tube. Pt's visit previous he had a "bad UTI." Onset (ago): hour(s) Consistency: constant Severity: severe Severity scale (1-10): 10 Quality: other Allergies/Adverse Reactions: Allergies Allergy/AdvReac Type Severity Reaction Status Date / Time carisoprodol [From Soma] Allergy Unknown/Unable Verified 09/02/16 18:16 to obtain Home Medications: Home Medications Medication Instructions Recorded Confirmed Type Acetamin/Codeine 120-12 mg/5Ml 12.5 ml PEG Q8HR PRN 09/03/16 10/23/16 History [Tylenol/Codeine Liquid] Acetaminophen Tab [Tylenol Tab] 650 mg PER TUBE Q4H PRN #0 tablet 09/10/1610/23 Rx Albuterol/Ipratropium Neb [Duoneb] 3 ml RESP TX RT Q6H 09/10/16 10/23/16 Rx Ciprofloxacin 0.3% Oph Soln 2 drop RIGHT EYE Q4HR bottle 09/10/16 10/23/16 Rx [Ciloxan 0.3% Oph Soln] Diltiazem Tab [Cardizem Tab] 60 mg PO Q6H PRN #0 tablet 09/10/16 10/23/16 Rx Lansoprazole Odt Tab [Prevacid 30 mg PO DAILY tablet 09/10/16 10/23/16 Rx Solutab] Metoclopramide Tab [Reglan Tab] 5 mg PEG Q8H tablet 09/10/16 10/23/16 Rx Metoprolol Tartrate Tab [Lopressor 50 mg PEG BID tablet 09/10/16 10/23/16 Rx Tab] Sodium Hypochlorite 0.25% Irr 1 applic TOP BID applic 09/10/16 10/23/16 Rx [Dakins 1/2 Strength 0.25% Soln] levETIRAcetam TAB [Keppra Tab] 1,500 mg PEG BID tablet 09/10/16 10/23/16 Rx Review of System - Review of System ROS unobtainable: other (non verbal) Medical,Surgical,& Family Hx - Medical History Cardio: History of: Cardiac Dysrhythmia (afib), Hypertension Neurology: History of: Neurological Problems (quadraplegia from an anoxic brain injury; significant flexion contractures) Respiratory: History of: COPD, Obstructive Sleep Apnea, Respiratory Problems ( trach) - Family History Family History: Reports;: Family Hypertension (moms, mom) - Social History Smoking Status: Unknown if ever smoked Frequency of Alcohol Use: Unknown Type of Drug Use: Unknown Marital Status: Single 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: 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 bound Exam Vital Signs: Vital Signs Temperature 103.4 F H 10/23/16 22:33 Pulse Rate 165 H 10/23/16 22:58 Respiratory Rate 20 10/23/16 22:58 Blood Pressure 151/90 10/23/16 22:58 O2 Sat by Pulse Oximetry 100 10/23/16 22:58 - Head Head exam: Present: atraumatic, normocephalic - Neck Neck exam: Present: other (trach partially closed with thick pus) - Chest Chest inspection: Present: symmetric chest wall rise - Respiratory Respiratory exam: Absent: normal lung sounds bilaterally (decreased especially in left) - Cardiovascular Cardiovascular exam: Present: tachycardia, normal heart sounds - Abdominal Exam Abdominal exam: Present: soft, other (peg tube) - Rectal Exam Rectal exam: Present: other (sacral decubitus) - Extremities Exam Extremities exam: Absent: full ROM (flexion contractures) - Neurological Exam Neurological exam: Present: CN II-XII intact. Absent: alert, oriented X3, normal gait (quadriplegic) - Skin Skin exam: Present: warm, diaphoresis Course - Consultations Consultation #1: Hospitalist will admit patient Time: 22:58 Procedures - Central Line Placement Right Femoral Prep: mask, gown, gloves Central Line Prep: Chlorhexidine scrub Central Line Lumen Inserted: triple Post Procedure: sutured in place, good blood return, all ports aspirated, flushed, capped, sterile dressing applied Patient Tolerated Procedure: well, no complications Complications: none Results - Labs CBC & BMP: 10/23/16 22:28 10/23/16 22:28 Lab Results: I have reviewed the patients labs Labs: All labs and x-rays reviewed from previous facility Laboratory Tests 10/23/16 22:40 ABG pH 7.311 L ABG pCO2 52.3 H ABG pO2 97.0 H Laboratory Tests 10/23/16 22:28 Urine pH 5.0 Ur Specific [place] 1.027 Urine Protein 100 Urine Blood Small Urine Urobilinogen < 2.0 H Urine Leukocytes Moderate H Urine RBC 97 Urine WBC 47 Calcium Oxalate Crystal Occasional Urine Bacteria Occasional Urine Mucus Few - Diagnostic Findings Procedure: Chest x-ray: report reviewed by me (Endotracheal tube position appears within nml limits. No other significant change.) Critical Care Time Critical Care Time: Yes Total Critical Care Time: 60 Disposition Clinical Impression: Sinus tachycardia, Fever, Hypoxic brain injury, Sepsis, Aspiration pneumonia, Stage IV decubitus ulcer, Dyspnea, Debility, Tachycardia, Anoxic brain injury, Urinary tract infection, Respiratory distress, acute, Leukocytosis, Hypernatremia, UTI (urinary tract infection) Case discussed with: patient's physician Disposition: Still a Patient Condition: Critical Time of Disposition: 22:59
[2016-10-23 22:58] LABS: ABG Base Excess -0.8 MMOL/L (-2.5-2.5); ABG HCO3 23.7 MMOL/L (20-26); ABG Oxygen Saturation 95.3 % (95-100); ABG PCO2 52.3 MM HG (35-48); ABG PH 7.311 (7.35-7.45); ABG TCO2 23.3 MMOL/L (23-27)
[2016-10-23] MEDS ORDERED: SODIUM CHLORIDE 0.9% 1,000 ML IV SCH (23:00)
[2016-10-23] MEDS ORDERED: LEVOFLOXACIN INJ 750 MG in PREMIX 1 EACH IV SCH (23:00)
[2016-10-23] MEDS ORDERED: VANCOMYCIN INJ 1,000 MG in SODIUM CHLORIDE 0.9% 250 ML IV SCH (23:00)
--- NOTE | 2016-10-23 23:08 | XRay Report ---
XR chest 1V portable Indication: Endotracheal tube position Comparison: 23 Oct 2016 at 7:14 PM Findings: The heart and mediastinum are normal in size and configuration. Endotracheal tube is retracted slightly. The pulmonary vascularity is prominent with interstitial densities similar to previous exam. No lung infiltrates, effusions, pneumothorax or other abnormality is demonstrated. Impression: Endotracheal tube position appears within normal limits. No other significant change. PROCEDURE INTERPRETED AT [facility] DEPARTMENT OF RADIOLOGY Final Report Signed by: Dr. Eduardo Stafford
[2016-10-23 23:12] LABS: Apearance,Urine CLOUDY (Clear); Bacteria,Urine Occasional /HPF (Few); Bilirubin,Urine Negative (Negative); Blood, Urine Small mg/dL (Negative); Calcium Oxalate Crystals,Urine Occasional /HPF (Few); Glucose,Urine (UA) Negative (Negative); Ketones,Urine Negative (Negative); Mucus,Urine Few /LPF (Occasional); Nitrite,Urine Negative (Negative); Protein,Urine 100 MG/DL; RBC,Urine 97 /HPF (0-4); Urine Color Amber (Yellow); Urine Specific Gravity 1.027 (1.001-1.035); Urine Urobilinogen < 2.0 EU/DL (0.2-1.0); WBC,Urine 47 /HPF (0-6)
[2016-10-23 23:16] LABS: Basophils # 0.1 10*3/uL (0.0-0.2); Basophils % 0.2 % (0.0-0.8); Hematocrit 41.5 VOL% (42.0-52.0); Immature Granulocytes % 1.3 %; Immature Granulocytes Absolute 0.48 #; Lactic Acid 2.2 MMOL/L (0.4-2.0); Lymphocytes # 2.4 10*3/uL (1.4-4.0); Lymphocytes % 6.5 % (21.2-54.2); Mean Corpuscular HGB Conc 29.7 GM/DL (32-36); Mean Corpuscular Hemoglobin 25 PG (27-34); Mean Corpuscular Volume 84.5 FL (87-102); Mean Platelet Volume 11.2 FL (9.6-12.0); Monocytes # 2.3 10*3/uL (0.11-0.8); Monocytes % 6.2 % (1.7-12.7); Neutrophils # 31.5 10*3/uL (1.4-7.4); Neutrophils % 85.8 % (38.7-73.9); Platelet Count 448 T/CUMM (130-400); Red Blood Count 5.02 MC/CUMM (3.8-5.5); Red Cell Distribution Width 17.2 % (9.3-17.3); White Blood Count 36.7 T/CUMM (4-12)
[2016-10-23 23:17] LABS: Albumin 2.5 G/DL (3.4-5.0); Bilirubin,Total 0.4 MG/DL (0.2-1.0); Calcium 8.3 MG/DL (8.5-10.1); Hemoglobin 12.6 GM/DL (14.0-18.0); Osmolality,Calculated 319.6 MOS/KG (273-304); Potassium 4.9 MMOL/L (3.5-5.1); Total Protein 6.2 G/DL (6.4-8.3)
[2016-10-23] MEDS ORDERED: MEROPENEM 1,000 MG VIAL IV ONE (23:27)
[2016-10-23] MEDS ORDERED: VANCOMYCIN 1,000 MG VIAL ONE (23:27)
[2016-10-23] MEDS ORDERED: SODIUM CHLORIDE 0.9% 250 ML IV ONE (23:27)
[2016-10-23] MEDS ORDERED: SODIUM CHLORIDE 0.9% 100 ML IV ONE (23:27)
[2016-10-23] MEDS ORDERED: LEVOFLOXACIN INJ 150 ML IV ONE (23:27)
[2016-10-23] MEDS ORDERED: MORPHINE 2 MG/1 ML SYRINGE IV PRN (23:36)
[2016-10-23] MEDS ORDERED: ALBUTEROL 2.5 MG/3 ML NEB RESP TX PRN (23:36)
[2016-10-23] MEDS ORDERED: ONDANSETRON 4 MG/2 ML VIAL IV PRN (23:36)
[2016-10-23] MEDS: MEROPENEM 1,000 MG in SODIUM CHLORIDE 0.9% 100 ML IV SCH (23:41)
[2016-10-23] MEDS ORDERED: ACETAMINOPHEN/CODEINE 120-12 MG/5 ML 12.5 ML UDCUP PEG PRN (23:50)
[2016-10-23] MEDS ORDERED: ACETAMINOPHEN 325 MG TABLET PER TUBE PRN (23:50)
--- NOTE | 2016-10-23 23:56 | Hospitalist History & Physical ---
Assessment and Plan - Time spent with patient Time spent with patient: Greater than 30 minutes (1) Sepsis Status: Acute Assessment and plan: Admit to ICU blood, urine and sputum cultures central line placement lactic acid more than 2.... recheck after fluid bolus no hypotension source unclear at this time. Could be UTI or pneumonia or sacral decubitus ulcer or a combination of the above. Previous cultures show Pseudomonas in Urine and Sputum, therefore started on tobramycin. Recent hospitalization so must consider healthcare associated pneumonia therefore vancomycin and Merrem added. Consult pulmonary and infectious disease Current Visit: Yes Qualifiers: Sepsis type: sepsis due to unspecified organism Qualified Code(s): A41.9 - Sepsis, unspecified organism (2) UTI (urinary tract infection) Status: Acute Current Visit: Yes Qualifiers: Urinary tract infection type: catheter-associated UTI Indwelling urinary catheter type: indwelling urethral catheter Encounter type: initial encounter Qualified Code(s): T83.511A - Infection and inflammatory reaction due to indwelling urethral catheter, initial encounter; N39.0 - Urinary tract infection , site not specified (3) Tachycardia Status: Acute Current Visit: Yes (4) Stage IV decubitus ulcer Status: Acute Current Visit: Yes Qualifiers: Pressure ulcer location: sacral region Qualified Code(s): L89.154 - Pressure ulcer of sacral region, stage 4 (5) Leukocytosis Status: Acute Current Visit: Yes (6) Hypoxic brain injury Status: Chronic Current Visit: Yes (7) Pseudomonal pneumonia Status: Acute Current Visit: Yes Qualifiers: Laterality: bilateral (8) Sacral decubitus ulcer, stage IV Status: Chronic Current Visit: No (9) Acute respiratory failure Status: Acute Current Visit: Yes Qualifiers: Respiratory failure complication: hypoxia Qualified Code(s): J96.01 - Acute respiratory failure with hypoxia (10) Functional quadriplegia Status: Chronic Current Visit: Yes History of Present Illness Chief complaint: Sepsis, respiratory failure History of present illness: Mr. Arreola is a 41 year old male transferred from in [facility] with respiratory failure and Sepsis. He was recently hospitalized and discharged on the . At that time he was treated for Pseudomonas pneumonia with tobramycin and Zosyn. His previous cultures show Pseudomonas in the urine and sputum. He was seen in consultation by pulmonary and general surgery. The patient is a large sacral decubitus wound as well as a previous tracheostomy. There is concern that the patient may not be able to clear secretions well however the family declined having the tracheostomy replaced. This evening he was transferred to [place] emergency department from an outlying hospital in [facility] with acute respiratory failure and presumed sepsis with severe tachycardia and fever of 105. Patient has been intubated and sedated and is unable to provide any history. There are no family members present at this time. The history is taken from the emergency room physician and the records sent with him from the ER in [place]. Patient is being admitted to the hospitalist service to the intensive care unit for treatment of sepsis. The underlying cause is not yet clear. The patient appears to have urinary tract infection as well as pneumonia in the presence of sacral decubitus ulcer as of the third possible source. His home medications were reviewed and reconciled. The patient is a full code. Further recommendations will depend on his response to therapy. Home Medications Medication Instructions Recorded Confirmed Type Acetamin/Codeine 120-12 mg/5Ml 12.5 ml PEG Q8HR PRN 09/03/16 10/23/16 History [Tylenol/Codeine Liquid] Acetaminophen Tab [Tylenol Tab] 650 mg PER TUBE Q4H PRN #0 tablet 09/10/1610/23 Rx Albuterol/Ipratropium Neb [Duoneb] 3 ml RESP TX RT Q6H 09/10/16 10/23/16 Rx Ciprofloxacin 0.3% Oph Soln 2 drop RIGHT EYE Q4HR bottle 09/10/16 10/23/16 Rx [Ciloxan 0.3% Oph Soln] Diltiazem Tab [Cardizem Tab] 60 mg PO Q6H PRN #0 tablet 09/10/16 10/23/16 Rx Lansoprazole Odt Tab [Prevacid 30 mg PO DAILY tablet 09/10/16 10/23/16 Rx Solutab] Metoclopramide Tab [Reglan Tab] 5 mg PEG Q8H tablet 09/10/16 10/23/16 Rx Metoprolol Tartrate Tab [Lopressor 50 mg PEG BID tablet 09/10/16 10/23/16 Rx Tab] Sodium Hypochlorite 0.25% Irr 1 applic TOP BID applic 09/10/16 10/23/16 Rx [Dakins 1/2 Strength 0.25% Soln] levETIRAcetam TAB [Keppra Tab] 1,500 mg PEG BID tablet 09/10/16 10/23/16 Rx Allergies Allergy/AdvReac Type Severity Reaction Status Date / Time carisoprodol [From Soma] Allergy Unknown/Unable Verified 09/02/16 18:16 to obtain Medical,Surgical,& Family Hx - Medical History Cardio: History of: Cardiac Dysrhythmia (afib), Hypertension Neurology: History of: Seizures, Neurological Problems (quadraplegia from an anoxic brain injury; significant flexion contractures) Respiratory: History of: COPD, Obstructive Sleep Apnea, Pneumonia, Respiratory Problems (trach) - Surgical History Additional Surgical History: Trach, PEG, Sacral Decubitus ulcer debridement. 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 Intubated and sedated. Tachycardic and diaphoretic. Head: Normocephalic, atraumatic. Ears, Nose and Throat System: No pain or tenderness. No epistaxis or discharge. Endotracheal tube in place Neck: Supple, without adenopathy, No jugular venous distention. No thyromegaly, previous tracheostomy site noted with purulent, thick, tenacious sputum. Respiratory System: Chest rhonchi bilaterally to auscultation. Cardiovascular System: Heart with tachycardic rate and rhythm. No murmur. GI System: Abdomen soft, nontender. Normo active bowel sounds present. Musculoskeletal System: limbs with no pedal edema. Full distal pulses. Foot drop, heel protectors in place. Neurological System: Unable to assess secondary to sedation and paralytic use Psychiatric System: Unable to assess secondary to endotracheal intubation. Skin exam: Stage IV sacral decubitus ulcer is large without significant purulent discharge or foul smell. system: Mcfadden catheter in place with dark urine. Results - Labs CBC & BMP: 10/23/16 22:28 10/23/16 22:28 Lab Results: I have reviewed the past 24 hour labs - Diagnostic Findings Procedure: Chest x-ray: image reviewed by me, report reviewed by me Sepsis - Sepsis Classification of Sepsis: Severe Sepsis Sepsis documentation within 6 hours of presentation: fluid change - Physical Exam Respiratory exam: rhonchi Capillary Refill: Less Than 3 Seconds Peripheral pulses: Radial (L): 5+, Radial (R): 5+, Dorsalis Pedis (L) PM: 5+, Dorsalis Pedis (R) PM: 5+, Posterior Tibialis (L): 5+, Posterior Tibialis (R): 5 + Cardiovascular exam: tachycardia Skin exam: mottled
[2016-10-24 00:45] LABS: Band Neutrophils 3 % (0-10); Lymphocytes 5 % (20-55); Segmented Neutrophils 84 % (50-85); Total Cells Counted 100
[2016-10-24 00:46] LABS: Anisocytosis 1+; Platelet Estimate Adequate
[2016-10-24] MEDS: ALBUTEROL/IPRATROPIUM 3 ML NEB RESP TX SCH ×6 (00:48→19:11)
[2016-10-24] MEDS: PROPOFOL 1,000 MG/100 ML BOTTLE IV SCH ×2 (01:12→22:47)
[2016-10-24] MEDS: ENOXAPARIN 40 MG/0.4 ML SYRINGE SUBCUT SCH ×2 (01:41→22:47)
[2016-10-24] MEDS: METOCLOPRAMIDE 5 MG TABLET PEG SCH ×3 (01:41→16:19)
[2016-10-24] MEDS: DEXTROSE 5% NACL 0.45% 1,000 ML IV SCH ×4 (01:57→22:47)
[2016-10-24] MEDS: TOBRAMYCIN INJ 120 MG in SODIUM CHLORIDE 0.9% 100 ML IV SCH ×3 (01:59→17:00)
[2016-10-24] MEDS: CIPROFLOXACIN 0.3% OPH SOLN 2.5 ML BOTTLE RIGHT EYE SCH ×6 (02:01→21:17)
[2016-10-24 02:09] LABS: Basophils % 0.1 % (0.0-0.8); Hematocrit 36.8 VOL% (42.0-52.0); Immature Granulocytes % 0.9 %; Immature Granulocytes Absolute 0.22 #; Lymphocytes # 2.2 10*3/uL (1.4-4.0); Lymphocytes % 8.5 % (21.2-54.2); Mean Corpuscular HGB Conc 29.3 GM/DL (32-36); Mean Corpuscular Hemoglobin 25 PG (27-34); Mean Corpuscular Volume 86.2 FL (87-102); Mean Platelet Volume 11.2 FL (9.6-12.0); Monocytes # 1.3 10*3/uL (0.11-0.8); Monocytes % 5.1 % (1.7-12.7); Neutrophils # 21.7 10*3/uL (1.4-7.4); Neutrophils % 85.4 % (38.7-73.9); Platelet Count 354 T/CUMM (130-400); Red Blood Count 4.27 MC/CUMM (3.8-5.5); Red Cell Distribution Width 17.1 % (9.3-17.3); White Blood Count 25.5 T/CUMM (4-12)
[2016-10-24 02:19] LABS: Albumin 2.2 G/DL (3.4-5.0); Bilirubin,Total 0.4 MG/DL (0.2-1.0); Calcium 7.8 MG/DL (8.5-10.1); Hemoglobin 11.1 GM/DL (14.0-18.0); Magnesium 2.5 MG/DL (1.8-2.4); Osmolality,Calculated 318.4 MOS/KG (273-304); Potassium 4.5 MMOL/L (3.5-5.1); Total Protein 5.5 G/DL (6.4-8.3)
[2016-10-24 03:49] LABS: ABG Base Excess -0.4 MMOL/L (-2.5-2.5); ABG HCO3 24.1 MMOL/L (20-26); ABG Oxygen Saturation 98.9 % (95-100); ABG PCO2 40.1 MM HG (35-48); ABG PH 7.393 (7.35-7.45); ABG TCO2 21.9 MMOL/L (23-27); Allen Test Positive; Pt O2 Delivery Device Ventilator
[2016-10-24] MEDS: DILTIAZEM 60 MG TABLET PO PRN ×2 (03:53→09:07)
[2016-10-24 04:22] LABS: Anisocytosis 1+; Band Neutrophils 1 % (0-10); Lymphocytes 5 % (20-55); Segmented Neutrophils 92 % (50-85); Total Cells Counted 100
[2016-10-24 04:23] LABS: Platelet Estimate Normal
[2016-10-24] MEDS: MEROPENEM 1,000 MG in SODIUM CHLORIDE 0.9% 100 ML IV SCH ×3 (06:01→22:29)
--- NOTE | 2016-10-24 06:37 | Pulmonology Consult Note ---
Assessment and Plan (1) Urinary tract infection Status: Acute Assessment and plan: He has pyuria and an indwelling catheter. Cultures are pending. Unclear as yet whether the UTI or pneumonia on the initiating event of sepsis. Await cultures. Agree with broad-spectrum antibiotics including tobramycin. Watch renal function. Current Visit: No Qualifiers: Urinary tract infection type: catheter-associated UTI Indwelling urinary catheter type: indwelling urethral catheter Encounter type: initial encounter Qualified Code(s): T83.511A - Infection and inflammatory reaction due to indwelling urethral catheter, initial encounter; N39.0 - Urinary tract infection , site not specified (2) Sepsis Status: Acute Assessment and plan: Patient has been given IV fluids. Blood pressure now stable but he still tachycardic and febrile. Await cultures. Continue broad-spectrum antibiotics. Changed to D5W because of hypernatremia Current Visit: Yes Qualifiers: Sepsis type: sepsis due to unspecified organism Qualified Code(s): A41.9 - Sepsis, unspecified organism (3) Anoxic brain injury Status: Chronic Assessment and plan: From a remote event. Mental status is been the same now for about 6 months. He has some spontaneous movement but no purposeful movement. He is unresponsive. Basically a persistent vegetative state it appears. Current Visit: Yes (4) Sacral decubitus ulcer, stage IV Status: Chronic Assessment and plan: We need to have Dr. Molina to review. Current Visit: No (5) Right lower lobe pneumonia Status: Acute Assessment and plan: Does have some mild bibasilar infiltrates. Not clear if this represents pneumonia. Agree with coverage for that however. Await cultures. Current Visit: No Qualifiers: Pneumonia type: due to Pseudomonas Qualified Code(s): J15.1 - Pneumonia due to Pseudomonas (6) Acute respiratory failure Status: Acute Assessment and plan: Patient on ventilator. Reduce FiO2 to 70%. Will need to make a decision about tracheostomy in a few days. One of the problems earlier was that the residential where he had been would not take him back with the tracheostomy in place. Current Visit: Yes Qualifiers: Respiratory failure complication: hypoxia Qualified Code(s): J96.01 - Acute respiratory failure with hypoxia (7) Functional quadriplegia Status: Chronic Assessment and plan: Patient does move arms and legs from time to time but not purposefully. Current Visit: Yes History of Present Illness Chief complaint: Respiratory failure History of present illness: Mr. Arreola is a 41 year old male who has a history of hypoxic brain injury. He is a resident at a residential in [place]. He was here recently after coughing out his tracheostomy tube. He had pneumonia. We treated him. We recommended replacing the tracheostomy tube but his mother declined. He improved with antibiotics and [facility]ist. He was sent back to the residential. Apparently he became worse with fever and respiratory distress and was intubated prior to transfer here. He has some bibasilar infiltrates on x-ray but they do not look severe. He has pyuria. He also has a chronic cycle decubitus ulcer that on last check was clean. Likely has sepsis from either pneumonia or urinary tract infection. At the present time he is on the ventilator. Unable to obtain any history from him because of hypoxic brain injury as well. No family available. Home Medications Medication Instructions Recorded Confirmed Type Acetamin/Codeine 120-12 mg/5Ml 12.5 ml PEG Q8HR PRN 09/03/16 10/23/16 History [Tylenol/Codeine Liquid] Acetaminophen Tab [Tylenol Tab] 650 mg PER TUBE Q4H PRN #0 tablet 09/10/1610/23 Rx Albuterol/Ipratropium Neb [Duoneb] 3 ml RESP TX RT Q6H 09/10/16 10/23/16 Rx Ciprofloxacin 0.3% Oph Soln 2 drop RIGHT EYE Q4HR bottle 09/10/16 10/23/16 Rx [Ciloxan 0.3% Oph Soln] Diltiazem Tab [Cardizem Tab] 60 mg PO Q6H PRN #0 tablet 09/10/16 10/23/16 Rx Lansoprazole Odt Tab [Prevacid 30 mg PO DAILY tablet 09/10/16 10/23/16 Rx Solutab] Metoclopramide Tab [Reglan Tab] 5 mg PEG Q8H tablet 09/10/16 10/23/16 Rx Metoprolol Tartrate Tab [Lopressor 50 mg PEG BID tablet 09/10/16 10/23/16 Rx Tab] Sodium Hypochlorite 0.25% Irr 1 applic TOP BID applic 09/10/16 10/23/16 Rx [Dakins 1/2 Strength 0.25% Soln] levETIRAcetam TAB [Keppra Tab] 1,500 mg PEG BID tablet 09/10/16 10/23/16 Rx Allergies Allergy/AdvReac Type Severity Reaction Status Date / Time carisoprodol [From Soma] Allergy Unknown/Unable Verified 09/02/16 18:16 to obtain ROS unobtainable: due to endotracheal tube, due to mental status Exam (Pulmonay) H&P - Constitutional Vitals: Period Temp Pulse Resp BP Sys/Plata Pulse Ox Last 24 Hr 100.1 F-102.4 F 128-157 15-32 93-124/57-87 94-100 Exam: Temperature 100.1. Pulse in the 130s. Vital signs otherwise normal. Pupils are pinpoint. Orotracheal tube in place. Neck is supple. Tracheostomy site is sealed. Chest reveals some rhonchi in the bases equal breath sounds. Heart rapid rate regular rhythm no murmurs. Abdomen is soft PEG tube in place. Extremities no clubbing cyanosis edema. Medical,Surgical,& Family Hx - Medical History Cardio: History of: Cardiac Dysrhythmia (afib), Hypertension Neurology: History of: Seizures, Neurological Problems (quadraplegia from an anoxic brain injury; significant flexion contractures) Respiratory: History of: Asthma, COPD, Obstructive Sleep Apnea, Pneumonia, Respiratory Problems (trach) - Family History Family History: Reports;: Family Hypertension (moms, mom) - Social History Smoking Status: Unknown if ever smoked Frequency of Alcohol Use: Unknown Type of Drug Use: Unknown Results - Labs CBC & BMP: 10/24/16 01:46 10/24/16 01:46 Lab Results: I have reviewed the past 24 hour labs - Diagnostic Findings Procedure: Chest x-ray: image reviewed by me (Bibasilar infiltrates. ET tube in good position.)
--- NOTE | 2016-10-24 07:02 | XRay Report ---
Exam: XR chest 1V portable Date: 10/24/2016 4:00 AM Indication: Shortness of breath follow-up ventilator respiratory failure Comparison: 10/23/2016 Technical: AP portable Findings: Endotracheal tube at the level of mid clavicle. External cardiac leads are present. The heart is normal in size. Minimal alveolar density present in the right infrahilar region with tiny right effusion present. No pneumothorax. Impression: 1. Stable position of the endotracheal tube 2. Tiny right basilar effusion and alveolar infiltrate or edema or prominent cardiophrenic fat pad present. PROCEDURE INTERPRETED AT [facility] DEPARTMENT OF RADIOLOGY Final Report Signed by: Dr. Isaías Duffy
[2016-10-24 07:40] LABS: Allen Test Positive; Pt O2 Delivery Device Ventilator
[2016-10-24 07:41] LABS: ABG Base Excess 0.7 MMOL/L (-2.5-2.5); ABG PH 7.394 (7.35-7.45); ABG PO2 99.4 MM HG (80-95); ABG TCO2 23.2 MMOL/L (23-27)
[2016-10-24] MEDS: levETIRAcetam 500 MG TABLET PEG SCH ×2 (09:07→21:07)
[2016-10-24] MEDS: LANSOPRAZOLE ODT 30 MG TABLET PO SCH (09:07)
[2016-10-24] MEDS: METOPROLOL TARTRATE 50 MG TABLET PEG SCH ×2 (09:08→21:07)
--- NOTE | 2016-10-24 09:11 | Hospitalist Progress Note ---
Assessment and Plan (1) Sepsis Status: Acute Assessment and plan: 1)sepsis- BP stable, lactic acid better after IVF resuscitation. BCx and UCx pending. Source UTI v pneumonia v sacral decub (clean appearing last admit). On vanc, merrem, tobra. ID consulted. Indwelling tucker 2)acute resp failure- had trach in the past, family doesn't want one now because he won't be able to return to his NH. On 70% FIO2 3)hyprnatremia- on D51/2NS now. 4)nutrition- resume tube feeds as he does at [facility]. accuchecks timed with bolus feedings, SSI. he has not been diabetic. 5)sacral decub- Dr Molina to see 6)anoxic brain injury in the past- this has been his mental status for about 6 months. persistent vegetative state. Current Visit: Yes Qualifiers: Sepsis type: sepsis due to unspecified organism Qualified Code(s): A41.9 - Sepsis, unspecified organism (2) Bilateral pneumonia Status: Acute Current Visit: Yes (3) Urinary tract infection Status: Acute Current Visit: No Qualifiers: Urinary tract infection type: catheter-associated UTI Indwelling urinary catheter type: indwelling urethral catheter Encounter type: initial encounter Qualified Code(s): T83.511A - Infection and inflammatory reaction due to indwelling urethral catheter, initial encounter; N39.0 - Urinary tract infection , site not specified (4) Anoxic brain injury Status: Chronic Current Visit: Yes (5) Sacral decubitus ulcer, stage IV Status: Chronic Current Visit: No (6) Hypernatremia Status: Acute Current Visit: No (7) Acute respiratory failure Status: Acute Current Visit: Yes Qualifiers: Respiratory failure complication: hypoxia Qualified Code(s): J96.01 - Acute respiratory failure with hypoxia (8) Functional quadriplegia Status: Chronic Current Visit: Yes Hospitalist: Subjective Interval history: Mr Arreola is stable on vent. No events. Will restart tube feeds through PEG today. Exam - Constitutional Vitals: Period Temp Pulse Resp BP Sys/Plata Pulse Ox Last 24 Hr 99.1 F-102.4 F 128-157 12-32 93-124/57-87 94-100 General appearance: normal weight, no acute distress - Eye Eye exam: Absent: conjunctival injection Pupils: Present: constricted - Respiratory Respiratory exam: Present: clear to auscultation bilaterally - Cardiovascular Cardiovascular exam: Present: regular rate and rhythm - GI/Abdominal GI/Abdominal exam: Present: normal bowel sounds, soft. Absent: tenderness - Extremities Exam Extremities exam: Absent: edema - Neurological Exam Neurological exam: Present: other (persistent vegetative state. observed to move extremities purposelessly occassionally.) - Skin Skin exam: Present: warm, dry. Absent: rash Results - Labs CBC & BMP: 10/24/16 01:46 10/24/16 01:46 Lab Results: I have reviewed the past 24 hour labs
--- NOTE | 2016-10-24 09:12 | EKG Report ---
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
[2016-10-24] MEDS: SODIUM HYPOCHLORITE 0.25% IRRIG 473 ML BOTTLE TOP SCH ×2 (09:18→21:17)
--- NOTE | 2016-10-24 09:36 | Infectious Disease Consult ---
Assessment and Plan (1) Acute respiratory failure Status: Acute Assessment and plan: Possibly due to increased secretions, he has a history of this scenario in the past. His x-rays are consistent with pneumonia. He may have tracheitis as he has had in the past. Infection likely from Pseudomonas which has been identified in the past and has become increasingly resistant. Recommendations: 1. Agree with empiric broad-spectrum antibiotics including tobramycin 2. Follow-up on cultures; sputum has not been sent yet and he needs to be sent for Gram stain and culture 3. Monitor renal function closely on tobramycin Thank you very much for the consult. Will follow. Current Visit: Yes Qualifiers: Respiratory failure complication: hypoxia Qualified Code(s): J96.01 - Acute respiratory failure with hypoxia (2) Fever Status: Acute Assessment and plan: Think most likely infection at this point is urinary tract infection. Less likely pneumonia but tracheitis might be present. We need to rule out bloodstream infection. Cultures are pending and he will continue broad- spectrum antibiotics. Current Visit: Yes (3) Leukocytosis Status: Acute Assessment and plan: This is significant and is due to probable UTI plus or minus stress response related to respiratory failure. Will monitor. Current Visit: Yes (4) Sepsis Status: Acute Current Visit: Yes Qualifiers: Sepsis type: sepsis due to unspecified organism Qualified Code(s): A41.9 - Sepsis, unspecified organism (5) Stage IV decubitus ulcer Status: Acute Assessment and plan: I saw floaters of the ulcer and it is very large but very clean. No evidence of active infection. Continue local wound care. Current Visit: Yes Qualifiers: Pressure ulcer location: sacral region Qualified Code(s): L89.154 - Pressure ulcer of sacral region, stage 4 (6) Anoxic brain injury Status: Chronic Current Visit: Yes History of Present Illness Chief complaint: Fever History of present illness: Mr. Arreola is a 41 year old male who I know well from a previous admission at specialty. He was there from March last year to June with respiratory failure on the vent. He came off the vent and had a tracheostomy for prolonged period. The patient developed anoxic brain injury after respiratory failure from epiglottitis last March. I looked at his records from specialty again and he ended up being discharged from the in June to home on hospice. But it seems he ended up in a [facility] since then. The patient that specialty had chronic infection or other chronic positive cultures for Pseudomonas in sputum. He never had any infiltrates on chest x-ray but felt he had recurring tracheitis related to the presence of his tracheostomy tube. In reviewing the records here I see that the patient coughed out his tracheostomy tube last was early this month and family refused to have another one placed. He presented yesterday from the [facility] with respiratory distress and had to be intubated. He has been having high fevers over 103 helped a high of 105 apparently at the outside facility. Nurse reports that he has fair amount of endotracheal secretions, nonbloody. He has not required vasopressor support. He has been put on broad-spectrum antibiotic coverage including meropenem tobramycin and vancomycin. I am asked to assist with management. Home Medications Medication Instructions Recorded Confirmed Type Acetamin/Codeine 120-12 mg/5Ml 12.5 ml PEG Q8HR PRN 09/03/16 10/23/16 History [Tylenol/Codeine Liquid] Acetaminophen Tab [Tylenol Tab] 650 mg PER TUBE Q4H PRN #0 tablet 09/10/1610/23 Rx Albuterol/Ipratropium Neb [Duoneb] 3 ml RESP TX RT Q6H 09/10/16 10/23/16 Rx Ciprofloxacin 0.3% Oph Soln 2 drop RIGHT EYE Q4HR bottle 09/10/16 10/23/16 Rx [Ciloxan 0.3% Oph Soln] Diltiazem Tab [Cardizem Tab] 60 mg PO Q6H PRN #0 tablet 09/10/16 10/23/16 Rx Lansoprazole Odt Tab [Prevacid 30 mg PO DAILY tablet 09/10/16 10/23/16 Rx Solutab] Metoclopramide Tab [Reglan Tab] 5 mg PEG Q8H tablet 09/10/16 10/23/16 Rx Metoprolol Tartrate Tab [Lopressor 50 mg PEG BID tablet 09/10/16 10/23/16 Rx Tab] Sodium Hypochlorite 0.25% Irr 1 applic TOP BID applic 09/10/16 10/23/16 Rx [Dakins 1/2 Strength 0.25% Soln] levETIRAcetam TAB [Keppra Tab] 1,500 mg PEG BID tablet 09/10/16 10/23/16 Rx Allergies Allergy/AdvReac Type Severity Reaction Status Date / Time carisoprodol [From Soma] Allergy Unknown/Unable Verified 09/02/16 18:16 to obtain ROS unobtainable: due to mental status Medical,Surgical,& Family Hx - Medical History Cardio: History of: Cardiac Dysrhythmia (afib), Hypertension Neurology: History of: Seizures, Neurological Problems (quadraplegia from an anoxic brain injury; significant flexion contractures) Respiratory: History of: Asthma, COPD, Obstructive Sleep Apnea, Pneumonia, Respiratory Problems (trach) - Family History Family History: Reports;: Family Hypertension (moms, mom) - Social History Smoking Status: Unknown if ever smoked Frequency of Alcohol Use: Unknown Type of Drug Use: Unknown Infectious Disease Exam H&P - Constitutional Vitals: Vital Signs Temp Pulse Resp BP Pulse Ox 99.1 F 138 H 14 111/73 100 10/24/16 08:00 10/24/16 09:07 10/24/16 09:17 10/24/16 09:07 10/24/16 08:00 Intake and Output 10/23/16 10/24/16 10/24/16 23:59 07:59 15:59 Intake Total 453 / 453 Output Total 565 / 565 50 / 50 Balance -112 / -112 -50 / -50 Intake: IV 453 / 453 Merrem 1,000 mg In Ns 100 100 / 100 ml @ 200 mls/hr IV Q8H SARIAH Rx#:[id number] Nebcin Inj 120 mg In Ns 103 / 103 100 ml @ 200 mls/hr IV Q8H SARIAH Rx#:[id number] Vancomycin Inj 1,000 mg 250 / 250 In Ns 250 ml @ 250 mls/hr IV Q12H SARIAH Rx#: [id number] Output: Urine 565 / 565 50 / 50 Other: Voiding Method Indwelling Catheter Indwelling Catheter Weight 76.657 kg Patient Weight 10/24/16 23:59 Weight 76.657 kg Exam: General: Patient chronically ill-appearing, no purposeful interaction but eyes open HEENT: Mucous membranes pale pink and moist, anicteric acyanotic, JOSE, ET tube in situ Neck: Supple, no lymphadenopathy Respiratory system: Breath sounds a bit harsh with transmitted sounds from upper airway, no definite crepitations or wheezes heard Cardiovascular: Normal S1 and S2, no murmurs appreciated Abdomen: Normal bowel sounds, soft nontender throughout, no organomegaly or mass Genitourinary: No suprapubic pain or bladder distention, urine from [place] with cloudy sediment Extremities: no edema, legs quite wasted Skin: No rash, multiple tattoos Reports - Labs CBC & BMP: 10/24/16 01:46 10/24/16 01:46 Labs: Laboratory Results - last 24 hr 10/24/16 10/24/16 10/24/16 00:58 01:46 01:46 WBC 25.5 H D RBC 4.27 Hgb 11.1 L Hct 36.8 L MCV 86.2 L MCH 25 L MCHC 29.3 L RDW 17.1 Plt Count 354 D MPV 11.2 Neut % (Auto) 85.4 H Lymph % (Auto) 8.5 L [place] % (Auto) 5.1 Eos % (Auto) 0.0 Baso % (Auto) 0.1 Neut # (Auto) 21.7 H Lymph # (Auto) 2.2 [place] # (Auto) 1.3 H Eos # (Auto) 0.0 Baso # (Auto) 0.0 Total Counted 100 Immature Gran % 0.9 Nucleated RBC % 0.0 Immature Gran # 0.22 Segmented Neutrophils 92 H Band Neutrophils 1 Lymphocytes 5 L Monocytes 2 Nucleated RBCs # 0.00 Platelet Estimate Normal Anisocytosis 1+ ABG pH ABG pCO2 ABG pO2 ABG HCO3 ABG Total CO2 ABG O2 Saturation ABG Base Excess FiO2 Sodium Potassium Chloride Carbon Dioxide Anion Gap BUN Creatinine GFR Calculation BUN/Creatinine Ratio Glucose POC Glucose 145 H Calculated Osmolality Lactic Acid 2.0 Calcium Magnesium Total Bilirubin AST ALT Alkaline Phosphatase Total Protein Albumin Globulin Albumin/Globulin Ratio 10/24/16 10/24/16 10/24/16 01:46 03:30 07:34 WBC RBC Hgb Hct MCV MCH MCHC RDW Plt Count MPV Neut % (Auto) Lymph % (Auto) [place] % (Auto) Eos % (Auto) Baso % (Auto) Neut # (Auto) Lymph # (Auto) [place] # (Auto) Eos # (Auto) Baso # (Auto) Total Counted Immature Gran % Nucleated RBC % Immature Gran # Segmented Neutrophils Band Neutrophils Lymphocytes Monocytes Nucleated RBCs # Platelet Estimate Anisocytosis ABG pH 7.393 7.394 ABG pCO2 40.1 42.0 ABG pO2 137.0 H 99.4 H ABG HCO3 24.1 25.0 ABG Total CO2 21.9 L 23.2 ABG O2 Saturation 98.9 97.0 ABG Base Excess -0.4 0.7 FiO2 100.00 70.00 Sodium 154 H Potassium 4.5 Chloride 120 H Carbon Dioxide 24 Anion Gap 14.5 BUN 44 H Creatinine 1.10 GFR Calculation 93 BUN/Creatinine Ratio 40.00 H Glucose 155 H POC Glucose Calculated Osmolality 318.4 H Lactic Acid Calcium 7.8 L Magnesium 2.5 H Total Bilirubin 0.40 AST 20 ALT 45 Alkaline Phosphatase 61 Total Protein 5.5 L Albumin 2.2 L Globulin 3.3 Albumin/Globulin Ratio 0.6 L - Reports Microbiology: Past cultures noted with Pseudomonas from sputum and from urine - Diagnostic Findings Procedure: Chest x-ray: image reviewed by me, report reviewed by me (Haziness in bases, no definite consolidation)
--- NOTE | 2016-10-24 10:14 | General Surgery Consult Note ---
Assessment and Plan (1) Sacral decubitus ulcer, stage IV Status: Chronic Assessment and plan: Impression: Sacral ulcer and bilateral lower extremity ulcers Plan: No need for debridement. This is not appear to be the source of his sepsis. The ulcers all look good. Will consult Day for daily wound care. I will be out until next week. Call on-call surgeon if needed before then. Current Visit: No History of Present Illness Chief complaint: Consult for sacral and bilateral lower extremity ulcers History of present illness: Mr. Arreola is a 41 year old male who is known to me. He was recently discharged from the hospital to a halfway and has since been readmitted overnight with sepsis. I have been consulted to evaluate the sacral and bilateral lateral malleoli are ankle ulcers. I previously followed him at [facility]. Home Medications Medication Instructions Recorded Confirmed Type Acetamin/Codeine 120-12 mg/5Ml 12.5 ml PEG Q8HR PRN 09/03/16 10/23/16 History [Tylenol/Codeine Liquid] Acetaminophen Tab [Tylenol Tab] 650 mg PER TUBE Q4H PRN #0 tablet 09/10/1610/23 Rx Albuterol/Ipratropium Neb [Duoneb] 3 ml RESP TX RT Q6H 09/10/16 10/23/16 Rx Ciprofloxacin 0.3% Oph Soln 2 drop RIGHT EYE Q4HR bottle 09/10/16 10/23/16 Rx [Ciloxan 0.3% Oph Soln] Diltiazem Tab [Cardizem Tab] 60 mg PO Q6H PRN #0 tablet 09/10/16 10/23/16 Rx Lansoprazole Odt Tab [Prevacid 30 mg PO DAILY tablet 09/10/16 10/23/16 Rx Solutab] Metoclopramide Tab [Reglan Tab] 5 mg PEG Q8H tablet 09/10/16 10/23/16 Rx Metoprolol Tartrate Tab [Lopressor 50 mg PEG BID tablet 09/10/16 10/23/16 Rx Tab] Sodium Hypochlorite 0.25% Irr 1 applic TOP BID applic 09/10/16 10/23/16 Rx [Dakins 1/2 Strength 0.25% Soln] levETIRAcetam TAB [Keppra Tab] 1,500 mg PEG BID tablet 09/10/16 10/23/16 Rx Allergies Allergy/AdvReac Type Severity Reaction Status Date / Time carisoprodol [From Soma] Allergy Unknown/Unable Verified 09/02/16 18:16 to obtain Medical,Surgical,& Family Hx - Medical History Cardio: History of: Cardiac Dysrhythmia (afib), Hypertension Neurology: History of: Seizures, Neurological Problems (quadraplegia from an anoxic brain injury; significant flexion contractures) Respiratory: History of: Asthma, COPD, Obstructive Sleep Apnea, Pneumonia, Respiratory Problems (trach) - Family History Family History: Reports;: Family Hypertension (moms, mom) - Social History Smoking Status: Unknown if ever smoked Frequency of Alcohol Use: Unknown Type of Drug Use: Unknown ROS unobtainable: due to endotracheal tube Exam - Constitutional Vitals: Period Temp Pulse Resp BP Sys/Plata Pulse Ox Last 24 Hr 99.1 F-102.4 F 114-157 12-32 93-124/57-87 94-100 General appearance: no acute distress - Extremities Exam Extremities exam: Present: other (Large sacral ulcer with healthy viable tissue and no significant exudate. There is no necrosis or erythema. He has small lateral malleolar ulcers on both ankles. These appear clean and healthy with no sign of infection or any necrotic tissue.) Results - Labs CBC & BMP: 10/24/16 01:46 10/24/16 01:46
[2016-10-24] MEDS: VANCOMYCIN INJ 1,000 MG in SODIUM CHLORIDE 0.9% 250 ML IV SCH ×2 (11:19→22:29)
[2016-10-24] MEDS ORDERED: GLUCAGON 1 MG VIAL IM PRN (12:41)
[2016-10-24] MEDS ORDERED: DEXTROSE 50% 25 GM/50 ML VIAL IV PRN (12:41)
[2016-10-24] MEDS: INSULIN REGULAR 100 UNIT/ML SUBCUT SCH ×2 (13:45→17:41)
[2016-10-25] MEDS: METOCLOPRAMIDE 5 MG TABLET PEG SCH ×3 (00:42→17:27)
[2016-10-25] MEDS: TOBRAMYCIN INJ 120 MG in SODIUM CHLORIDE 0.9% 100 ML IV SCH ×2 (00:48→10:19)
[2016-10-25] MEDS: INSULIN REGULAR 100 UNIT/ML SUBCUT SCH ×4 (00:48→18:09)
[2016-10-25] MEDS: ALBUTEROL/IPRATROPIUM 3 ML NEB RESP TX SCH ×4 (01:04→20:37)
[2016-10-25] MEDS: CIPROFLOXACIN 0.3% OPH SOLN 2.5 ML BOTTLE RIGHT EYE SCH ×6 (01:47→21:15)
[2016-10-25 03:02] LABS: ABG Base Excess 2.3 MMOL/L (-2.5-2.5); ABG HCO3 26.4 MMOL/L (20-26); ABG Oxygen Saturation 97.1 % (95-100); ABG PCO2 43.1 MM HG (35-48); ABG PH 7.408 (7.35-7.45); ABG TCO2 25.2 MMOL/L (23-27); Allen Test Positive; Pt O2 Delivery Device Ventilator
[2016-10-25] MEDS: MEROPENEM 1,000 MG in SODIUM CHLORIDE 0.9% 100 ML IV SCH ×3 (06:08→22:06)
[2016-10-25 06:37] LABS: Basophils % 0.1 % (0.0-0.8); Eosinophils % 0.1 % (0.00-10.9); Hemoglobin 8.7 GM/DL (14.0-18.0); Immature Granulocytes % 0.7 %; Immature Granulocytes Absolute 0.11 #; Lymphocytes # 1.6 10*3/uL (1.4-4.0); Lymphocytes % 10.3 % (21.2-54.2); Mean Corpuscular HGB Conc 28.7 GM/DL (32-36); Mean Corpuscular Hemoglobin 26 PG (27-34); Mean Corpuscular Volume 89.9 FL (87-102); Mean Platelet Volume 11.2 FL (9.6-12.0); Monocytes # 0.6 10*3/uL (0.11-0.8); Monocytes % 3.6 % (1.7-12.7); Neutrophils # 13.3 10*3/uL (1.4-7.4); Neutrophils % 85.2 % (38.7-73.9); Platelet Count 269 T/CUMM (130-400); Red Blood Count 3.37 MC/CUMM (3.8-5.5); Red Cell Distribution Width 16.5 % (9.3-17.3); White Blood Count 15.7 T/CUMM (4-12)
[2016-10-25 06:38] LABS: Hematocrit 30.3 VOL% (42.0-52.0)
[2016-10-25 06:39] LABS: Hypochromasia 1+; Ovalocytes Slight; Platelet Estimate Adequate
[2016-10-25 06:54] LABS: Calcium 8.2 MG/DL (8.5-10.1); Magnesium 2.3 MG/DL (1.8-2.4); Osmolality,Calculated 304.7 MOS/KG (273-304); Potassium 3.5 MMOL/L (3.5-5.1)
--- NOTE | 2016-10-25 06:54 | XRay Report ---
Portable chest Date: 10/25/2016 Clinical history: Intubation, shortness of breath Comparison: 10/24/2016 Technique: Portable AP sitting chest Findings: The heart is borderline size with stable endotracheal tube. Persistent diffuse edema/infiltration/atelectasis at the lung bases with small pleural effusions. Stable mediastinum and osseous structures. Impression: No significant change in the appearance of the chest when compared to the previous exam. PROCEDURE INTERPRETED AT [facility] DEPARTMENT OF RADIOLOGY Final Report Signed by: Dr. Britta Chou
[2016-10-25 07:02] LABS: Phosphorous 1.9 MG/DL (2.5-4.9); Prealbumin 14.2 MG/DL (20-40)
--- NOTE | 2016-10-25 07:05 | Pulmonology Progress Note ---
Pulmonary - PN: Subj Interval history: This 41-year-old white male has hypoxic brain injury. He is in once again with fever and appears to have pulmonary infiltrates and a urinary tract infection. We are waiting on cultures to help guide us. He has thick secretions. I will bronchoscope this morning and get cultures. We should be able to start CPAP today. Reducing his FiO2 to 50%. Exam (Progress Note) - Constitutional Vitals: Period Temp Pulse Resp BP Sys/Plata Pulse Ox Last 24 Hr 97.6 F-99.1 F 88-138 12-33 88-117/50-83 98-100 Exam: Patient has some spontaneous motion but is not responsive to anything. Orotracheal tube is in place. Vital signs normal. Pupils reactive. Neck supple. Chest reveals some rhonchi on the bases. Heart normal rate and rhythm no murmurs. Abdomen soft no masses PEG tube in place. Extremities no clubbing cyanosis or edema. Results - Labs CBC & BMP: 10/25/16 05:39 10/25/16 05:39 Lab Results: I have reviewed the past 24 hour labs - Diagnostic Findings Procedure: Chest x-ray: image reviewed by me (Minimal bibasilar infiltrates bilaterally ET tube in good position.) Assessment and Plan (1) Urinary tract infection Status: Acute Assessment and plan: He has pyuria and an indwelling catheter. Cultures are pending. Unclear as yet whether the UTI or pneumonia on the initiating event of sepsis. Await cultures. Agree with broad-spectrum antibiotics including tobramycin. Watch renal function. 10/25/2016 cultures pending. Patient is on broad-spectrum antibiotics. Current Visit: No Qualifiers: Urinary tract infection type: catheter-associated UTI Indwelling urinary catheter type: indwelling urethral catheter Encounter type: initial encounter Qualified Code(s): T83.511A - Infection and inflammatory reaction due to indwelling urethral catheter, initial encounter; N39.0 - Urinary tract infection , site not specified (2) Sepsis Status: Acute Assessment and plan: Patient has been given IV fluids. Blood pressure now stable but he still tachycardic and febrile. Await cultures. Continue broad-spectrum antibiotics. Changed to D5W because of hypernatremia 10/25/2016 continuing fluids and antibiotics. Current Visit: Yes Qualifiers: Sepsis type: sepsis due to unspecified organism Qualified Code(s): A41.9 - Sepsis, unspecified organism (3) Anoxic brain injury Status: Chronic Assessment and plan: From a remote event. Mental status is been the same now for about 6 months. He has some spontaneous movement but no purposeful movement. He is unresponsive. Basically a persistent vegetative state it appears. 10/25/2016 remains unresponsive. Apparently has persistent vegetative state. Current Visit: Yes (4) Sacral decubitus ulcer, stage IV Status: Chronic Assessment and plan: We need to have Dr. Molina to review. 10/25/2016 Dr. Molina has evaluated and does not feel that the decubitus ulcer is a source of infection at present. Current Visit: No (5) Right lower lobe pneumonia Status: Acute Assessment and plan: Does have some mild bibasilar infiltrates. Not clear if this represents pneumonia. Agree with coverage for that however. Await cultures. 10/25/1969 secretions are thick. We will plan bronchoscopy in good cultures. Continuing antibiotics. Current Visit: No Qualifiers: Pneumonia type: due to Pseudomonas Qualified Code(s): J15.1 - Pneumonia due to Pseudomonas (6) Acute respiratory failure Status: Acute Assessment and plan: Patient on ventilator. Reduce FiO2 to 70%. Will need to make a decision about tracheostomy in a few days. One of the problems earlier was that the [facility] not take him back with the tracheostomy in place. 10/25/2016 ABGs improved. Reduce FiO2 and start weaning trials. Current Visit: Yes Qualifiers: Respiratory failure complication: hypoxia Qualified Code(s): J96.01 - Acute respiratory failure with hypoxia (7) Functional quadriplegia Status: Chronic Assessment and plan: Patient does move arms and legs from time to time but not purposefully. Current Visit: Yes
[2016-10-25] MEDS ORDERED: LIDOCAINE 1% 20 ML VIAL MISC INJ ONE (07:07)
--- NOTE | 2016-10-25 07:28 | Operative Note ---
Date of procedure: 10/25/16 (Fiberoptic bronchoscopy with removal of retained secretions and mucous plug) Pre-op diagnosis: Retained secretions and mucous plugs, pneumonia Post-op diagnosis: same Procedure: After an appropriate timeout to be sure we were dealing with Que Arreola, the patient's ventilator was turned to 100% oxygen. He was given a bolus of propofol. The fiberoptic bronchoscope was introduced via the side arm of the endotracheal tube. There were thick white mucopurulent secretions in both lower lobes. Also mucous plugs. These were irrigated with saline and both sides were lavaged. Bronchial washings were obtained for cultures. After removing all of the visible secretions, and noting that there were no endobronchial lesions, the bronchoscope was removed and the patient remained in his room on the ventilator in stable condition. Anesthesia: conscious sedation Surgeon / Physician: Devon Mai Estimated blood loss: none Specimens: other (Bronchial washings for culture) Condition: stable Disposition: ICU (Actually ccu) Results - Labs CBC & BMP: 10/25/16 05:39 10/25/16 05:39 Discharge Plan - Discharge Medications No Action Acetamin/Codeine 120-12 mg/5Ml [Tylenol/Codeine Liquid] 12.5 ml PEG Q8HR PRN PRN Reason: Pain Acetaminophen Tab [Tylenol Tab] 650 mg PER TUBE Q4H PRN #0 tablet PRN Reason: fever, headache/body aches Albuterol/Ipratropium Neb [Duoneb] 3 ml RESP TX RT Q6H Ciprofloxacin 0.3% Oph Soln [Ciloxan 0.3% Oph Soln] 2 drop RIGHT EYE Q4HR bottle Lansoprazole Odt Tab [Prevacid Solutab] 30 mg PO DAILY tablet Metoprolol Tartrate Tab [Lopressor Tab] 50 mg PEG BID tablet levETIRAcetam TAB [Keppra Tab] 1,500 mg PEG BID tablet Diltiazem Tab [Cardizem Tab] 60 mg PO Q6H PRN #0 tablet PRN Reason: INCREASED HEART RATE Metoclopramide Tab [Reglan Tab] 5 mg PEG Q8H tablet Sodium Hypochlorite 0.25% Irr [Dakins 1/2 Strength 0.25% Soln] 1 applic TOP BID applic - Follow Up or Referral - Forms/Instructions
[2016-10-25] MEDS: LANSOPRAZOLE ODT 30 MG TABLET PO SCH (10:18)
[2016-10-25] MEDS: levETIRAcetam 500 MG TABLET PEG SCH ×2 (10:18→20:58)
[2016-10-25] MEDS: METOPROLOL TARTRATE 50 MG TABLET PEG SCH ×2 (10:18→20:58)
[2016-10-25] MEDS: SODIUM HYPOCHLORITE 0.25% IRRIG 473 ML BOTTLE TOP SCH ×2 (10:23→20:58)
[2016-10-25] MEDS ORDERED: POTASSIUM PHOSPHATE 24 MMOL in SODIUM CHLORIDE 0.9% 250 ML IV ONE (10:30)
[2016-10-25] MEDS: DEXTROSE 5% NACL 0.45% 1,000 ML IV SCH ×2 (11:22→16:23)
--- NOTE | 2016-10-25 11:48 | Infectious Disease Progress ---
Assessment and Plan (1) Acute respiratory failure Status: Acute Assessment and plan: Possibly due to increased secretions, he has a history of this scenario in the past. His x-rays are consistent with pneumonia. He may have tracheitis as he has had in the past. Infection likely from Pseudomonas which has been identified in the past and has become increasingly resistant. Recommendations: 1. Continue meropenem and tobramycin 2. Stop vancomycin as we are unlikely to have a resistant gram-positive, plus do not want to give to nephrotoxic medicines at the same time. If he were to isolate MRSA I would give linezolid. 3. Monitor renal function closely on tobramycin 4. Follow-up cultures 5. I am going to add fluconazole as he may have oral candidiasis Current Visit: Yes Qualifiers: Respiratory failure complication: hypoxia Qualified Code(s): J96.01 - Acute respiratory failure with hypoxia (2) Fever Status: Acute Assessment and plan: Resolved. We are treating UTI and pneumonia. Current Visit: Yes (3) Leukocytosis Status: Acute Assessment and plan: Improving. Current Visit: Yes (4) Sepsis Status: Acute Current Visit: Yes Qualifiers: Sepsis type: sepsis due to unspecified organism Qualified Code(s): A41.9 - Sepsis, unspecified organism (5) Stage IV decubitus ulcer Status: Acute Assessment and plan: I saw photos of the ulcer and it is very large but very clean. No evidence of active infection. Continue local wound care. Current Visit: Yes Qualifiers: Pressure ulcer location: sacral region Qualified Code(s): L89.154 - Pressure ulcer of sacral region, stage 4 (6) Anoxic brain injury Status: Chronic Current Visit: Yes Infectious Disease - PN: Subj Interval history: Fever has resolved. Patient had bronchoscopy today and a lot of secretions were clear. Blood pressure stable. Infectious Disease Exam (PN) - Constitutional Vitals: Temp Pulse Resp BP Pulse Ox 97.1 F L 91 H 25 H 97/60 95 10/25/16 07:00 10/25/16 11:00 10/25/16 11:00 10/25/16 11:00 10/25/16 11:00 General appearance: no acute distress Exam: General appearance: no acute distress, eyes open but no purposeful interaction - Eye Eye exam: Present: EOMI. no icterus Pupils: Present: JOSE - ENT ENT exam: whitish coating over tongue but no buccal exudates - Respiratory Respiratory exam: vesicular BS, no crepitations or wheezes - Cardiovascular Cardiovascular exam: regular rate and rhythm, no murmurs - GI/Abdominal GI/Abdominal exam: normal bowel sounds, soft, non-tender, no organomegaly or mass - Extremities Exam Extremities exam: no edema - Skin Skin exam: no rash Results - Labs CBC & BMP: 10/25/16 05:39 10/25/16 05:39 Lab Results: I have reviewed the past 24 hour labs (Sputum culture pending, blood cultures negative to date) - Diagnostic Findings Procedure: Chest x-ray: image reviewed by me, report reviewed by me (Opacities in bases, unchanged from yesterday)
--- NOTE | 2016-10-25 14:04 | Hospitalist Progress Note ---
Assessment and Plan (1) Sepsis Status: Acute Assessment and plan: 1)sepsis- BP stable, lactic acid better after IVF resuscitation. BCx pending. Source UTI v pneumonia v sacral decub (clean appearing last admit) or all 3. On merrem, and tobra. Dr Abdirashid Smiley stopped Vanc today. If resistant GPC grows, use zyvox to protect renal function. chronic Indwelling tucker. 2)acute resp failure- had trach in the past, family doesn't want one now because he won't be able to return to his NH. On 70% FIO2 3)hyprnatremia- on D51/2NS now. added free water to his PEG regimen. recheck in am. 4)nutrition- resume tube feeds as he does at [facility]. accuchecks timed with bolus feedings, SSI. he has not been diabetic. 5)sacral decub- Dr Molina monitoring. 6)anoxic brain injury in the past- this has been his mental status for about 6 months. persistent vegetative state. 7)dispo- referred to LTAC. will likely be prolonged wean as family doesn't want him to have trach. Current Visit: Yes Qualifiers: Sepsis type: sepsis due to unspecified organism Qualified Code(s): A41.9 - Sepsis, unspecified organism (2) Bilateral pneumonia Status: Acute Current Visit: Yes (3) Urinary tract infection Status: Acute Current Visit: No Qualifiers: Urinary tract infection type: catheter-associated UTI Indwelling urinary catheter type: indwelling urethral catheter Encounter type: initial encounter Qualified Code(s): T83.511A - Infection and inflammatory reaction due to indwelling urethral catheter, initial encounter; N39.0 - Urinary tract infection , site not specified (4) Anoxic brain injury Status: Chronic Current Visit: Yes (5) Sacral decubitus ulcer, stage IV Status: Chronic Current Visit: No (6) Hypernatremia Status: Acute Current Visit: No (7) Acute respiratory failure Status: Acute Current Visit: Yes Qualifiers: Respiratory failure complication: hypoxia Qualified Code(s): J96.01 - Acute respiratory failure with hypoxia (8) Functional quadriplegia Status: Chronic Current Visit: Yes Hospitalist: Subjective Interval history: Mr Arreola remains on vent in CCU. He is hemodynamically stable. He had a bronch this morning. His Ucx is growing GNR. He is tolerating his tube feeds. I have added free water to address his hypernatremia. Exam - Constitutional Vitals: Period Temp Pulse Resp BP Sys/Plata Pulse Ox Last 24 Hr 97.1 F-98.7 F 88-119 2-33 88-118/50-83 95-100 General appearance: normal weight, no acute distress - Head Head exam: Present: normocephalic, atraumatic - Eye Eye exam: Present: EOMI. Absent: scleral icterus - Respiratory Respiratory exam: Present: clear to auscultation bilaterally - Cardiovascular Cardiovascular exam: Present: regular rate and rhythm - GI/Abdominal GI/Abdominal exam: Present: normal bowel sounds, soft. Absent: tenderness - Extremities Exam Extremities exam: Absent: edema - Neurological Exam Neurological exam: Present: other (baseline nonverbal, moves eyes, not clear if he is tracking) - Skin Skin exam: Present: warm, dry Results - Labs CBC & BMP: 10/25/16 05:39 10/25/16 05:39 Lab Results: I have reviewed the past 24 hour labs
[2016-10-25] MEDS: FLUCONAZOLE 100 MG TABLET NG SCH (14:15)
[2016-10-25] MEDS: PROPOFOL 1,000 MG/100 ML BOTTLE IV SCH (20:57)
[2016-10-25] MEDS: VANCOMYCIN INJ 1,000 MG in SODIUM CHLORIDE 0.9% 250 ML IV SCH (22:06)
[2016-10-26] MEDS: DEXTROSE 5% NACL 0.45% 1,000 ML IV SCH ×3 (00:05→16:13)
[2016-10-26] MEDS: ENOXAPARIN 40 MG/0.4 ML SYRINGE SUBCUT SCH (00:06)
[2016-10-26] MEDS: METOCLOPRAMIDE 5 MG TABLET PEG SCH ×3 (00:06→16:08)
[2016-10-26] MEDS: PROPOFOL 1,000 MG/100 ML BOTTLE IV SCH ×2 (00:06→20:21)
[2016-10-26] MEDS: INSULIN REGULAR 100 UNIT/ML SUBCUT SCH ×4 (00:49→18:52)
[2016-10-26] MEDS: ALBUTEROL/IPRATROPIUM 3 ML NEB RESP TX SCH ×4 (01:03→19:36)
[2016-10-26] MEDS: CIPROFLOXACIN 0.3% OPH SOLN 2.5 ML BOTTLE RIGHT EYE SCH ×6 (02:20→21:04)
[2016-10-26 03:32] LABS: Allen Test Positive; Pt O2 Delivery Device Ventilator
[2016-10-26 03:36] LABS: ABG Base Excess 3.3 MMOL/L (-2.5-2.5); ABG HCO3 27.3 MMOL/L (20-26); ABG Oxygen Saturation 96.9 % (95-100); ABG PCO2 36.2 MM HG (35-48); ABG PH 7.478 (7.35-7.45); ABG PO2 83.3 MM HG (80-95)
[2016-10-26] MEDS: TOBRAMYCIN INJ 320 MG in SODIUM CHLORIDE 0.9% 100 ML IV SCH ×2 (05:02→21:04)
[2016-10-26 06:08] LABS: Calcium 7.7 MG/DL (8.5-10.1); Osmolality,Calculated 293.3 MOS/KG (273-304); Potassium 3.6 MMOL/L (3.5-5.1)
[2016-10-26] MEDS: MEROPENEM 1,000 MG in SODIUM CHLORIDE 0.9% 100 ML IV SCH ×3 (06:20→22:17)
--- NOTE | 2016-10-26 07:26 | Pulmonology Progress Note ---
Pulmonary - PN: Subj Interval history: This 41-year-old white male has hypoxic brain injury. He is in once again with fever and appears to have pulmonary infiltrates and a urinary tract infection. We are waiting on cultures to help guide us. He has thick secretions. I will bronchoscope this morning and get cultures. We should be able to start CPAP today. Reducing his FiO2 to 50%. 10/26/2016 no change in mental status. Patient is afebrile. Lungs sound better and not as much secretions. On broad antibiotics for pneumonia. Urine only grew 6000 colonies. Starting on CPAP trials. Once again it will likely come down to whether he gets a tracheostomy or not. This will need to be discussed with his mother. Patient will be [facility] on Friday if all is stable. Exam (Progress Note) - Constitutional Vitals: Period Temp Pulse Resp BP Sys/Plata Pulse Ox Last 24 Hr 97.8 F-98.9 F 86-107 2-29 90-120/49-76 95-100 Exam: Patient has some spontaneous motion but is not responsive to anything. Orotracheal tube is in place. Vital signs normal. Pupils reactive. Neck supple. Chest reveals minimal rhonchi on the bases. Heart normal rate and rhythm no murmurs. Abdomen soft no masses PEG tube in place. Extremities no clubbing cyanosis or edema. He sounds a little better than yesterday. Results - Labs CBC & BMP: 10/25/16 05:39 10/26/16 04:55 Lab Results: I have reviewed the past 24 hour labs - Diagnostic Findings Procedure: Chest x-ray: image reviewed by me (Patchy bibasilar infiltrates. Slightly improved from yesterday.) Assessment and Plan (1) Urinary tract infection Status: Acute Assessment and plan: He has pyuria and an indwelling catheter. Cultures are pending. Unclear as yet whether the UTI or pneumonia on the initiating event of sepsis. Await cultures. Agree with broad-spectrum antibiotics including tobramycin. Watch renal function. 10/25/2016 cultures pending. Patient is on broad-spectrum antibiotics. 10/26/2016 only grew 6000 colonies of bacteria from urine culture. Await final identification. However I think we are mostly dealing with pneumonia. Current Visit: No Qualifiers: Urinary tract infection type: catheter-associated UTI Indwelling urinary catheter type: indwelling urethral catheter Encounter type: initial encounter Qualified Code(s): T83.511A - Infection and inflammatory reaction due to indwelling urethral catheter, initial encounter; N39.0 - Urinary tract infection , site not specified (2) Sepsis Status: Acute Assessment and plan: Patient has been given IV fluids. Blood pressure now stable but he still tachycardic and febrile. Await cultures. Continue broad-spectrum antibiotics. Changed to D5W because of hypernatremia 10/25/2016 continuing fluids and antibiotics. 10/26/2016 blood pressure stable. Heart rate has come down. Current Visit: Yes Qualifiers: Sepsis type: sepsis due to unspecified organism Qualified Code(s): A41.9 - Sepsis, unspecified organism (3) Anoxic brain injury Status: Chronic Assessment and plan: From a remote event. Mental status is been the same now for about 6 months. He has some spontaneous movement but no purposeful movement. He is unresponsive. Basically a persistent vegetative state it appears. 10/25/2016 remains unresponsive. Apparently has persistent vegetative state. 10/26/2016 no change in mental status. Current Visit: Yes (4) Sacral decubitus ulcer, stage IV Status: Chronic Assessment and plan: We need to have Dr. Molina to review. 10/25/2016 Dr. Molina has evaluated and does not feel that the decubitus ulcer is a source of infection at present. 10/26/2016 followed by wound care. Current Visit: No (5) Right lower lobe pneumonia Status: Acute Assessment and plan: Does have some mild bibasilar infiltrates. Not clear if this represents pneumonia. Agree with coverage for that however. Await cultures. 10/25/16 secretions are thick. We will plan bronchoscopy in good cultures. Continuing antibiotics. 10/26/2016 we remove thick secretions yesterday. Lungs sound better and there are less secretions today. Await cultures. Continuing empiric antibiotics. Current Visit: No Qualifiers: Pneumonia type: due to Pseudomonas Qualified Code(s): J15.1 - Pneumonia due to Pseudomonas (6) Acute respiratory failure Status: Acute Assessment and plan: Patient on ventilator. Reduce FiO2 to 70%. Will need to make a decision about tracheostomy in a few days. One of the problems earlier was that the care home where he had been would not take him back with the tracheostomy in place. 10/25/2016 ABGs improved. Reduce FiO2 and start weaning trials. 10/26/2016 ABGs look good. Starting weaning trials Current Visit: Yes Qualifiers: Respiratory failure complication: hypoxia Qualified Code(s): J96.01 - Acute respiratory failure with hypoxia (7) Functional quadriplegia Status: Chronic Assessment and plan: Patient does move arms and legs from time to time but not purposefully. Current Visit: Yes
--- NOTE | 2016-10-26 07:55 | Hospitalist Progress Note ---
Assessment and Plan - Time spent with patient Time spent with patient: Greater than 30 minutes (1) Sepsis Status: Acute Assessment and plan: Patient is being treated for sepsis likely secondary to pneumonia with broad- spectrum antibiotics and is being followed by pulmonary as well as infectious disease. Continuing current regimen and awaiting final cultures. Current Visit: Yes Qualifiers: Sepsis type: sepsis due to unspecified organism Qualified Code(s): A41.9 - Sepsis, unspecified organism (2) Right lower lobe pneumonia Status: Acute Assessment and plan: Patient underwent bronchoscopy yesterday by pulmonary. We are awaiting cultures. Continuing empiric IV antibiotics. Current Visit: No Qualifiers: Pneumonia type: due to Pseudomonas Qualified Code(s): J15.1 - Pneumonia due to Pseudomonas (3) Acute respiratory failure Status: Acute Assessment and plan: Patient has acute respiratory failure secondary to sepsis and underlying pneumonia. Continuing to treat his underlying infection. Pulmonary is following and assisting with ventilatory management. Current Visit: Yes Qualifiers: Respiratory failure complication: hypoxia Qualified Code(s): J96.01 - Acute respiratory failure with hypoxia (4) Urinary tract infection Status: Acute Assessment and plan: Patient apparently has a chronic indwelling Mcfadden catheter. Urine culture notes 6000 colony-forming units. Suspect pneumonia as the etiology of his underlying sepsis. Continuing current antibiotic regimen. Current Visit: No Qualifiers: Urinary tract infection type: catheter-associated UTI Indwelling urinary catheter type: indwelling urethral catheter Encounter type: initial encounter Qualified Code(s): T83.511A - Infection and inflammatory reaction due to indwelling urethral catheter, initial encounter; N39.0 - Urinary tract infection , site not specified (5) Sacral decubitus ulcer, stage IV Status: Chronic Assessment and plan: Continuing wound care. Doubt this is source of infection per prior notes. Continuing IV antibiotic therapy. Current Visit: No (6) Hypernatremia Status: Acute Assessment and plan: Has continued mild hypernatremia which is improving. Continue enteral nutritional support and free water replacement. Current Visit: No (7) Anoxic brain injury Status: Chronic Current Visit: Yes Hospitalist: Subjective Interval history: Chart has been reviewed and patient examined. This is a 41-year-old white male with hypoxic brain injury who now has acute respiratory failure secondary to sepsis possibly secondary to UTI versus pneumonia versus sacral decubitus. Patient underwent bronchoscopy yesterday. CPAP trials are being initiated. LTAC has been consulted. He continues to receive nutritional support through PEG feedings. Exam - Constitutional Vitals: Period Temp Pulse Resp BP Sys/Plata Pulse Ox Last 24 Hr 97.8 F-98.9 F 86-107 2-29 90-120/49-74 95-100 General appearance: no acute distress - Head Head exam: Present: normocephalic, atraumatic - Eye Eye exam: Present: EOMI Pupils: Present: JOSE - ENT ENT exam: Present: other (ET tube in place) - Neck Neck exam: Present: normal inspection - Respiratory Respiratory exam: Present: clear to auscultation bilaterally - Cardiovascular Cardiovascular exam: Present: regular rate and rhythm - GI/Abdominal GI/Abdominal exam: Present: normal bowel sounds, soft, other (PEG tube in place) . Absent: tenderness - Extremities Exam Extremities exam: Absent: calf tenderness, edema - Neurological Exam Neurological exam: Present: other (Opens his eyes and moves to tactile stimuli) - Skin Skin exam: Present: warm, dry. Absent: rash Results - Labs CBC & BMP: 10/25/16 05:39 10/26/16 04:55 Lab Results: I have reviewed the past 24 hour labs - Diagnostic Findings Procedure: Abdominal x-ray: image reviewed by me
--- NOTE | 2016-10-26 08:13 | XRay Report ---
XR chest 1V portable Indication: Ventilator Comparison: Chest x-ray 10/25/2016 Technique: Portable AP chest was performed. Findings: Multiple tubes and medical support devices appear stable. Peripheral opacities have increased in the right cardiophrenic angle and overlying the lateral aspect of the right hemidiaphragm. The left costophrenic angle is partially clear. Lungs otherwise clear. Chest is otherwise stable. Impression: 1. Minimal interval worsening of atelectasis within the right lung base is suggested. Improved appearance of the left costophrenic angle is demonstrated. 10/26/2016 8:10 AM PROCEDURE INTERPRETED AT [facility] DEPARTMENT OF RADIOLOGY Final Report Signed by: Dr. Shaun Yeung
[2016-10-26] MEDS: LANSOPRAZOLE ODT 30 MG TABLET PO SCH (09:47)
[2016-10-26] MEDS: FLUCONAZOLE 100 MG TABLET NG SCH (09:47)
[2016-10-26] MEDS: METOPROLOL TARTRATE 50 MG TABLET PEG SCH ×2 (09:47→20:21)
[2016-10-26] MEDS: levETIRAcetam 500 MG TABLET PEG SCH ×2 (09:47→20:21)
[2016-10-26] MEDS: SODIUM HYPOCHLORITE 0.25% IRRIG 473 ML BOTTLE TOP SCH ×2 (09:48→20:21)
[2016-10-26] MEDS: BACITRACIN OINT 0.9 GM PACK TOP SCH (18:56)
[2016-10-27] MEDS: ALBUTEROL/IPRATROPIUM 3 ML NEB RESP TX SCH ×4 (00:35→19:19)
[2016-10-27] MEDS: DEXTROSE 5% NACL 0.45% 1,000 ML IV SCH ×4 (00:52→22:07)
[2016-10-27] MEDS: PROPOFOL 1,000 MG/100 ML BOTTLE IV SCH ×2 (00:54→21:58)
[2016-10-27] MEDS: ENOXAPARIN 40 MG/0.4 ML SYRINGE SUBCUT SCH (00:55)
[2016-10-27] MEDS: INSULIN REGULAR 100 UNIT/ML SUBCUT SCH ×4 (00:57→18:16)
[2016-10-27] MEDS: METOCLOPRAMIDE 5 MG TABLET PEG SCH ×3 (00:58→16:55)
[2016-10-27] MEDS: CIPROFLOXACIN 0.3% OPH SOLN 2.5 ML BOTTLE RIGHT EYE SCH ×6 (01:27→21:57)
[2016-10-27 03:26] LABS: ABG Base Excess 4.3 MMOL/L (-2.5-2.5); ABG HCO3 28.4 MMOL/L (20-26); ABG Oxygen Saturation 99.6 % (95-100); ABG PH 7.495 (7.35-7.45); ABG TCO2 25.9 MMOL/L (23-27); Allen Test Positive; Pt O2 Delivery Device Ventilator
[2016-10-27] MEDS: MEROPENEM 1,000 MG in SODIUM CHLORIDE 0.9% 100 ML IV SCH ×3 (06:44→22:06)
[2016-10-27 06:50] LABS: Basophils % 0.1 % (0.0-0.8); Eosinophils # 0.1 10*3/uL (0.0-0.87); Eosinophils % 1.3 % (0.00-10.9); Hematocrit 27.2 VOL% (42.0-52.0); Hemoglobin 7.9 GM/DL (14.0-18.0); Immature Granulocytes % 0.6 %; Immature Granulocytes Absolute 0.05 #; Lymphocytes # 1.1 10*3/uL (1.4-4.0); Lymphocytes % 13.4 % (21.2-54.2); Mean Corpuscular Hemoglobin 25 PG (27-34); Mean Corpuscular Volume 86.1 FL (87-102); Mean Platelet Volume 11.7 FL (9.6-12.0); Monocytes # 0.3 10*3/uL (0.11-0.8); Monocytes % 3.6 % (1.7-12.7); Neutrophils # 6.8 10*3/uL (1.4-7.4); Platelet Count 214 T/CUMM (130-400); Red Blood Count 3.16 MC/CUMM (3.8-5.5); Red Cell Distribution Width 16.3 % (9.3-17.3); White Blood Count 8.4 T/CUMM (4-12)
[2016-10-27 07:26] LABS: Osmolality,Calculated 291.4 MOS/KG (273-304); Potassium 3.4 MMOL/L (3.5-5.1)
--- NOTE | 2016-10-27 08:11 | Pulmonology Progress Note ---
Pulmonary - PN: Subj Interval history: This 41-year-old white male has hypoxic brain injury. He is in once again with fever and appears to have pulmonary infiltrates and a urinary tract infection. We are waiting on cultures to help guide us. He has thick secretions. I will bronchoscope this morning and get cultures. We should be able to start CPAP today. Reducing his FiO2 to 50%. 10/26/2016 no change in mental status. Patient is afebrile. Lungs sound better and not as much secretions. On broad antibiotics for pneumonia. Urine only grew 6000 colonies. Starting on CPAP trials. Once again it will likely come down to whether he gets a tracheostomy or not. This will need to be discussed with his mother. Patient will be going to [facility] on Friday if all is stable. 10/27/2016 patient sounds a little better and x-ray is a little better. Proceeding with CPAP trials. Plans are to transfer to LT[facility] tomorrow. He is growing gram-negative yanelis from his bronchial washings. Currently on Merrem and tobramycin. Await final culture. His urine culture grew Acinetobacter and it is sensitive to tobramycin. He only had 6000 colonies however, and this would not be significant. Discussed case with patient's mother today. She does not want a tracheostomy because she felt that at one of the retirement as they were not taking the dissection him with it. Also the patient would not be able to go back to the retirement in [place] where she lives. This will need discussing further as I think it would be safer for him to have the tracheostomy back in place prior to extubation in order to clear his airways. Exam (Progress Note) - Constitutional Vitals: Period Temp Pulse Resp BP Sys/Plata Pulse Ox Last 24 Hr 98.1 F-98.8 F 88-108 12-25 89-107/44-73 93-100 Exam: Patient has some spontaneous motion but is not responsive to anything. Orotracheal tube is in place. Vital signs normal. Pupils reactive. Neck supple. Chest reveals minimal rhonchi on the bases. Heart normal rate and rhythm no murmurs. Abdomen soft no masses PEG tube in place. Extremities no clubbing cyanosis or edema. Once again, he sounds a little better than yesterday. Results - Labs CBC & BMP: 10/27/16 06:19 10/27/16 06:19 Lab Results: I have reviewed the past 24 hour labs - Diagnostic Findings Procedure: Chest x-ray: image reviewed by me (Minimal left basilar infiltrate. Right lung looks good. ET tube in good position.) Assessment and Plan (1) Urinary tract infection Status: Acute Assessment and plan: He has pyuria and an indwelling catheter. Cultures are pending. Unclear as yet whether the UTI or pneumonia on the initiating event of sepsis. Await cultures. Agree with broad-spectrum antibiotics including tobramycin. Watch renal function. 10/25/2016 cultures pending. Patient is on broad-spectrum antibiotics. 10/26/2016 only grew 6000 colonies of bacteria from urine culture. Await final identification. However I think we are mostly dealing with pneumonia. 10/27/2016 urine culture grew Acinetobacter. With this small colony count would not specifically treat this. Current Visit: No Qualifiers: Urinary tract infection type: catheter-associated UTI Indwelling urinary catheter type: indwelling urethral catheter Encounter type: initial encounter Qualified Code(s): T83.511A - Infection and inflammatory reaction due to indwelling urethral catheter, initial encounter; N39.0 - Urinary tract infection , site not specified (2) Sepsis Status: Acute Assessment and plan: Patient has been given IV fluids. Blood pressure now stable but he still tachycardic and febrile. Await cultures. Continue broad-spectrum antibiotics. Changed to D5W because of hypernatremia 10/25/2016 continuing fluids and antibiotics. 10/26/2016 blood pressure stable. Heart rate has come down. 10/27/2016 continuing Merrem and tobramycin. Growing gram-negative rods from his sputum. Await final identification. Blood cultures have been negative. Current Visit: Yes Qualifiers: Sepsis type: sepsis due to unspecified organism Qualified Code(s): A41.9 - Sepsis, unspecified organism (3) Anoxic brain injury Status: Chronic Assessment and plan: From a remote event. Mental status is been the same now for about 6 months. He has some spontaneous movement but no purposeful movement. He is unresponsive. Basically a persistent vegetative state it appears. 10/25/2016 remains unresponsive. Apparently has persistent vegetative state. 10/26/2016 no change in mental status. 10/27/2016 no change in mental status. He does have some spontaneous motion but it appears she has persistent vegetative state. Current Visit: Yes (4) Sacral decubitus ulcer, stage IV Status: Chronic Assessment and plan: We need to have Dr. Molina to review. 10/25/2016 Dr. Molina has evaluated and does not feel that the decubitus ulcer is a source of infection at present. 10/26/2016 followed by wound care. Current Visit: No (5) Right lower lobe pneumonia Status: Acute Assessment and plan: Does have some mild bibasilar infiltrates. Not clear if this represents pneumonia. Agree with coverage for that however. Await cultures. 10/25/16 secretions are thick. We will plan bronchoscopy in good cultures. Continuing antibiotics. 10/26/2016 we remove thick secretions yesterday. Lungs sound better and there are less secretions today. Await cultures. Continuing empiric antibiotics. 10/27/2016 and negative pneumonia. Await final cultures. This was healthcare facility associated (started at retirement) so he is on broad-spectrum antibiotics. Current Visit: No Qualifiers: Pneumonia type: due to Pseudomonas Qualified Code(s): J15.1 - Pneumonia due to Pseudomonas (6) Acute respiratory failure Status: Acute Assessment and plan: Patient on ventilator. Reduce FiO2 to 70%. Will need to make a decision about tracheostomy in a few days. One of the problems earlier was that the retirement where he had been would not take him back with the tracheostomy in place. 10/25/2016 ABGs improved. Reduce FiO2 and start weaning trials. 10/26/2016 ABGs look good. Starting weaning trials 10/27/2016 tolerating weaning trials. The question that will arise will be whether to extubate him or do tracheostomy. The mother does not want tracheostomy. Will decide this in a few days. Current Visit: Yes Qualifiers: Respiratory failure complication: hypoxia Qualified Code(s): J96.01 - Acute respiratory failure with hypoxia (7) Functional quadriplegia Status: Chronic Assessment and plan: Patient does move arms and legs from time to time but not purposefully. Current Visit: Yes
--- NOTE | 2016-10-27 08:41 | XRay Report ---
XR chest 1V portable Indication: Intubation. Comparison: Chest x-ray 10/26/2016. Technique: Portable AP chest was performed. Findings: Scattered airspace disease left lung base has minimally increased in prominence since the comparison study. Interstitial stranding in the right lung base is stable. Upper lungs are clear. Multiple tubes and medical support devices appear stable. Chest is otherwise unchanged. Impression: 1. Minimal interval worsening of airspace disease left lung base may reflect worsening atelectasis or infection. Overall, there has been little change in the chest. 10/27/2016 8:37 AM PROCEDURE INTERPRETED AT [facility] DEPARTMENT OF RADIOLOGY Final Report Signed by: Dr. Shaun Yeung
--- NOTE | 2016-10-27 09:15 | Hospitalist Progress Note ---
Assessment and Plan - Time spent with patient Time spent with patient: Less than 30 minutes (1) Sepsis Status: Acute Assessment and plan: Patient is being treated for sepsis likely secondary to pneumonia with broad- spectrum antibiotics and is being followed by pulmonary as well as infectious disease. Continuing current regimen and awaiting final cultures. 10/27/16: Continues to slowly improve. He does have gram-negative rods from his bronchial washings and is currently on Merrem and tobramycin. Final ID and sensitivity pending urine culture did grow Acinetobacter sensitive to tobramycin however this is felt to be insignificant with less than [address] Mai is assisted with status and discussion with family reveals that they do not desire tracheostomy at this time. Plan for transfer to LTAC in the a.m. Current Visit: Yes Qualifiers: Sepsis type: sepsis due to unspecified organism Qualified Code(s): A41.9 - Sepsis, unspecified organism (2) Right lower lobe pneumonia Status: Acute Assessment and plan: Patient underwent bronchoscopy yesterday by pulmonary. We are awaiting cultures. Continuing empiric IV antibiotics. 10/27/16: No bronchial washings revealed gram-negative rods and he is on appropriate antibiotic therapy. Current Visit: No Qualifiers: Pneumonia type: due to Pseudomonas Qualified Code(s): J15.1 - Pneumonia due to Pseudomonas (3) Acute respiratory failure Status: Acute Assessment and plan: Patient has acute respiratory failure secondary to sepsis and underlying pneumonia. Continuing to treat his underlying infection. Pulmonary is following and assisting with ventilatory management. Current Visit: Yes Qualifiers: Respiratory failure complication: hypoxia Qualified Code(s): J96.01 - Acute respiratory failure with hypoxia (4) Urinary tract infection Status: Acute Assessment and plan: Patient apparently has a chronic indwelling Mcfadden catheter. Urine culture notes 6000 colony-forming units. Suspect pneumonia as the etiology of his underlying sepsis. Continuing current antibiotic regimen. Current Visit: No Qualifiers: Urinary tract infection type: catheter-associated UTI Indwelling urinary catheter type: indwelling urethral catheter Encounter type: initial encounter Qualified Code(s): T83.511A - Infection and inflammatory reaction due to indwelling urethral catheter, initial encounter; N39.0 - Urinary tract infection , site not specified (5) Sacral decubitus ulcer, stage IV Status: Chronic Assessment and plan: Continuing wound care. Doubt this is source of infection per prior notes. Continuing IV antibiotic therapy. Current Visit: No (6) Hypernatremia Status: Acute Assessment and plan: Has continued mild hypernatremia which is improving. Continue enteral nutritional support and free water replacement. Current Visit: No (7) Anoxic brain injury Status: Chronic Current Visit: Yes Hospitalist: Subjective Interval history: 41-year-old white male with anoxic brain injury with acute respiratory failure secondary to pneumonia. Cultures have been reviewed and noted and he is on appropriate antibiotic therapy at this time. Pulmonary has been consulted. Plans are for transfer to LTAC tomorrow. Exam - Constitutional Vitals: Period Temp Pulse Resp BP Sys/Plata Pulse Ox Last 24 Hr 98.1 F-98.8 F 88-108 12-25 89-107/44-73 93-100 General appearance: no acute distress - Head Head exam: Present: normocephalic, atraumatic - Eye Eye exam: Present: EOMI - ENT ENT exam: Present: other (ET tube in place) - Respiratory Respiratory exam: Present: clear to auscultation bilaterally - Cardiovascular Cardiovascular exam: Present: regular rate and rhythm - GI/Abdominal GI/Abdominal exam: Present: normal bowel sounds, soft, other (PEG tube in place) . Absent: tenderness, rebound - Extremities Exam Extremities exam: Absent: calf tenderness, edema - Neurological Exam Neurological exam: Present: other (He does open his eyes and moves to tactile stimuli but there is no purposeful movement) - Skin Skin exam: Present: warm, dry Results - Labs CBC & BMP: 10/27/16 06:19 10/27/16 06:19 Lab Results: I have reviewed the past 24 hour labs - Diagnostic Findings Procedure: Chest x-ray: image reviewed by me
[2016-10-27] MEDS: POTASSIUM CHLORIDE 20 MEQ/15 ML UDCUP PO SCH ×2 (10:51→21:57)
[2016-10-27] MEDS: LANSOPRAZOLE ODT 30 MG TABLET PO SCH (10:51)
[2016-10-27] MEDS: FLUCONAZOLE 100 MG TABLET NG SCH (10:51)
[2016-10-27] MEDS: METOPROLOL TARTRATE 50 MG TABLET PEG SCH ×2 (10:52→21:57)
[2016-10-27] MEDS: SODIUM HYPOCHLORITE 0.25% IRRIG 473 ML BOTTLE TOP SCH ×2 (10:53→21:57)
[2016-10-27] MEDS: BACITRACIN OINT 0.9 GM PACK TOP SCH (10:53)
[2016-10-27] MEDS: levETIRAcetam 500 MG TABLET PEG SCH ×2 (12:40→21:57)
[2016-10-27] MEDS: TOBRAMYCIN INJ 320 MG in SODIUM CHLORIDE 0.9% 100 ML IV SCH (17:00)
[2016-10-28] MEDS: ALBUTEROL/IPRATROPIUM 3 ML NEB RESP TX SCH ×3 (00:03→12:37)
[2016-10-28] MEDS: METOCLOPRAMIDE 5 MG TABLET PEG SCH ×2 (00:32→08:12)
[2016-10-28] MEDS: ENOXAPARIN 40 MG/0.4 ML SYRINGE SUBCUT SCH (00:32)
[2016-10-28] MEDS: DEXTROSE 5% NACL 0.45% 1,000 ML IV SCH ×2 (00:32→06:53)
[2016-10-28] MEDS: INSULIN REGULAR 100 UNIT/ML SUBCUT SCH ×3 (00:32→14:03)
[2016-10-28] MEDS: PROPOFOL 1,000 MG/100 ML BOTTLE IV SCH (00:32)
[2016-10-28 03:09] LABS: ABG Base Excess 6.5 MMOL/L (-2.5-2.5); ABG HCO3 30.7 MMOL/L (20-26); ABG Oxygen Saturation 96.5 % (95-100); ABG PCO2 42.6 MM HG (35-48); ABG PH 7.475 (7.35-7.45); Allen Test Positive; Pt O2 Delivery Device Ventilator
[2016-10-28] MEDS: CIPROFLOXACIN 0.3% OPH SOLN 2.5 ML BOTTLE RIGHT EYE SCH ×4 (04:28→14:03)
[2016-10-28 06:08] LABS: Magnesium 1.9 MG/DL (1.8-2.4); Osmolality,Calculated 291.3 MOS/KG (273-304); Phosphorous 2.6 MG/DL (2.5-4.9); Potassium 3.1 MMOL/L (3.5-5.1); Prealbumin 11.4 MG/DL (20-40)
[2016-10-28] MEDS: MEROPENEM 1,000 MG in SODIUM CHLORIDE 0.9% 100 ML IV SCH (06:53)
--- NOTE | 2016-10-28 07:30 | XRay Report ---
Referring Physician: Devon Mai MD Exam: XR chest 1V portable Date: October 28, 2016 at 3:07 AM Reason: Ventilation, pneumonia Comparison: Chest one view portable October 27, 2016 Findings: An endotracheal tube is again in place. The cardiac silhouette is again mildly enlarged. There are scattered opacities within both lower lung zones. This could represent pulmonary edema or pneumonia with atelectasis. No pneumothorax is identified, but there may be minimal bilateral pleural fluid. The osseous structures appear stable. Impression: There is slight increased atelectasis/consolidation at the right lower lung zone. The study is otherwise similar to before. PROCEDURE INTERPRETED AT [facility] DEPARTMENT OF RADIOLOGY Final Report Signed by: Dr. Jose De Jesus
[2016-10-28] MEDS: METOPROLOL TARTRATE 50 MG TABLET PEG SCH (08:12)
[2016-10-28] MEDS: LANSOPRAZOLE ODT 30 MG TABLET PO SCH (08:12)
[2016-10-28] MEDS: SODIUM HYPOCHLORITE 0.25% IRRIG 473 ML BOTTLE TOP SCH (08:12)
[2016-10-28] MEDS: BACITRACIN OINT 0.9 GM PACK TOP SCH (08:12)
[2016-10-28] MEDS: FLUCONAZOLE 100 MG TABLET NG SCH (08:13)
[2016-10-28] MEDS: levETIRAcetam 500 MG TABLET PEG SCH (08:13)
--- NOTE | 2016-10-28 08:35 | Pulmonology Progress Note ---
Pulmonary - PN: Subj Interval history: This 41-year-old white male has hypoxic brain injury. He is in once again with fever and appears to have pulmonary infiltrates and a urinary tract infection. We are waiting on cultures to help guide us. He has thick secretions. I will bronchoscope this morning and get cultures. We should be able to start CPAP today. Reducing his FiO2 to 50%. 10/26/2016 no change in mental status. Patient is afebrile. Lungs sound better and not as much secretions. On broad antibiotics for pneumonia. Urine only grew 6000 colonies. Starting on CPAP trials. Once again it will likely come down to whether he gets a tracheostomy or not. This will need to be discussed with his mother. Patient will be going to [facility] on Friday if all is stable. 10/27/2016 patient sounds a little better and x-ray is a little better. Proceeding with CPAP trials. Plans are to transfer to [facility] tomorrow. He is growing gram-negative yanelis from his bronchial washings. Currently on Merrem and tobramycin. Await final culture. His urine culture grew Acinetobacter and it is sensitive to tobramycin. He only had 6000 colonies however, and this would not be significant. Discussed case with patient's mother today. She does not want a tracheostomy because she felt that at one of the longterm as they were not taking the trach plug out to suction him. Also the patient would not be able to go back to the longterm in [place] where she lives. This will need discussing further as I think it would be safer for him to have the tracheostomy back in place prior to extubation in order to clear his airways. 10/28/2016 patient is tolerating CPAP. ABGs look good. Bronchial washings have grown out Pseudomonas and a second gram-negative yanelis. Pseudomonas is only sensitive to the aminoglycosides and he is on tobramycin, along with Merrem. Should be adequately covered. Plan is to go to [facility] today to continue weaning. I will continue to address the need for tracheostomy with the patient' s mother. It may again just be temporary until we feel he can defend his airway. Exam (Progress Note) - Constitutional Vitals: Period Temp Pulse Resp BP Sys/Plata Pulse Ox Last 24 Hr 98.2 F-98.7 F 85-109 0-101 94-126/50-68 94-100 Exam: Patient has some spontaneous motion but is not responsive to anything. Orotracheal tube is in place. Vital signs normal. Pupils reactive. Neck supple. Chest reveals minimal rhonchi on the bases. Heart normal rate and rhythm no murmurs. Abdomen soft no masses PEG tube in place. Extremities no clubbing cyanosis or edema. Results - Labs CBC & BMP: 10/27/16 06:19 10/28/16 05:18 Lab Results: I have reviewed the past 24 hour labs - Diagnostic Findings Procedure: Chest x-ray: image reviewed by me (Minimal bibasilar infiltrates. ET tube in good position. Little change from yesterday.) Assessment and Plan (1) Urinary tract infection Status: Acute Assessment and plan: He has pyuria and an indwelling catheter. Cultures are pending. Unclear as yet whether the UTI or pneumonia on the initiating event of sepsis. Await cultures. Agree with broad-spectrum antibiotics including tobramycin. Watch renal function. 10/25/2016 cultures pending. Patient is on broad-spectrum antibiotics. 10/26/2016 only grew 6000 colonies of bacteria from urine culture. Await final identification. However I think we are mostly dealing with pneumonia. 10/27/2016 urine culture grew Acinetobacter. With this small colony count would not specifically treat this. Current Visit: No Qualifiers: Urinary tract infection type: catheter-associated UTI Indwelling urinary catheter type: indwelling urethral catheter Encounter type: initial encounter Qualified Code(s): T83.511A - Infection and inflammatory reaction due to indwelling urethral catheter, initial encounter; N39.0 - Urinary tract infection , site not specified (2) Sepsis Status: Acute Assessment and plan: Patient has been given IV fluids. Blood pressure now stable but he still tachycardic and febrile. Await cultures. Continue broad-spectrum antibiotics. Changed to D5W because of hypernatremia 10/25/2016 continuing fluids and antibiotics. 10/26/2016 blood pressure stable. Heart rate has come down. 10/27/2016 continuing Merrem and tobramycin. Growing gram-negative rods from his sputum. Await final identification. Blood cultures have been negative. 10/28/2016 sepsis is likely due to his pneumonia. Current Visit: Yes Qualifiers: Sepsis type: sepsis due to unspecified organism Qualified Code(s): A41.9 - Sepsis, unspecified organism (3) Anoxic brain injury Status: Chronic Assessment and plan: From a remote event. Mental status is been the same now for about 6 months. He has some spontaneous movement but no purposeful movement. He is unresponsive. Basically a persistent vegetative state it appears. 10/25/2016 remains unresponsive. Apparently has persistent vegetative state. 10/26/2016 no change in mental status. 10/27/2016 no change in mental status. He does have some spontaneous motion but it appears she has persistent vegetative state. 10/28/2016 no change in mental status. Does not respond to stimulation other than withdrawal from painful stimulation at times. Current Visit: Yes (4) Sacral decubitus ulcer, stage IV Status: Chronic Assessment and plan: We need to have Dr. Molina to review. 10/25/2016 Dr. Molina has evaluated and does not feel that the decubitus ulcer is a source of infection at present. 10/26/2016 followed by wound care. 10/28/2016 followed by surgery and wound care. This will continue to need close observation. Current Visit: No (5) Right lower lobe pneumonia Status: Acute Assessment and plan: Does have some mild bibasilar infiltrates. Not clear if this represents pneumonia. Agree with coverage for that however. Await cultures. 10/25/16 secretions are thick. We will plan bronchoscopy in good cultures. Continuing antibiotics. 10/26/2016 we remove thick secretions yesterday. Lungs sound better and there are less secretions today. Await cultures. Continuing empiric antibiotics. 10/27/2016 and negative pneumonia. Await final cultures. This was healthcare facility associated (started at longterm) so he is on broad-spectrum antibiotics. 10/28/2016 Pseudomonas pneumonia. Also has a second gram-negative organism growing that has not been identified yet. Currently covered well with Merrem and tobramycin. Current Visit: No Qualifiers: Pneumonia type: due to Pseudomonas Qualified Code(s): J15.1 - Pneumonia due to Pseudomonas (6) Acute respiratory failure Status: Acute Assessment and plan: Patient on ventilator. Reduce FiO2 to 70%. Will need to make a decision about tracheostomy in a few days. One of the problems earlier was that the longterm where he had been would not take him back with the tracheostomy in place. 10/25/2016 ABGs improved. Reduce FiO2 and start weaning trials. 10/26/2016 ABGs look good. Starting weaning trials 10/27/2016 tolerating weaning trials. The question that will arise will be whether to extubate him or do tracheostomy. The mother does not want tracheostomy. Will decide this in a few days. 10/28/2016 ABGs look good. Tolerating CPAP. Unable to extubate safely as yet due to his mental status. Current Visit: Yes Qualifiers: Respiratory failure complication: hypoxia Qualified Code(s): J96.01 - Acute respiratory failure with hypoxia (7) Functional quadriplegia Status: Chronic Assessment and plan: Patient does move arms and legs from time to time but not purposefully. Current Visit: Yes
[2016-10-28] MEDS: TOBRAMYCIN INJ 320 MG in SODIUM CHLORIDE 0.9% 100 ML IV SCH (10:10)
[2016-10-28] MEDS ORDERED: POTASSIUM CHLORIDE INJ 40 MEQ in DEXTROSE 5% NACL 0.45% 1,000 ML IV SCH (10:49)
--- NOTE | 2016-10-28 10:54 | Discharge Summary ---
Hospital Course - Hospital Course Hospital Course: Mr. Arreola is a 41 year old male with a history of Anoxic Brain Injury transferred from ER in [facility] with respiratory failure due to aspiration and Sepsis. He was recently hospitalized and discharged on the after being treated for pseudomonas pneumonia. Patients initial cxr showed no infiltrates but repeat cxr showed right lower lobe pneumonia. Patient was intubated but his mother has refused another tracheostomy even though he will never be able to properly protect his airway. Dr. Mai was consulted and performed a bronchoscopy on 10/25/16 which grew pseudomonas and gram negative rods. His urine culture grew acinetobacter and anderson tropicalis, but the acinetobacter colony count was low. He is receiving meropenem and tobramycin. Patient has a chronic stage IV decubitus on admission. Patient shows no improvement in his mental status. Patients blood pressure is stable on fluids. His potassium is being replaced. He has been accepted to [facility] to hopefully wean off vent. - Time spent with patient Time with patient DS: Greater than 30 minutes (50 min) Discharge Plan - Discharge Data Disposition: Disch[facility]fer to [facility] Condition at Discharge: Stable Discharge Diet: other (two calorie HN 8 ox with 30 ml proteinex with every feed one can every 6 hours ) Activity: resume usual activities as tolerated Hygiene: other (contact isolation ) - Discharge Medications New Albuterol Neb [Proventil Neb] 2.5 mg RESP TX RT Q1H PRN #0 PRN Reason: Shortness Of Breath/Wheezing Ciprofloxacin 0.3% Oph Soln [Ciloxan 0.3% Oph Soln] 2 drop RIGHT EYE Q4HR bottle Dextrose 50% [D50] 25 gm IV PRN PRN #0 vial PRN Reason: Hypoglycemia with IV access Enoxaparin [Lovenox] 40 mg SUBCUT Q24H syringe Insulin Regular [HumuLIN R] See Protocol SUBCUT Q6HR unit Meropenem [Merrem] 1,000 mg IV Q8H vial Ondansetron Inj [Zofran Inj] 4 mg IV Q4H PRN #0 vial PRN Reason: Nausea Glucagon 1 mg IM PRN PRN #0 vial PRN Reason: Hypoglycemia w/o IV access Tobramycin Inj [Nebcin Inj] 320 mg IV Q18H vial Continue Acetamin/Codeine 120-12 mg/5Ml [Tylenol/Codeine Liquid] 12.5 ml PEG Q8HR PRN PRN Reason: Pain Acetaminophen Tab [Tylenol Tab] 650 mg PER TUBE Q4H PRN #0 tablet PRN Reason: fever, headache/body aches Albuterol/Ipratropium Neb [Duoneb] 3 ml RESP TX RT Q6H Lansoprazole Odt Tab [Prevacid Solutab] 30 mg PO DAILY tablet Metoprolol Tartrate Tab [Lopressor Tab] 50 mg PEG BID tablet levETIRAcetam TAB [Keppra Tab] 1,500 mg PEG BID tablet Diltiazem Tab [Cardizem Tab] 60 mg PO Q6H PRN #0 tablet PRN Reason: INCREASED HEART RATE Metoclopramide Tab [Reglan Tab] 5 mg PEG Q8H tablet Sodium Hypochlorite 0.25% Irr [Dakins 1/2 Strength 0.25% Soln] 1 applic TOP BID applic Discontinued Ciprofloxacin 0.3% Oph Soln [Ciloxan 0.3% Oph Soln] 2 drop RIGHT EYE Q4HR bottle - Follow Up or Referral - Forms/Instructions Exam - Constitutional Vitals: Period Temp Pulse Resp BP Sys/Plata Pulse Ox Last 24 Hr 98.2 F-99.5 F 85-109 0-101 99-151/50-78 94-100 General appearance: mild distress, morbidly obese - Respiratory Respiratory exam: Present: rhonchi - Cardiovascular Cardiovascular exam: Present: tachycardia - GI/Abdominal GI/Abdominal exam: Present: normal bowel sounds, soft - Extremities Exam Extremities exam: Present: normal inspection, normal capillary refill - Neurological Exam Neurological exam: Present: altered Discharge Results Procedures and tests throughout hospitalization: Pending Orders 10/25/16 07:00 Bronchial Washings C & Gram St Routine 10/27/16 09:30 Levetiracetam (Keppra) Routine 10/28/16 00:00 MRSA Surveillence, Inf Control Routine 10/28/16 11:00 Tobramycin,Peak Timed 10/31/16 04:00 Magnesium Routine Phosphorous Routine Prealbumin Routine Labs on day of discharge: Labs from last 24 hours 10/28/16 10/28/16 10/28/16 05:56 05:18 02:58 ABG pH 7.475 H ABG pCO2 42.6 ABG pO2 88.0 ABG HCO3 30.7 H ABG Total CO2 32.0 H ABG O2 Saturation 96.5 ABG Base Excess 6.5 H FiO2 50.00 Sodium 148 H Potassium 3.1 L Chloride 110 H Carbon Dioxide 31 Anion Gap 10.1 BUN 7 Creatinine 0.30 L GFR Calculation 194 BUN/Creatinine Ratio 23.00 H Glucose 98 POC Glucose 157 H Calculated Osmolality 291.3 Calcium 8.0 L Phosphorus 2.6 Magnesium 1.9 Prealbumin 11.4 L 10/28/16 10/27/16 10/27/16 00:16 17:58 11:00 ABG pH ABG pCO2 ABG pO2 ABG HCO3 ABG Total CO2 ABG O2 Saturation ABG Base Excess FiO2 Sodium Potassium Chloride Carbon Dioxide Anion Gap BUN Creatinine GFR Calculation BUN/Creatinine Ratio Glucose POC Glucose 102 100 109 H Calculated Osmolality Calcium Phosphorus Magnesium Prealbumin Preliminary micro results at discharge 10/25/16 07:00 Bronchial Washings Culture - Preliminary Bronchial Washings Pseudomonas aeruginosa Gram Negative Rods DS: Provider Date of admission: 10/23/16 23:36 Primary care physician: . No PCP Attending physician on admission: Ernesto Benavidez MD Consults: 10/24/16 01:04 Consult to Dietitian [CONS] Routine Reason for Dietitian: TF-Initiate/Manage 10/24/16 09:40 Consult to Physician [CONS] Routine Comment: sacral decub, pt known to you Consulting Provider: Kuldeep Molina Person Notified: sara Date Notified: 10/24/16 Time Notified: 09:46 Discharging clinician: Yeny Valverde MD
[2016-10-28] MEDS ORDERED: DEXT 5% NACL 0.45% KCL 40 MEQ 40 MEQ/1,000 ML BAG IV SCH (11:00)
[2016-10-28] MEDS: POTASSIUM CHLORIDE 20 MEQ/15 ML UDCUP PO SCH ×2 (11:12→14:03)
--- NOTE | 2016-10-28 12:14 | Infectious Disease Progress ---
Assessment and Plan (1) Acute respiratory failure Status: Acute Assessment and plan: We are treating pneumonia and multidrug-resistant Pseudomonas has been identified from sputum. Recommendations: 1. Discontinue meropenem 2. Continue IV tobramycin but peak was a bit high; discussed with clinical pharmacist and the dose will be decreased from 320 mg to 300 mg IV every 18 hours 3. Add inhaled tobramycin therapy to target this very resistant Pseudomonas as much as possible 4. Renal function monitoring at least 3 times a week on tobramycin We will follow patient at [facility] Current Visit: Yes Qualifiers: Respiratory failure complication: hypoxia Qualified Code(s): J96.01 - Acute respiratory failure with hypoxia (2) Fever Status: Acute Assessment and plan: Resolved. We are treating UTI and pneumonia. Current Visit: Yes (3) Leukocytosis Status: Acute Assessment and plan: Resolved Current Visit: Yes (4) Sepsis Status: Acute Current Visit: Yes Qualifiers: Sepsis type: sepsis due to unspecified organism Qualified Code(s): A41.9 - Sepsis, unspecified organism (5) Stage IV decubitus ulcer Status: Acute Assessment and plan: Continue local wound care. Current Visit: Yes Qualifiers: Pressure ulcer location: sacral region Qualified Code(s): L89.154 - Pressure ulcer of sacral region, stage 4 (6) Anoxic brain injury Status: Chronic Current Visit: Yes Infectious Disease - PN: Subj Interval history: Patient clinically stable over the weekend, no acute events. He still has tracheal secretions but somewhat less than last week. He has been afebrile. He supposed to be moving to [facility] today. Infectious Disease Exam (PN) - Constitutional Vitals: Temp Pulse Resp BP Pulse Ox 99.5 F 98 H 14 151/78 100 10/28/16 08:00 10/28/16 09:00 10/28/16 11:29 10/28/16 09:00 10/28/16 09:00 General appearance: mild distress, morbidly obese Exam: General appearance: no acute distress, no purposeful interaction - Eye Eye exam: Present: EOMI. no icterus Pupils: Present: JOSE - ENT ENT exam: ET tube in situ - Respiratory Respiratory exam: vesicular BS, no crepitations or wheezes heard - Cardiovascular Cardiovascular exam: regular rate and rhythm, no murmurs - GI/Abdominal GI/Abdominal exam: normal bowel sounds, soft, non-tender, no organomegaly or mass - Extremities Exam Extremities exam: no edema - Skin Skin exam: no rash Results - Labs CBC & BMP: 10/27/16 06:19 10/28/16 05:18 Lab Results: I have reviewed the past 24 hour labs (Multidrug-resistant Pseudomonas isolated from sputum, sensitive only to aminoglycosides. He had 6000 CFU's of multidrug-resistant Acinetobacter from urine as well as Ayesha species.)
[2016-10-28 14:06] VITALS: BP 129/70
[2016-10-28] MEDS ORDERED: TOBRAMYCIN 80 MG/2 ML VIAL RESP TX SCH (19:00)
== END 2016-10-28 15:02 | DRG 698 ==
LOC: N.ED 22:00 → SUATTDRO 23:36 → N.EDINP 23:36 → N.CC 23:58
PROVIDERS: ADMIT Family Medicine; ATTEND Internal Medicine